=== PATIENT | male | born 1955 | race Caucasian/White ===

== ENCOUNTER 2017-12-14 09:57 | Outpatient (RCR) | payer BC, SELFPAY | END 2018-03-13 10:43 | disposition home or self-care (01) | LOC: PT 09:57 | PROVIDERS: Family Provider Internal Medicine Adolescent Medicine; PCP Internal Medicine Adolescent Medicine | DX: I21.3 ST elevation (STEMI) myocardial infarction of unspecified site (principal) | CPT/HCPCS: 93798 ==

== ENCOUNTER 2018-01-03 17:00 | Emergency (ER) | payer BC, SELFPAY ==
[2018-01-03 17:01] VITALS: PULSE 81; RESP 18; TEMP 36.5; O2SAT 90; BMI 26.9
--- NOTE | 2018-01-03 17:08 | XR_ITS ---
XR chest 2V HISTORY: ITS.REASON: chest pain ORDERING PHYSICIAN: Wenceslao Cisse MD PATIENT AGE: 62 years COMPARISON: 11/01/2017 FINDINGS: Prior median sternotomy with CABG. There is cardiomegaly with pulmonary venous congestion and interstitial edema consistent with CHF. No lobar consolidation or collapse. No acute bony anomalies. IMPRESSION: CHF with interstitial edema.
[2018-01-03 17:25] LABS: Basophils % 0.3 % (0.1-2.0); Eosinophils # 0.3 K/mm3 (0.0-0.4); Eosinophils % 4.2 % (0.1-12.0); Hematocrit 41.2 % (42.0-52.0); Hemoglobin 13.5 g/dL (14.1-18.0); Lymphocytes # 2.5 K/mm3 (0.7-4.5); Lymphocytes % 35.3 K/mm3 (10-50); Mean Corpuscular HGB Conc 32.9 g/dL (31.8-35.4); Mean Corpuscular Hemoglobin 29.5 pg (27.0-31.2); Mean Corpuscular Volume 89.9 fl (80-94); Mean Platelet Volume 7.4 fl (7.4-10.4); Monocytes # 0.5 K/mm3 (0.1-1.0); Monocytes % 7.1 % (1.7-9.3); Neutrophils # 3.8 K/mm3 (1.8-7.8); Neutrophils % 53.2 % (37.0-80.0); Platelet Count 230 K/mm3 (142-424); Red Blood Count 4.58 M/mm3 (4.60-6.20); Red Cell Distribution Width 14.1 % (11.5-17.5); White Blood Count 7.2 K/mm3 (4.8-10.8)
[2018-01-03 17:34] LABS: Alanine Aminotransferase 24 U/L (12-78); Albumin Level 3.8 gm/dL (3.4-5.0); Alkaline Phosphatase 61 U/L (46-116); Anion Gap 11.3 mEq/L (5-15); Aspartate Amino Transferase 24 U/L (15-37); Bilirubin,Total 0.3 mg/dL (0.2-1.0); Blood Urea Nitrogen 19 mg/dL (7-18); Carbon Dioxide 31 mmol/L (21.0-32.0); Chloride 106 mmol/L (98-107); Creatinine Clearance Estimated 74 mL/min (0-300); Creatinine,Serum 1.13 mg/dL (0.70-1.30); Estimated Glomerular Filt Rate 66 ml/min (>60); GFR (African American) 79 ML/MIN (>60); Globulin 3.7 gm/dl (1.3-3.2); Glucose 106 mg/dL (74-106); Potassium 3.3 mmoL/L (3.5-5.1); Sodium 145 mmol/L (136-145); Total Protein,Serum 7.5 gm/dL (6.4-8.2)
--- NOTE | 2018-01-03 17:39 | HMH.EDCP ---
ED Disposition Clinical Impression: Chest pain Qualifiers: Chest pain type: other chest pain Qualified Code(s): R07.89 - Other chest pain Disposition: Xfer Short-Term Hosp Condition on Discharge: Good Referrals: Ten Mendoza MD [Primary Care Provider] - Time of Disposition: 17:40 - Critical Care Critical Care Time: No Attestation: On 01/03/18, the high probability of a clinically significant, sudden or life threatening deterioration of the following system(s) required my full and direct attention, intervention and personal management. The time I documented below is in addition to time spent performing reported procedures but includes the following listed in this critical care notation. Medical Decision Making - Medical Records Medical records reviewed: Yes: I reviewed the patient's medical records. Vital Signs: 01/03/18 17:01 01/03/18 18:30 Temperature 97.7 F Temperature Source Oral Pulse Rate [Left Brachial] 81 67 Respiratory Rate 18 Blood Pressure [Left Arm] 132/85 Blood Pressure Mean [Left Arm] 100 Blood Pressure Source [Left Arm] Automatic Cuff Automatic Cuff Blood Pressure Position [Left Arm] Supine Sitting 02 Sat by Pulse Oximetry 90 L 92 L Oxygen Delivery Method Nasal Cannula - Lab Data Lab results reviewed: Yes: I reviewed the patient's lab results. Lab Results 01/03/18 17:05: WBC 7.2, RBC 4.58 L, Hgb 13.5 L, Hct 41.2 L, MCV 89.9, MCH 29.5, MCHC 32.9, RDW 14.1, Plt Count 230, MPV 7.4, Neut % (Auto) 53.2, Lymph % (Auto) 35.3, Owsley % (Auto) 7.1, Eos % (Auto) 4.2, Baso % (Auto) 0.3, Neut # (Auto) 3.8, Lymph # (Auto) 2.5, Owsley # (Auto) 0.5, Eos # (Auto) 0.3, Baso # (Auto) 0.0 01/03/18 17:05: Sodium 145, Potassium 3.3 L, Chloride 106, Carbon Dioxide 31, Anion Gap 11.3, BUN 19 H, Creatinine 1.13, Estimated Creat Clear 74, Estimated GFR 66, Est GFR ( Amer) 79, Glucose 106, Calcium 9.0, Total Bilirubin 0.3, AST 24, ALT 24, Alkaline Phosphatase 61, Total Protein 7.5, Albumin 3.8, Globulin 3.7 H, Albumin/Globulin Ratio 1.0 L 01/03/18 17:05: Total Creatine Kinase 148, CK-MB (CK-2) 2.2, CK-MB (CK-2) Rel Index 1.5, Troponin I 0.04 Result diagrams: 01/03/18 17:05 01/03/18 17:05 Orders (Tests/Meds): ED MEDICATIONS Discontinued Medications Generic Name Dose Route Start Last Admin Trade Name Jeyq PRN Reason Stop Dose Admin Hydromorphone HCl 1 mg 01/03/18 17:08 01/03/18 17:11 Dilaudid 2mg/Ml Syringe IV 01/03/18 17:09 1 mg ONCE ONE Administration Ondansetron HCl 4 mg 01/03/18 17:08 01/03/18 17:11 Zofran 4mg/2ml Vial IV 01/03/18 17:09 4 mg ONCE ONE Administration ORDERS Category Date Time Status XR chest 2V Stat Exams 01/03/18 17:08 Taken Cardiac Enzymes Stat Lab 01/03/18 17:37 Ordered - Radiology Data #1 Image(s): Chest Image Reviewed: Yes I reviewed the patient's radiology results, Yes I reviewed the patient's radiology image Preliminary Findings: Normal/NAD - ECG Data Tracing #1 I reviewed this ECG and interpreted as documented below: ECG normal with no acute: arrhythmias, ischemia, conduction abnormalities, chamber hypertrophy Normal Sinus Rhythm: Yes Additional Comments: Sinus rhythm with first-degree AV block, right bundle branch block, inferior infarct, age undetermined, nonspecific repolarization defect - Physician Consults Physician Consulted: Dr Rios, covering for Dr Radford, technical photographer at [facility] Time: 18:46 Reason -: Pt condition, Transfer to another facilty, Cardiology Eval/Care Comment/Response: requested the patient to transfer to the hospitalist service, Dr. Christian Anderson Inquiry Pt receiving controlled substance: No - Reevaluation(s) Time: 18:38 Reevaluation #1: Upon reevaluation appears medically stable, chest pain-free, in no acute distress. Will contact Dr. Radford at [facility] in [place] to discuss transfer. Chest Pain HPI - General Chief Complaint: Chest Mary
[2018-01-03 18:18] LABS: CKMB Relative Index 1.5 U/L (0-4.0); Creatine Kinase 148 U/L (39-308); Creatine Kinase MB 2.2 mg/ml (0.0-3.6); Troponin I 0.04 ng/ml (0.00-0.06)
[2018-01-03 18:30] VITALS: BP 132/85; PULSE 67; O2SAT 92
[2018-01-03 19:18] VITALS: BP 139/94; PULSE 65; RESP 16; TEMP 36.6; O2SAT 91
== END 2018-01-03 19:45 | disposition short-term general hospital (02) ==
PROVIDERS: Emergency Provider Emergency Medicine; Family Provider Internal Medicine Adolescent Medicine; PCP Internal Medicine Adolescent Medicine
DX: R07.89 Other chest pain (principal); Z79.82 Long term (current) use of aspirin; I25.10 Atherosclerotic heart disease of native coronary artery without angina pectoris; E78.5 Hyperlipidemia, unspecified; I10 Essential (primary) hypertension; Z95.9 Presence of cardiac and vascular implant and graft, unspecified; Z95.5 Presence of coronary angioplasty implant and graft
CPT/HCPCS: 71046; 80053; 82550; 82553; 84484; 85025; 93005; 93041; 96374; 96375; 99283; J2405

== ENCOUNTER → 2018-11-15 12:34 | Outpatient (CLI) | payer BC, SELFPAY ==
--- NOTE | 2018-11-15 12:38 | US_ITS ---
US Arterial Ankle Brachial Ind History: Claudication, leg pain, hypertension, hyperlipidemia ORDERING PHYSICIAN: Ten Mendoza MD PATIENT AGE: 63 years TECHNIQUE: Segmental pressures obtained of both right and left leg. These are compared to brachial blood pressure to yield index at each level sampled including summary ESTHER. Exercise stress ABIs not performed as the baselines are normal per vascular lab protocol. The data sheets from the procedure are available in PACS FINDINGS Rest study only performed today No prior studies available for comparison. Blood pressures reported are in millimeters mercury. RIGHT LEG ESTHER = 1.1. RIGHT LEG TBI=.87 Brachial BP: 155 Thigh BP: 158 Calf BP: 169 Ankle PT: 168 Ankle DP : 168 Digit =138 LEFT LEG ESTHER = 1.1 LEFT LEG TBI= 0.86 Brachial BPD: 159 Thigh BP: 152 Calf BP: 167 Ankle PT:173 Ankle DP: 165 Digit = 137 Pulses and waveforms: Normal IMPRESSION: The ABIs as reported above are within normal limits. Waveforms and pulses are also unremarkable.
== END ==
PROVIDERS: PCP Internal Medicine Adolescent Medicine; Visit Provider Internal Medicine Adolescent Medicine
DX: I73.9 Peripheral vascular disease, unspecified (principal)
CPT/HCPCS: 93922

== ENCOUNTER → 2020-05-07 14:49 | Outpatient (CLI) | payer BC, SELFPAY ==
[2020-05-07 15:25] LABS: Basophils % 0.5 % (0.1-2.0); Eosinophils # 0.2 K/mm3 (0.0-0.4); Hematocrit 43.7 % (42.0-52.0); Hemoglobin 14.4 g/dL (14.1-18.0); Lymphocytes # 1.4 K/mm3 (0.7-4.5); Lymphocytes % 23.8 % (10-50); Mean Corpuscular HGB Conc 33.1 g/dL (31.8-35.4); Mean Corpuscular Hemoglobin 31.4 pg (27.0-31.2); Mean Corpuscular Volume 94.9 fl (80-94); Mean Platelet Volume 7.5 fl (7.4-10.4); Monocytes # 0.4 K/mm3 (0.1-1.0); Monocytes % 6.6 % (1.7-9.3); Neutrophils # 3.8 K/mm3 (1.8-7.8); Neutrophils % 66.2 % (37.0-80.0); Platelet Count 179 K/mm3 (142-424); Red Cell Distribution Width 13.3 % (11.5-17.5); White Blood Count 5.7 K/mm3 (4.8-10.8)
[2020-05-07 18:23] LABS: Chloride 103 mmol/L (98-107); Potassium 3.9 mmoL/L (3.5-5.1); Sodium 139 mmol/L (136-145)
[2020-05-07 18:25] LABS: Blood Urea Nitrogen 25 mg/dl (9-20); Estimated Glomerular Filt Rate 75 ml/min (>60); GFR (African American) 90 ML/MIN (>60)
[2020-05-07 18:26] LABS: Alanine Aminotransferase 24 U/L (12-78); Albumin Level 3.9 g/dl (3.5-5.0); Albumin/Globulin Ratio 1.3 (1.1-1.8); Alkaline Phosphatase 57 U/L (38-126); Anion Gap 9.9 mEq/L (5-15); Aspartate Amino Transferase 30 U/L (17-59); Bilirubin,Total 0.7 mg/dl (0.2-1.3); Calcium 9.3 mg/dl (8.4-10.2); Carbon Dioxide 30 mmol/L (22.0-30.0); Chol/HDL Ratio 3.5 (1-3.5); Cholesterol 167 mg/dl (140-200); Creatine Kinase 79 U/L (55-170); Glucose 95 mg/dl (74-100); HDL Cholesterol 48 mg/dl (40-60); Total Protein,Serum 6.9 g/dl (6.3-8.2); Triglycerides 100 mg/dl (30-150); VLDL Cholesterol 20 mg/dL (0-40)
[2020-05-07 18:35] LABS: CKMB Relative Index 2.3 U/L (0-4.0); Creatine Kinase MB 1.8 ng/ml (0.0-2.03)
[2020-05-07 18:38] LABS: Troponin I 0.03 ng/ml (0.00-0.034)
== END ==
PROVIDERS: Visit Provider Nurse Practitioner Family
DX: I20.9 Angina pectoris, unspecified (principal); E78.2 Mixed hyperlipidemia; I10 Essential (primary) hypertension
CPT/HCPCS: 36415; 80053; 80061; 82550; 82553; 84484; 85025

== ENCOUNTER 2020-05-12 19:36 | Emergency (ER) | payer BC, SELFPAY ==
[2020-05-12 19:36] VITALS: PULSE 74
[2020-05-12 19:42] VITALS: BP 158/96; PULSE 74; RESP 16; TEMP 37; O2SAT 98; BMI 27.1
--- NOTE | 2020-05-12 19:50 | XR_ITS ---
PROCEDURE: XR CHEST 2V CLINICAL HISTORY: chest pain Left-sided chest pain, heart disease COMPARISON: CXR1 CHEST-PORTABLE from 11/01/2017 CXR2V XR chest 2V from 01/03/2018 CXR1VP XR chest portable from 07/24/2018 FINDINGS: Prior CABG with borderline cardiomegaly without failure. The lungs are clear without infiltrates, suspicious nodules, or pleural effusions. Degenerative changes thoracic spine IMPRESSION: No change with no acute finding Dictated by: Arturo Fuller MD 05/13/2020 09:09 Electronically signed by Arturo Fuller MD in [place] 05/13/2020 09:09
--- NOTE | 2020-05-12 19:50 | ECG_ITS ---
APPROVED REPORT Exam: Resting ECG HR:74 bpm ECG Measurements Heart Rate 74 AXES ME 270 P 44 QRSd 142 QRS 46 QT 476 T 67 QTc 528 <Conclusion> Sinus rhythm with 1st degree AV block with occasional premature ventricular complexes Right bundle branch block Inferior infarct, age undetermined Abnormal ECG Electronically signed by : Ten Mendoza, 05/13/2020 17:08:51
--- NOTE | 2020-05-12 20:04 | HMH.EDCP ---
ED Disposition Clinical Impression: Stable angina, RBBB Disposition: Home, Self-Care Condition on Discharge: Good Instructions: DI for Angina Additional Instructions: call card in am Referrals: Jessica Valentine APRN [Primary Care Provider] - - Critical Care Critical Care Time: No Attestation: On 05/12/20, the high probability of a clinically significant, sudden or life threatening deterioration of the following system(s) required my full and direct attention, intervention and personal management. The time I documented below is in addition to time spent performing reported procedures but includes the following listed in this critical care notation. Medical Decision Making - Medical Records Medical records reviewed: Yes: I reviewed the patient's medical records. - Justin Inquiry Pt receiving controlled substance: No Vital Signs: 05/12/20 19:36 05/12/20 19:42 05/12/20 20:08 Temperature 98.6 F Temperature Source Oral Pulse Rate 74 Pulse Rate [Right] 74 54 L Respiratory Rate 16 18 Blood Pressure [Right Arm] 158/96 H 148/84 H Blood Pressure Mean [Right Arm] 116 105 Blood Pressure Source [Right Arm] Automatic Cuff Blood Pressure Position [Right Arm] Supine 02 Sat by Pulse Oximetry 98 97 Oxygen Delivery Method Room Air Room Air 05/12/20 20:37 Temperature Temperature Source Pulse Rate Pulse Rate [Right] 53 L Respiratory Rate 16 Blood Pressure [Right Arm] 135/79 Blood Pressure Mean [Right Arm] 97 Blood Pressure Source [Right Arm] Blood Pressure Position [Right Arm] 02 Sat by Pulse Oximetry 97 Oxygen Delivery Method Room Air - Lab Data Lab results reviewed: Yes: I reviewed the patient's lab results. Lab Results 05/12/20 19:54: WBC 5.5, RBC 4.16 L, Hgb 13.4 L, Hct 38.8 L, MCV 93.2, MCH 32.1 H, MCHC 34.4, RDW 13.7, Plt Count 186, MPV 8.1, Neut % (Auto) 58.0, Lymph % (Auto) 31.1, Edmunds % (Auto) 6.2, Eos % (Auto) 4.4, Baso % (Auto) 0.3, Neut # (Auto) 3.2, Lymph # (Auto) 1.7, Edmunds # (Auto) 0.3, Eos # (Auto) 0.2, Baso # (Auto) 0.0 05/12/20 19:54: Sodium 140, Potassium 3.8, Chloride 107, Carbon Dioxide 27, Anion Gap 9.8, BUN 22 H, Creatinine 1.10, Estimated Creat Clear 73, Estimated GFR 67, Est GFR ( Amer) 81, Glucose 114 H, Calcium 9.1, Troponin I < 0.01 Result diagrams: 05/12/20 19:54 05/12/20 19:54 Orders (Tests/Meds): ED MEDICATIONS Generic Name Dose Route Start Last Admin Trade Name Freq PRN Reason Stop Dose Admin Sodium Chloride 1,000 mls @ 999 mls/hr 05/12/20 20:00 05/12/20 20:10 Sod Chlor 0.9% 1000ml Bag IV 05/12/20 21:00 999 mls/hr .Q1H1M JENELLE Administration Discontinued Medications Generic Name Dose Route Start Last Admin Trade Name Freq PRN Reason Stop Dose Admin Aspirin 243 mg 05/12/20 19:49 05/12/20 19:57 Aspirin 81mg Chewable Tablet PO 05/12/20 19:50 243 mg ONCE ONE Administration Nitroglycerin 1 gm 05/12/20 19:49 05/12/20 19:57 Nitroglycerin 1 Inch Oint Udp TD 05/12/20 19:50 1 gm ONCE ONE Administration ORDERS Category Date Time Status XR chest 2V Stat Exams 05/12/20 19:50 Taken Troponin I Q3H Lab 05/12/20 23:00 Ordered Troponin I Q3H Lab 05/13/20 02:00 Ordered - Radiology Data #1 Image(s): Chest Image Reviewed: Yes I reviewed the patient's radiology image Preliminary Findings: Normal/NAD - ECG Data Tracing #1 Normal Sinus Rhythm: Yes Ischemic changes: non-specific ST-T wave changes Conduction abnormalities present: RBBB, 1st degree AV block - Physician Consults Physician Consulted: raz Reason -: Pt condition Chest Pain HPI - General Chief Complaint: Chest Pain Stated Complaint: CHEST PAIN Time Seen by Provider: 05/12/20 20:00 Mode of Arrival: Ambulatory Source of Information: Patient, Medical Record Limitations: No Limitations Description of Symptoms (Recalled from ER Triage Doc. by RN): left chest pain resolved after 3 home Nitro's - History of Present Illness
[2020-05-12 20:06] LABS: Basophils % 0.3 % (0.1-2.0); Eosinophils # 0.2 K/mm3 (0.0-0.4); Eosinophils % 4.4 % (0.1-12.0); Hematocrit 38.8 % (42.0-52.0); Hemoglobin 13.4 g/dL (14.1-18.0); Lymphocytes # 1.7 K/mm3 (0.7-4.5); Lymphocytes % 31.1 % (10-50); Mean Corpuscular HGB Conc 34.4 g/dL (31.8-35.4); Mean Corpuscular Hemoglobin 32.1 pg (27.0-31.2); Mean Corpuscular Volume 93.2 fl (80-94); Mean Platelet Volume 8.1 fl (7.4-10.4); Monocytes # 0.3 K/mm3 (0.1-1.0); Monocytes % 6.2 % (1.7-9.3); Neutrophils # 3.2 K/mm3 (1.8-7.8); Platelet Count 186 K/mm3 (142-424); Red Blood Count 4.16 M/mm3 (4.60-6.20); Red Cell Distribution Width 13.7 % (11.5-17.5); White Blood Count 5.5 K/mm3 (4.8-10.8)
[2020-05-12 20:08] VITALS: BP 148/84; PULSE 54; RESP 18; O2SAT 97
[2020-05-12 20:28] LABS: Chloride 107 mmol/L (98-107)
[2020-05-12 20:29] LABS: Potassium 3.8 mmoL/L (3.5-5.1); Sodium 140 mmol/L (136-145)
[2020-05-12 20:32] LABS: Anion Gap 9.8 mEq/L (5-15); Blood Urea Nitrogen 22 mg/dl (9-20); Calcium 9.1 mg/dl (8.4-10.2); Carbon Dioxide 27 mmol/L (22.0-30.0); Creatinine Clearance Estimated 73 mL/min (50-200); Estimated Glomerular Filt Rate 67 ml/min (>60); GFR (African American) 81 ML/MIN (>60); Glucose 114 mg/dl (74-100)
[2020-05-12 20:37] VITALS: BP 135/79; PULSE 53; RESP 16; O2SAT 97
[2020-05-12 20:56] LABS: Troponin I < 0.01 ng/ml (0.00-0.034)
--- NOTE | 2020-05-12 21:10 | PC.NURSE ---
Dr Ta consulted with Dr Mancia
[2020-05-12 21:24] VITALS: BP 142/92; PULSE 69; RESP 16; TEMP 37; O2SAT 96
== END 2020-05-12 21:26 | disposition home or self-care (01) ==
PROVIDERS: Emergency Medicine; Emergency Provider Emergency Medicine; PCP Nurse Practitioner Family
DX: I20.8 Other forms of angina pectoris (principal); I45.10 Unspecified right bundle-branch block; I25.10 Atherosclerotic heart disease of native coronary artery without angina pectoris; I10 Essential (primary) hypertension; E78.5 Hyperlipidemia, unspecified; Z95.1 Presence of aortocoronary bypass graft; Z79.899 Other long term (current) drug therapy
CPT/HCPCS: 71046; 80048; 84484; 85025; 93005; 96365; 99284

== ENCOUNTER 2020-10-11 06:23 | Emergency (ER) | payer BC, SELFPAY ==
[2020-10-11 06:24] VITALS: BP 142/91; PULSE 67; RESP 16; TEMP 36.6; O2SAT 98; BMI 25.8
--- NOTE | 2020-10-11 06:51 | HMH.EDURI ---
ED Disposition Clinical Impression: Pharyngitis Disposition: Home, Self-Care Condition on Discharge: Good Instructions: DI for Acute Bronchitis Prescriptions: Azithromycin 250 mg PO DAILY 5 Days #6 tab Transmission Status: Pending to [id number] methylPREDNISolone [Medrol 4mg tab] 4 mg PO DIRECTED #21 tab Transmission Status: Pending to [id number] Referrals: Ten Mendoza MD [Primary Care Provider] - - Critical Care Critical Care Time: No Attestation: On 10/11/20, the high probability of a clinically significant, sudden or life threatening deterioration of the following system(s) required my full and direct attention, intervention and personal management. The time I documented below is in addition to time spent performing reported procedures but includes the following listed in this critical care notation. Medical Decision Making - Medical Records Medical records reviewed: Yes: I reviewed the patient's medical records. - Justin Inquiry Pt receiving controlled substance: No Vital Signs: 10/11/20 06:24 Temperature 97.9 F Temperature Source Oral Pulse Rate [Right Radial] 67 Respiratory Rate 16 Blood Pressure [Left Arm] 142/91 H Blood Pressure Mean [Left Arm] 108 Blood Pressure Source [Left Arm] Automatic Cuff Blood Pressure Position [Left Arm] Sitting 02 Sat by Pulse Oximetry 98 Oxygen Delivery Method Room Air - Lab Data Lab results reviewed: Yes: I reviewed the patient's lab results. URI/Sore Throat HPI - General Chief Complaint: Upper Respiratory Infection Stated Complaint: Sore Throat Time Seen by Provider: 10/11/20 06:51 Mode of Arrival: Ambulatory Limitations: No Limitations Description of Symptoms (Recalled from ER Triage Doc. by RN): Pt c/o soar throat starting monday, progressivly getting worse. Pt denies fevers, SOA, cough, N/V/D, nasal drainage. - History of Present Illness HPI Narrative: 65-year-old gentleman, presents to the emergency department with a sore throat and headache. Patient states that the symptoms started about 3 days ago and gradually gotten worse today presented here to the emergency department. Patient states it hurts when he swallows and he states the pain is about 3 out of 10. He also states he feels a knot in his neck. He states alleviating factors include drinking cold fluids exacerbating factors include swallowing. Patient denies any recent fever shakes or chills. Patient denies any cough or shortness of breath. Patient denies any nausea vomiting diarrhea. Patient denies any body aches. - Related Data Home Medications Medication Instructions Recorded Confirmed aspirin 81 mg tablet,delayed 81 mg PO DAILY 12/28/17 05/12/20 release hydrochlorothiazide 25 mg tablet 25 mg PO DAILY 12/28/17 05/12/20 isosorbide mononitrate 120 mg 120 mg PO DAILY 12/28/17 05/12/20 tablet,extended release 24 hr metoprolol succinate 50 mg 50 mg PO DAILY tab 12/28/17 05/12/20 tablet,extended release 24 hr nitroglycerin 0.4 mg sublingual 0.4 mg SUBLINGUAL Q5M PRN 12/28/17 05/12/20 tablet pravastatin 20 mg tablet 20 mg PO QHS 12/28/17 05/12/20 ranolazine 1,000 mg 1,000 mg PO BID tab 12/28/17 05/12/20 tablet,extended release,12 hr Previous Rx's Medication Instructions Recorded Azithromycin 250 mg PO DAILY 5 Days #6 tab 10/11/20 methylPREDNISolone [Medrol 4mg 4 mg PO DIRECTED #21 tab 10/11/20 tab] Allergies Allergy/AdvReac Type Severity Reaction Status Date / Time morphine Allergy Intermediate HIVES,SWEAT Verified 01/03/18 17:07 [facility] History - Hepatitis A Screen Drug use history?: No High risk sexual behaviors?: No History of sexually transmitted infection?: No Currently employed?: No Childcare worker?: No Do you have indoor plumbing?: Yes Do you have electricity?: Yes Attestation statement:: This patient has been screened for Hepatitis A risk factors. I have reviewed the patient's past m
[2020-10-11 07:02] VITALS: BP 138/62; PULSE 68; RESP 14; TEMP 36.6; O2SAT 97
== END 2020-10-11 07:04 | disposition home or self-care (01) ==
PROVIDERS: Emergency Provider Family Medicine; PCP Internal Medicine Adolescent Medicine
DX: J02.9 Acute pharyngitis, unspecified (principal); I10 Essential (primary) hypertension; I25.10 Atherosclerotic heart disease of native coronary artery without angina pectoris; E78.5 Hyperlipidemia, unspecified; Z95.1 Presence of aortocoronary bypass graft; Z88.5 Allergy status to narcotic agent; Z79.899 Other long term (current) drug therapy
CPT/HCPCS: 99281

== ENCOUNTER → 2021-04-21 09:40 | Outpatient (CLI) | payer BC, SELFPAY ==
[2021-04-21 10:06] LABS: Basophils % 0.5 % (0.1-2.0); Eosinophils # 0.2 K/mm3 (0.0-0.4); Eosinophils % 2.5 % (0.1-12.0); Hematocrit 43.4 % (42.0-52.0); Hemoglobin 14.4 g/dL (14.1-18.0); Lymphocytes # 1.4 K/mm3 (0.7-4.5); Lymphocytes % 22.3 % (10-50); Mean Corpuscular HGB Conc 33.1 g/dL (31.8-35.4); Mean Corpuscular Hemoglobin 30.7 pg (27.0-31.2); Mean Corpuscular Volume 92.7 fl (80-94); Mean Platelet Volume 7.6 fl (7.4-10.4); Monocytes # 0.4 K/mm3 (0.1-1.0); Monocytes % 5.6 % (1.7-9.3); Neutrophils # 4.3 K/mm3 (1.8-7.8); Neutrophils % 69.1 % (37.0-80.0); Platelet Count 195 K/mm3 (142-424); Red Blood Count 4.68 M/mm3 (4.60-6.20); Red Cell Distribution Width 13.8 % (11.5-17.5); White Blood Count 6.3 K/mm3 (4.8-10.8)
[2021-04-21 11:01] LABS: Alanine Aminotransferase 24 U/L (12-78); Albumin Level 4.2 g/dl (3.5-5.0); Albumin/Globulin Ratio 1.5 (1.1-1.8); Alkaline Phosphatase 65 U/L (38-126); Aspartate Amino Transferase 33 U/L (17-59); Bilirubin,Total 0.8 mg/dl (0.2-1.3); Blood Urea Nitrogen 27 mg/dl (9-20); Carbon Dioxide 28 mmol/L (22.0-30.0); Chloride 105 mmol/L (98-107); Chol/HDL Ratio 3.7 (1-3.5); Cholesterol 174 mg/dl (140-200); Estimated Glomerular Filt Rate 75 ml/min (>60); GFR (African American) 90 ML/MIN (>60); Globulin 2.8 g/dL (1.3-3.2); Glucose 113 mg/dl (74-100); HDL Cholesterol 47 mg/dl (40-60); Sodium 141 mmol/L (136-145); Triglycerides 69 mg/dl (30-150); VLDL Cholesterol 14 mg/dL (0-40)
[2021-04-21 11:13] LABS: Direct LDL Cholesterol 108.03 mg/dL (100-129)
[2021-04-21 11:19] LABS: 25-OH Vitamin D, Total 34.8 ng/mL (30-100); Free Thyroxine Index 2.9 ug/dL (5.93-13.13); T4 (Thyroxine) 7.9 ug/dl (5.53-11.0); Triiodothryronine (T3) Uptake 37 % (23.5-40.5)
[2021-04-21 11:33] LABS: Thyroid Stimulating Hormone 2.67 uIU/mL (0.465-4.68)
[2021-04-21 11:35] LABS: Prostate Specific Ag Screen 50.7 ng/ml (0.0-4.0)
[2021-04-21 11:53] LABS: Vitamin B12 171 pg/mL (239-931)
== END ==
PROVIDERS: Visit Provider Internal Medicine Adolescent Medicine
DX: I25.10 Atherosclerotic heart disease of native coronary artery without angina pectoris (principal); E78.2 Mixed hyperlipidemia; R53.81 Other malaise; R53.83 Other fatigue; Z12.5 Encounter for screening for malignant neoplasm of prostate
CPT/HCPCS: 36415; 80053; 80061; 82306; 82607; 84436; 84443; 84479; 85025; G0103

== ENCOUNTER → 2021-04-29 10:18 | Outpatient (CLI) | payer BC, SELFPAY ==
[2021-04-30 08:15] LABS: PSA, Free 4.38 ng/mL; Prostate Specific Ag 50.7 ng/mL (0.0-4.0)
[2021-04-30 17:32] LABS: Antiparietal Cell Antibody 74.8 Units (0.0-20.0)
== END ==
PROVIDERS: Visit Provider Internal Medicine Adolescent Medicine
DX: R97.20 Elevated prostate specific antigen [PSA] (principal); E53.8 Deficiency of other specified B group vitamins
CPT/HCPCS: 36415; 83516; 84153; 84154

== ENCOUNTER → 2021-05-11 15:19 | Outpatient (CLI) | payer BC, SELFPAY ==
--- NOTE | 2021-05-11 | ECG_ITS ---
APPROVED REPORT Exam: Resting ECG HR:61 bpm ECG Measurements Heart Rate 61 AXES AL 208 P 37 QRSd 144 QRS -15 QT 472 T 86 QTc 475 Conclusion Sinus rhythm with premature supraventricular complexes Left ventricular hypertrophy RBBB Abnormal ECG Electronically signed by : Ten Mendoza, 05/12/2021 17:50:18
[2021-05-11 16:06] LABS: Basophils % 0.4 % (0.1-2.0); Eosinophils # 0.2 K/mm3 (0.0-0.4); Eosinophils % 2.8 % (0.1-12.0); Hematocrit 39.4 % (42.0-52.0); Hemoglobin 13.6 g/dL (14.1-18.0); Lymphocytes # 1.9 K/mm3 (0.7-4.5); Mean Corpuscular HGB Conc 34.4 g/dL (31.8-35.4); Mean Corpuscular Hemoglobin 31.2 pg (27.0-31.2); Mean Corpuscular Volume 90.7 fl (80-94); Mean Platelet Volume 7.6 fl (7.4-10.4); Monocytes # 0.4 K/mm3 (0.1-1.0); Monocytes % 6.7 % (1.7-9.3); Neutrophils # 3.9 K/mm3 (1.8-7.8); Neutrophils % 61.2 % (37.0-80.0); Platelet Count 193 K/mm3 (142-424); Red Blood Count 4.34 M/mm3 (4.60-6.20); White Blood Count 6.4 K/mm3 (4.8-10.8)
[2021-05-11 16:28] LABS: Chloride 104 mmol/L (98-107); Potassium 3.8 mmoL/L (3.5-5.1); Sodium 141 mmol/L (136-145)
[2021-05-11 16:31] LABS: Blood Urea Nitrogen 29 mg/dl (9-20); Estimated Glomerular Filt Rate 67 ml/min (>60); GFR (African American) 81 ML/MIN (>60)
[2021-05-11 16:32] LABS: Anion Gap 12.8 mEq/L (5-15); Carbon Dioxide 28 mmol/L (22.0-30.0); Glucose 88 mg/dl (74-100)
== END ==
PROVIDERS: Visit Provider Otolaryngology
DX: Z20.822 Contact with and (suspected) exposure to COVID-19; Z01.818 Encounter for other preprocedural examination; D23.39 Other benign neoplasm of skin of other parts of face
CPT/HCPCS: 36415; 80048; 85025; 93005; U0003

== ENCOUNTER 2021-05-13 07:23 | Day surgery (SDC) | payer BC, SELFPAY ==
[2021-05-07 13:57] VITALS: BMI 26.6
[2021-05-13] VITALS (7 sets, daily range): BP systolic 110–139; BP diastolic 68–95; PULSE 56–59; RESP 16–18; TEMP 36.2–36.4; O2SAT 92–97
--- NOTE | 2021-05-13 08:13 | HMH.ANESCL ---
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 Consent for Planned Operative Procedure(s) Verified: Yes - Additional verifications Anesthesia Reactions: No Hx Blood Transfusions: Yes Blood Transfusion Reaction: No - Airway Assessment C-Spine Mobility Assessed: Yes TMJ Mobility Assessed: Yes Dentition: Dentures-good fit - Neurological Assessment Level of Consciousness: Awake, Alert, Appropriate - Anesthesia Plan Anesthesia Risk discussed: Yes Anesthesia Plan: Verified ASA Class: III Anesthesia Type: MAC [facility] History I have reviewed the patient's past medical history: Yes Medical History: Reports:: Coronary Artery Disease, Hyperlipidemia, Hypertension Denies:: Cancer, Diabetes Mellitus Type 1, Diabetes Mellitus Type 2, Internal Pacemaker, MRSA, Seizures *Have you ever received a pneumonia vaccine?: No *Have you received a flu vaccine this season?: No Other Medical History: Denies: Blood Transfusion Reaction Anesthesia experience/problems:: none Other Surgeries: Yes: Coronary Stent, Other (CABG, LHC-stents). No: Pacemaker Amputation: No Fractures: No - *Social History Last grade of school completed: 5th or 6th Smoking Status: Never smoker Alcohol Intake: never Alcohol Intake Frequency:: other Substance Use Type: denies use *Occupational Status:: employed Housing: house *Travel in the last 8 weeks: None Family Hx:: Coronary Artery Disease
--- NOTE | 2021-05-13 10:23 | P.OP_ITS ---
Date of procedure: 05/13/21 Pre-op Diagnosis:: cyst right taoist 3.8 cm Post-op Diagnosis:: same Procedure performed:: Excision of cyst right taoist 3.8 cm with tissue rearrangement Z-plasty repair Surgeon:: Kalen Barajas MD MAINTENANCE PLANNING CLERK:: Juan Paiz Anesthesia: MAC Estimated blood loss (mL): 5 Operative findings:: same Operative note:: With the patient under local MAC anesthetic the right taoist was prepped and draped. There was a lesion measuring at least 3 cm and an incision was made over the lesion and the lesion was identified as a cystic lesion extending deeply and it was fully mobilized using tenotomy scissors and removed in entirety. Bleeding was less than 5 cc and stopped with suction cautery. Lateral and medial incisions were made and a tissue rearrangement Z-plasty repair was done after Surgicel snow was placed in the defect. The skin was then repaired using 2-0 nylon, and Dermabond was applied. An excellent tissue rearrangement Z-plasty was performed and and dressings were applied. Patient was sent to recovery in good general condition. Condition: stable Disposition: PACU Complications:: none
== END 2021-05-13 10:45 | disposition home or self-care (01) ==
LOC: OR 07:24
PROVIDERS: PCP Internal Medicine Adolescent Medicine; Visit Provider Otolaryngology
PROC: (CPT 14040; principal; 2021-05-13 10:00)
DX: L72.0 Epidermal cyst (principal); I10 Essential (primary) hypertension; I25.10 Atherosclerotic heart disease of native coronary artery without angina pectoris; E78.5 Hyperlipidemia, unspecified; Z95.818 Presence of other cardiac implants and grafts; Z82.49 Family history of ischemic heart disease and other diseases of the circulatory system; Z88.5 Allergy status to narcotic agent; Z79.82 Long term (current) use of aspirin; Z79.899 Other long term (current) drug therapy
CPT/HCPCS: 14040

== ENCOUNTER → 2021-05-14 10:34 | Outpatient (CLI) | payer BC, SELFPAY ==
[2021-05-14 10:57] LABS: Basophils % 0.1 % (0.1-2.0); Eosinophils # 0.1 K/mm3 (0.0-0.4); Eosinophils % 0.4 % (0.1-12.0); Hematocrit 40.3 % (42.0-52.0); Hemoglobin 13.8 g/dL (14.1-18.0); Lymphocytes # 1.4 K/mm3 (0.7-4.5); Lymphocytes % 8.3 % (10-50); Mean Corpuscular HGB Conc 34.2 g/dL (31.8-35.4); Mean Corpuscular Hemoglobin 30.9 pg (27.0-31.2); Mean Corpuscular Volume 90.4 fl (80-94); Mean Platelet Volume 8.1 fl (7.4-10.4); Monocytes # 0.9 K/mm3 (0.1-1.0); Monocytes % 5.3 % (1.7-9.3); Neutrophils % 85.8 % (37.0-80.0); Platelet Count 217 K/mm3 (142-424); Red Blood Count 4.46 M/mm3 (4.60-6.20); Red Cell Distribution Width 14.1 % (11.5-17.5); White Blood Count 16.4 K/mm3 (4.8-10.8)
[2021-05-14 11:01] LABS: MANUAL DIFFERENTIAL MANUAL DIFFERENTIAL (MANUAL DIFF)
[2021-05-14 11:28] LABS: Chloride 106 mmol/L (98-107); Lymphocytes % 16 % (10-50); Monocytes % 5 % (2-9); Neutrophils % 79 % (42-76); Platelet Estimate Normal; RBC Morphology Normal; Sodium 141 mmol/L (136-145); Total Cells Counted 100
[2021-05-14 11:30] LABS: Alanine Aminotransferase 18 U/L (12-78); Alkaline Phosphatase 52 U/L (38-126); Aspartate Amino Transferase 33 U/L (17-59); Bilirubin,Total 0.7 mg/dl (0.2-1.3); Blood Urea Nitrogen 23 mg/dl (9-20); Carbon Dioxide 24 mmol/L (22.0-30.0); Estimated Glomerular Filt Rate 96 ml/min (>60); GFR (African American) 117 ML/MIN (>60)
[2021-05-14 11:31] LABS: Albumin Level 4.2 g/dl (3.5-5.0); Albumin/Globulin Ratio 1.4 (1.1-1.8); Calcium 9.3 mg/dl (8.4-10.2); Glucose 121 mg/dl (74-100); Total Protein,Serum 7.2 g/dl (6.3-8.2)
[2021-05-14 11:43] LABS: Troponin I < 0.01 ng/ml (0.00-0.034)
== END ==
PROVIDERS: Visit Provider Internal Medicine Adolescent Medicine
DX: I20.8 Other forms of angina pectoris (principal)
CPT/HCPCS: 36415; 80053; 84484; 85007; 85025

== ENCOUNTER → 2021-05-24 08:41 | Outpatient (CLI) | payer BC, SELFPAY ==
--- NOTE | 2021-05-24 08:41 | NM_ITS ---
PROCEDURE: NM BONE SCAN WHOLE BODY CLINICAL INDICATION: elevated psa COMPARISON: No exams were available for comparison TECHNIQUE: Dose 25.4 mCi technetium MDP FINDINGS: Anterior and posterior images are obtained of the entire skeleton. There was a mild amount of retained activity within the urinary bladder despite patient urinating and with repeat images. No abnormal activity evident that would indicate metastatic disease. Nonspecific increased activity noted in the right great toe and in the patella and shoulders. There is a small focus of increased activity involving the right superior pubic ramus medially. This is nonspecific and persist on the repeat pelvic images. Radiographs of this region may provide further evaluation. IMPRESSION: Overall, no convincing evidence of metastatic disease. There is a small focus of increased activity involving the right superior pubic ramus medially. Suggest radiograph for further evaluation to assure this does not represent a single blastic focus. Dictated by: Arturo Fuller MD 05/25/2021 15:00 Arturo Fuller MD in [place] 05/25/2021 15:00
--- NOTE | 2021-05-24 09:29 | HMH.ITSHM ---
Current Home Medications as stated by this patient Reynaldo Bo or sales representative education courses. RANOLAZINE PRAVASTATIN NITRO METOPROLOL ISOSORBIDE HCTZ ASA CLOPIDOGREL
[2021-05-24 14:34] LABS: Blood Urea Nitrogen 22 mg/dl (9-20); Estimated Glomerular Filt Rate 84 ml/min (>60); GFR (African American) 102 ML/MIN (>60)
== END ==
PROVIDERS: PCP Internal Medicine Adolescent Medicine; Visit Provider Urology
DX: R97.20 Elevated prostate specific antigen [PSA] (principal)
CPT/HCPCS: 36415; 78306; 82565; 84520; A9503

== ENCOUNTER → 2021-05-24 13:23 | Outpatient (CLI) | payer BC, SELFPAY | PROVIDERS: Visit Provider Urology | DX: Z01.812 Encounter for preprocedural laboratory examination (principal) | CPT/HCPCS: 36415; 82565; 84520 ==

== ENCOUNTER → 2021-05-28 10:09 | Outpatient (CLI) | payer BC, SELFPAY ==
--- NOTE | 2021-05-28 10:10 | CT_ITS ---
PROCEDURE: CT ABDOMEN PELVIS W CON CLINICAL INDICATION: elvated psa COMPARISON: No exams were available for comparison TECHNIQUE: IV Contrast: 75ML Isovue 370 Oral Contrast None Axial images obtained with sagittal and coronal reformats. All CT scans at the facility use one or more dose reduction, viz: automated exposure control, ma/kV adjustment per patient size (including targeted exams where dose is matched to indication, i.e. head), or iterative reconstruction technique. FINDINGS: LOWER THORAX: There are no previous exams available for comparison. There are bilateral noncalcified nodules in the lung bases. This includes a 9 mm nodule along the minor fissure on the right and an 8 mm nodule in the right perihilar region. There is a 6 mm noncalcified nodule in the right lower lobe other smaller nodules are present. Calcification involves the left hemidiaphragm and there is pleural calcification along the left posterior hemithorax. There has been a prior CABG with significant coronary artery calcification. ABDOMEN & PELVIS: The liver, spleen, and pancreas has an unremarkable appearance. Left adrenal gland is slightly enlarged but maintains an adrenal form shape. Gallstones are present. There is an exophytic cyst off the lower pole of the left kidney posteriorly at 3.5 cm. No renal calculi or hydronephrosis. No ureteral calculi. No evidence of appendicitis. No intestinal obstruction or free air. There is a mild amount of retained colonic feces. No evidence of diverticulitis. There is a small umbilical hernia containing fat. The prostate is somewhat prominent at 4 x 4 cm with some lobularity along the upper aspect of the prostate on the right. No pelvic adenopathy. Atheromatous changes involve the aortoiliac vessels with mild ectasia of the lower abdominal aorta at 2.6 cm. There is mild dilatation of the right and left common iliac artery at 1.6 cm on the right and 1.4 cm on the left. There is some mural thrombus within the distal abdominal aorta. Plaque is present at the ostium of the celiac artery. Small sclerotic focus is present in the right femoral neck and may be due to a bone island IMPRESSION: 1. Multiple bilateral lower lung zone pulmonary nodules as described above. These could be post inflammatory or neoplastic such as metastatic disease. Follow-up is suggested. 2. Left hemidiaphragm and posterior pleural calcifications which may be seen with asbestos related exposure. 3. Cholelithiasis. 4. Other nonacute findings as described above. Dictated by: Arturo Fuller MD 05/28/2021 13:38 Arturo Fuller MD in [place] 05/28/2021 13:38
== END ==
PROVIDERS: PCP Internal Medicine Adolescent Medicine; Visit Provider Urology
DX: R97.20 Elevated prostate specific antigen [PSA] (principal)
CPT/HCPCS: 74177; Q9967

== ENCOUNTER → 2021-06-18 08:57 | Outpatient (CLI) | payer BC, SELFPAY | PROVIDERS: Visit Provider Urology | DX: Z01.812 Encounter for preprocedural laboratory examination (principal); Z20.822 Contact with and (suspected) exposure to COVID-19; N40.2 Nodular prostate without lower urinary tract symptoms; R97.20 Elevated prostate specific antigen [PSA] | CPT/HCPCS: U0003 ==

== ENCOUNTER 2021-06-21 06:57 | Day surgery (SDC) | payer BC, SELFPAY ==
[2021-06-15 10:48] VITALS: BMI 26.6
[2021-06-21 08:00] VITALS: BP 131/82; PULSE 62; RESP 20; TEMP 36.6; O2SAT 97
--- NOTE | 2021-06-21 10:30 | HMH.ANESCL ---
[facility] Anesthesia Checklist - Patient Identification Patient Identification: Arm Band - Structural Data Admitted From: Home Planned Operative Procedure/s: Prostate biopsy Consent for Planned Operative Procedure(s) Verified: Yes - NPO Status Verified Time NPO: 00:00 - Additional verifications Anesthesia Reactions: No Hx Blood Transfusions: Yes Blood Transfusion Reaction: No - Airway Assessment C-Spine Mobility Assessed: Yes TMJ Mobility Assessed: Yes Dentition: Poor Dentition - Neurological Assessment Level of Consciousness: Awake Hx Seizures: No Numbness or tingling in extremities: No - Anesthesia Plan Anesthesia Risk discussed: Yes Anesthesia Plan: Verified ASA Class: III Anesthesia Type: Local & MAC [facility] History Medical History: Reports:: Cancer (lip), Coronary Artery Disease, Hyperlipidemia, Hypertension Denies:: Diabetes Mellitus Type 1, Diabetes Mellitus Type 2, Internal Pacemaker, MRSA, Seizures *Have you ever received a pneumonia vaccine?: No *Have you received a flu vaccine this season?: No Other Medical History: Denies: Blood Transfusion Reaction Anesthesia experience/problems:: None Other Surgeries: Yes: No Previous Surgery, Colonoscopy, Coronary Stent, Other (CABG, LHC-stents). No: Pacemaker Amputation: No Fractures: No - *Social History Last grade of school completed: 5th or 6th Smoking Status: Never smoker Alcohol Intake: never Alcohol Intake Frequency:: other Substance Use Type: denies use *Occupational Status:: employed Housing: house Household Members: family *Travel in the last 8 weeks: None Family Hx:: No significant family history
[2021-06-21 10:56] VITALS: BP 106/51; PULSE 60; RESP 18; TEMP 36.4; O2SAT 94
[2021-06-21 11:11] VITALS: BP 105/51; PULSE 57; RESP 18; TEMP 36.4; O2SAT 96
[2021-06-21 11:26] VITALS: BP 108/52; PULSE 55; RESP 18; TEMP 36.4; O2SAT 95
[2021-06-21 11:41] VITALS: BP 117/61; PULSE 55; RESP 18; TEMP 36.4; O2SAT 96
[2021-06-21 12:00] VITALS: BP 148/80; PULSE 61; RESP 18; TEMP 36.4; O2SAT 97
--- NOTE | 2021-06-21 16:29 | HMH.OPNOTE ---
Date of procedure: 06/21/21 Pre-op Diagnosis:: PSA elevation and prostate nodule Post-op Diagnosis:: Same Procedure performed:: Transrectal ultrasound prostate biopsy Surgeon:: Tima Morgan MD BUHR MILL OPERATOR:: Christopher Alejo Anesthesia: MAC Estimated blood loss (mL): 0 Clinical Note:: 66-year-old white male with recent PSA of 50 and a hard nodular prostate presents for prostate biopsy. Operative findings:: Prostate was measured at 26.6 cm?. There were significant calcifications in the central zone and the hypoechoic areas bilaterally Operative note:: Patient taken to the operating suite after informed consent was obtained. On the stretcher and monitored anesthesia care was administered and patient placed into the left lateral decubitus position. He had performed preoperative antibiotics and enema. The transrectal ultrasound probe was placed into the rectum and the prostate was easily visualized. It was measured at 26.6 cm?. There were prostatic calcifications noted in the central zone as well as hypoechoic areas at the base of the prostate bilaterally. Prostate block was performed with 5 cc of lidocaine bilaterally into the neurovascular bundle. 4 biopsies were then obtained of the left side of the prostate and 4 biopsies performed on the right side. The probe removed and the patient tolerated the procedure well. Was discharged to the recovery room in stable condition. Condition: stable Disposition: same day Specimens:: Prostate biopsies x8 Complications:: None
== END 2021-06-21 12:00 | disposition home or self-care (01) ==
LOC: OR 06:58
PROVIDERS: PCP Internal Medicine Adolescent Medicine; Visit Provider Urology
PROC: (CPT 55700; principal; 2021-06-21 09:30)
DX: R97.20 Elevated prostate specific antigen [PSA] (principal); N40.2 Nodular prostate without lower urinary tract symptoms; Z85.828 Personal history of other malignant neoplasm of skin; I25.10 Atherosclerotic heart disease of native coronary artery without angina pectoris; E78.5 Hyperlipidemia, unspecified; I10 Essential (primary) hypertension; Z88.5 Allergy status to narcotic agent; Z79.82 Long term (current) use of aspirin; Z79.899 Other long term (current) drug therapy
CPT/HCPCS: 55700; 76942

== ENCOUNTER → 2021-06-24 08:24 | Outpatient (CLI) | payer BC, SELFPAY | PROVIDERS: Visit Provider Internal Medicine Gastroenterology | DX: Z20.822 Contact with and (suspected) exposure to COVID-19 (principal) | CPT/HCPCS: U0003 ==

== ENCOUNTER 2021-06-25 06:42 | Day surgery (SDC) | payer BC, SELFPAY ==
[2021-06-23 08:33] VITALS: BMI 26.6
[2021-06-25 07:00] VITALS: BP 130/85; PULSE 66; RESP 18; TEMP 36.2; O2SAT 95
--- NOTE | 2021-06-25 08:32 | HMH.PROC ---
[facility] Procedure Note Procedure Note:: Colonoscopy Procedure Report: Colonoscopy with cold snare polypectomy Endoscopist: Parish Mackenzie II, MD Referring physician: Ten Mendoza M.D. Date of Procedure: June 25, 2021 Equipment: Olympus 190 variable stiffness pediatric colonoscope Sedation: MAC sedation Indication: Mr. Bo is a 66-year-old gentleman who is here for screening colonoscopy. His last colonoscopy 10 years ago was normal. He does have prostate cancer and is seeing Dr. Tima Morgan. The patient reports no abdominal pain, weight loss, change in his bowel habits or rectal bleeding. He reports no family history of colon cancer. 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 His PSA level was 50.7. His hemoglobin 14.4 and hematocrit 43.4 was normal. Procedure: Prior to the procedure, a history and physical exam was performed, and patient's medications and allergies were reviewed. The risks, benefits and alternatives of the sedation and procedure were discussed with the patient. All questions were answered and informed consent was obtained. The patient was brought to the procedure room. Patient identification and proposed procedure were verified by the physician and the nurse. The patient was placed in a left lateral decubitus position and the scope was passed under direct vision. Throughout the procedure, the patient's blood pressure, pulse, and oxygen saturations were monitored continuously. The colonoscopy was accomplished without difficulty. The patient tolerated the procedure well. Findings: On digital rectal examination there was normal rectal tone. There were no external hemorrhoids. The prostate digitally was very firm and asymmetric. The colonoscope was introduced through the anal canal to the rectum and advanced to the cecum. The ileocecal valve and appendiceal orifice were identified. The scope was advanced a short distance into the ileum which appeared grossly normal. The scope was then withdrawn into the colon. There were 3 colon polyps (cecum x2 (4 and 5 mm) and descending x1 (4 mm)) were removed via cold snare polypectomy. The remainder of the cecum, ascending and transverse colon and mucosa were grossly normal. There were scattered diverticuli throughout the descending and sigmoid colon (LEFT colon). The rectum itself was normal. Upon retroflexion within the rectum there were grade 1-2 internal hemorrhoids. The preparation was excellent throughout with [place] Preparation Score of 9. The cecal time was 12 minutes. Impression: 1. Colonic polyps x3 2. Left-sided diverticulosis 3. Grade 1-2 internal hemorrhoids Plan: I will follow up the polyp pathology and recommend repeat colonoscopy again in 5 years based upon the polyp histology. I would encourage bulking fiber supplementation on a long-term daily maintenance basis.
[2021-06-25 08:33] VITALS: BP 116/72; PULSE 58; RESP 18; TEMP 36.1; O2SAT 96
[2021-06-25 08:43] VITALS: BP 119/72; PULSE 57; RESP 18; O2SAT 98
[2021-06-25 08:53] VITALS: BP 138/75; PULSE 54; RESP 18; O2SAT 94
[2021-06-25 09:22] VITALS: BP 141/80; PULSE 56; RESP 18; O2SAT 96
[2021-06-25 13:19] VITALS: O2SAT 97
== END 2021-06-25 09:26 | disposition home or self-care (01) ==
LOC: OUTP 06:44
PROVIDERS: PCP Internal Medicine Adolescent Medicine; Visit Provider Internal Medicine Gastroenterology
PROC: 0DJD8ZZ Inspection of Lower Intestinal Tract, Via Natural or Artificial Opening Endoscopic (ICD-10-PCS; CPT 45378; principal; 2021-06-25 08:00)
DX: Z12.11 Encounter for screening for malignant neoplasm of colon (principal); K63.5 Polyp of colon; K57.30 Diverticulosis of large intestine without perforation or abscess without bleeding; K64.0 First degree hemorrhoids; C61 Malignant neoplasm of prostate; I25.10 Atherosclerotic heart disease of native coronary artery without angina pectoris; I10 Essential (primary) hypertension; E78.5 Hyperlipidemia, unspecified; Z95.1 Presence of aortocoronary bypass graft; Z83.3 Family history of diabetes mellitus; Z80.9 Family history of malignant neoplasm, unspecified; Z88.5 Allergy status to narcotic agent
CPT/HCPCS: 45385

== ENCOUNTER → 2021-07-02 09:53 | Outpatient (CLI) | payer BC, SELFPAY | PROVIDERS: Visit Provider Internal Medicine Gastroenterology | DX: Z01.812 Encounter for preprocedural laboratory examination (principal); Z20.822 Contact with and (suspected) exposure to COVID-19; Z13.810 Encounter for screening for upper gastrointestinal disorder | CPT/HCPCS: U0003 ==

== ENCOUNTER 2021-07-05 07:31 | Day surgery (SDC) | payer BC, SELFPAY ==
[2021-06-30 10:09] VITALS: BMI 26.6
[2021-07-05 07:49] VITALS: BP 124/68; PULSE 62; RESP 16; TEMP 36.4; O2SAT 96
--- NOTE | 2021-07-05 08:08 | HMH.ANESCL ---
[facility] Anesthesia Checklist - Patient Identification Patient Identification: Arm Band - Structural Data Admitted From: Home Planned Operative Procedure/s: EGD Consent for Planned Operative Procedure(s) Verified: Yes - NPO Status Verified Time NPO: 00:00 - Additional verifications Anesthesia Reactions: No Hx Blood Transfusions: Yes Blood Transfusion Reaction: No - Airway Assessment C-Spine Mobility Assessed: Yes TMJ Mobility Assessed: Yes Dentition: Edentulous - Neurological Assessment Level of Consciousness: Awake Hx Seizures: No Numbness or tingling in extremities: No - Anesthesia Plan Anesthesia Risk discussed: Yes Anesthesia Plan: Verified ASA Class: III Anesthesia Type: MAC [facility] History I have reviewed the patient's past medical history: Yes Medical History: Reports:: Coronary Artery Disease, Hyperlipidemia, Hypertension Denies:: Cancer, Diabetes Mellitus Type 1, Diabetes Mellitus Type 2, Internal Pacemaker, MRSA, Seizures *Have you ever received a pneumonia vaccine?: No *Have you received a flu vaccine this season?: No Other Medical History: Denies: Blood Transfusion Reaction Anesthesia experience/problems:: None Other Surgeries: Yes: No Previous Surgery, Cardiac Catheterization, Colonoscopy, Coronary Stent, Other (CABG, LHC-stents). No: Pacemaker Amputation: No Fractures: No - *Social History Last grade of school completed: 5th or 6th Smoking Status: Never smoker Alcohol Intake: never Alcohol Intake Frequency:: other Substance Use Type: denies use *Occupational Status:: employed Housing: house Household Members: family *Travel in the last 8 weeks: None Family Hx:: Coronary Artery Disease
--- NOTE | 2021-07-05 08:36 | HMH.PROC ---
[facility] Procedure Note Procedure Note:: Upper Endoscopy Procedure Report: Esophagogastroduodenoscopy with cold biopsies Endoscopost: Parish Mackenzie II, MD Referring Physician: Ten Mendoza M.D. Date of Procedure: July 05, 2021 Equipment: Olympus GIF 190 standard upper endoscope Sedation: MAC sedation Indications: Mr. Bo is a 66-year-old gentleman with low B12 levels and a positive antiparietal cell antibody. The patient does have some loose bowel movements occasionally. He did recently have a colonoscopy on June 25, 2021 that showed 3 polyps (tubular adenomas x2 and small serrated adenoma x1). The patient reports no heartburn, reflux or dysphagia. He reports no abdominal pain, melena, hematochezia or weight loss. EGD is performed to rule out atrophic gastritis. Procedure: Prior to the procedure, a history and physical exam was performed, and patient's medications and allergies were reviewed. The risks, benefits and alternatives of the sedation and procedure were discussed with the patient. All questions were answered and informed consent was obtained. The patient was brought to the procedure room. Patient identification and proposed procedure were verified by the physician and the nurse. The patient was placed in a left lateral decubitus position and the scope was passed under direct vision. Throughout the procedure, the patient's blood pressure, pulse, and oxygen saturations were monitored continuously. The upper GI endoscopy was accomplished without difficulty. The patient tolerated the procedure well. Findings: The scope was passed directly into the upper esophagus and advanced to the third portion of the duodenum. The post bulbar duodenum and duodenal bulb were normal with normal mucosa and conniventes. The scope was withdrawn through a normal duodenal bulb and pylorus into the stomach. There was minimal reactive gastropathy of the antrum. There was moderate chronic atrophic gastritis of the body and fundus of the stomach. There was loss of rugal folds and increased submucosal vascular pattern consistent with chronic atrophic gastritis. Biopsies were taken from the gastric fundus and separately from the gastric antrum. Upon retroflexion, there was no hiatal hernia. The scope was then withdrawn into the esophagus. In the distal esophagus, there was a single island of salmon-colored mucosa that was biopsied. There was no evidence of reflux esophagitis or varices or Schatzki's ring. The remainder of the esophageal mucosa was normal. Impression: 1. Chronic atrophic gastritis Plan: The patient's B12 deficiency is secondary to chronic atrophic gastritis. The patient's chronic atrophic gastritis is autoimmune (not likely H. pylori) because of the positive antiparietal cell antibody. The patient will likely require long-term B12 administration either intranasal (nascobal) or intramuscular.
[2021-07-05 08:47] VITALS: BP 106/69; PULSE 60; RESP 18; TEMP 36.1; O2SAT 94
[2021-07-05 08:57] VITALS: BP 117/77; PULSE 54; RESP 18; O2SAT 94
[2021-07-05 09:07] VITALS: BP 135/85; PULSE 56; RESP 18; O2SAT 94
[2021-07-05 09:23] VITALS: BP 120/86; PULSE 56; RESP 18; O2SAT 94
[2021-07-05 15:10] VITALS: O2SAT 97
== END 2021-07-05 09:32 | disposition home or self-care (01) ==
LOC: OUTP 07:33
PROVIDERS: PCP Internal Medicine Adolescent Medicine; Visit Provider Internal Medicine Gastroenterology
PROC: 0DJ08ZZ Inspection of Upper Intestinal Tract, Via Natural or Artificial Opening Endoscopic (ICD-10-PCS; CPT 43235; principal; 2021-07-05 08:30)
DX: K29.40 Chronic atrophic gastritis without bleeding (principal); E53.8 Deficiency of other specified B group vitamins; R76.8 Other specified abnormal immunological findings in serum; Z86.010 Personal history of colon polyps; I25.10 Atherosclerotic heart disease of native coronary artery without angina pectoris; E78.5 Hyperlipidemia, unspecified; I10 Essential (primary) hypertension; Z88.5 Allergy status to narcotic agent; Z79.82 Long term (current) use of aspirin; Z79.899 Other long term (current) drug therapy
CPT/HCPCS: 43239

== ENCOUNTER → 2021-07-05 14:37 | Outpatient (CLI) | payer BC, SELFPAY ==
--- NOTE | 2021-07-05 14:40 | XR_ITS ---
PROCEDURE: XR KUB CLINICAL INDICATION: prostate cancer COMPARISON: NM NM BONE SCAN WHOLE BODY from 05/24/[address] ABDOMEN PELVIS W CON from 05/28/2021 FINDINGS: There is a mild amount of retained colonic feces. There are 2 small calcific densities in the right pelvic region which may be due to phleboliths. There is recent abnormal bone scan showing increased activity in the right superior pubic ramus region. No blastic lesion is evident at this area. Review CT scan 05/28/2021 showed a small lucent area at that region with a sclerotic margin possibly and may be due to fibrous cortical defect. Follow-up suggested to confirm stability. IMPRESSION: No blastic lesions apparent. CT scan demonstrates a small lucency at the region of the superior pubic ramus on the right with a sclerotic margin possibly due to a cortical defect. Not typical appearance for prostate metastatic focus. However, would recommend CT follow-up in 3 months to confirm short term stability due to the increased activity noted on bone scan. Dictated by: Arturo Fuller MD 07/05/2021 15:19 Arturo Fuller MD in OV 07/05/2021 15:19
== END ==
PROVIDERS: PCP Internal Medicine Adolescent Medicine; Visit Provider Urology
DX: C61 Malignant neoplasm of prostate (principal)
CPT/HCPCS: 74018

== ENCOUNTER → 2021-08-12 08:55 | Outpatient (CLI) | payer BC, SELFPAY | PROVIDERS: Visit Provider Urology | DX: Z01.812 Encounter for preprocedural laboratory examination (principal); Z11.52 Encounter for screening for COVID-19; C61 Malignant neoplasm of prostate | CPT/HCPCS: C9803; U0003; U0005 ==

== ENCOUNTER 2021-08-13 07:22 | Day surgery (SDC) | payer BC, SELFPAY ==
[2021-08-10 15:16] VITALS: BMI 26.6
[2021-08-13 07:37] VITALS: BP 156/89; PULSE 60; RESP 18; TEMP 36.4; O2SAT 100
[2021-08-13 09:42] VITALS: BP 131/76; PULSE 65; RESP 18; TEMP 36.3; O2SAT 94
[2021-08-13 09:52] VITALS: BP 126/86; PULSE 54; RESP 18; O2SAT 94
--- NOTE | 2021-08-13 09:59 | HMH.ANESCL ---
[facility] Anesthesia Checklist - Patient Identification Patient Identification: Arm Band - Structural Data Admitted From: Home Planned Operative Procedure/s: Transrectal U/S with Gold Seed Placment Consent for Planned Operative Procedure(s) Verified: Yes Verified Documents: Surgical Consent, History and Physical - NPO Status Verified Time NPO: 00:00 - Additional verifications Anesthesia Reactions: No Hx Blood Transfusions: Yes Blood Transfusion Reaction: No - Airway Assessment C-Spine Mobility Assessed: Yes (mp2) TMJ Mobility Assessed: Yes Dentition: Poor Dentition - Neurological Assessment Level of Consciousness: Awake, Alert - Anesthesia Plan Anesthesia Risk discussed: Yes Anesthesia Plan: Verified ASA Class: III Anesthesia Type: MAC [facility] History I have reviewed the patient's past medical history: Yes Medical History: Reports:: Cancer (prostate), Coronary Artery Disease, Hyperlipidemia, Hypertension Denies:: Diabetes Mellitus Type 1, Diabetes Mellitus Type 2, Internal Pacemaker, MRSA, Seizures *Have you ever received a pneumonia vaccine?: No *Have you received a flu vaccine this season?: Yes Other Medical History: Reports: Arthritis. Denies: Blood Transfusion Reaction Anesthesia experience/problems:: nac Other Surgeries: Yes: CABG, Cancer Surgery, Cardiac Catheterization, Colonoscopy, Coronary Stent, Other (CABG, LHC-stents). No: Pacemaker Amputation: No Fractures: No - *Social History Last grade of school completed: High school graduate Smoking Status: Never smoker Alcohol Intake: never Alcohol Intake Frequency:: other Substance Use Type: denies use *Occupational Status:: employed Housing: house Household Members: family *Travel in the last 8 weeks: None Family Hx:: Cancer
[2021-08-13 10:02] VITALS: BP 130/76; PULSE 55; RESP 18; O2SAT 96
[2021-08-13 10:12] VITALS: BP 128/84; PULSE 52; RESP 18; O2SAT 96
[2021-08-13 10:30] VITALS: BP 135/81; PULSE 56; RESP 18; O2SAT 93
--- NOTE | 2021-08-13 16:26 | P.OP_ITS ---
Date of procedure: 08/13/21 Pre-op Diagnosis:: Prostate cancer Post-op Diagnosis:: Prostate cancer Procedure performed:: Placement of gold fiducials into the prostate utilizing transrectal ultrasound guidance Surgeon:: Tima Morgan MD SPA CONSULTANT:: Juan Paiz Anesthesia: MAC Estimated blood loss (mL): 0 Clinical Note:: 66-year-old white male with recently diagnosed prostate cancer is opted for CyberKnife therapy. He has seen Dr. Mireles at [facility] and presents for placement of gold fiducials in preparation for CyberKnife therapy. Operative findings:: Refills were placed without complication. Operative note:: Patient taken to the operating suite after informed consent was obtained. He was placed on the operating table in the left lateral decubitus position and monitored anesthesia care administered. His legs were brought up into the position with a pillow between now. After adequate analgesia a transrectal ultrasound probe was placed into the rectum and the prostate was easily visualized. Local anesthetic placed into each neurovascular bundle and four gold seeds were then placed. One at the right base within 2 mm of the capsule and one at the right apex one at the left apex and one at the left base. All fiducials were within 2 to 3 mm of the prostate capsule. There was good placement of the four seeds. There is no bleeding noted and probe was removed without complication. Patient tolerated well. Condition: stable Disposition: same day Specimens:: None Complications:: None
== END 2021-08-13 10:35 | disposition home or self-care (01) ==
LOC: OR 07:23
PROVIDERS: PCP Internal Medicine Adolescent Medicine; Visit Provider Urology
PROC: (CPT 55876; principal; 2021-08-13 09:00)
DX: C61 Malignant neoplasm of prostate (principal); I25.10 Atherosclerotic heart disease of native coronary artery without angina pectoris; E78.5 Hyperlipidemia, unspecified; I10 Essential (primary) hypertension; M19.90 Unspecified osteoarthritis, unspecified site; Z95.1 Presence of aortocoronary bypass graft; Z80.9 Family history of malignant neoplasm, unspecified; Z88.5 Allergy status to narcotic agent; Z79.82 Long term (current) use of aspirin; Z79.899 Other long term (current) drug therapy
CPT/HCPCS: 55876; 76942; 96374

== ENCOUNTER → 2021-12-09 10:52 | Outpatient (CLI) | payer BC, SELFPAY ==
[2021-12-09 11:16] LABS: Basophils % 0.5 % (0.1-2.0); Eosinophils # 0.2 K/mm3 (0.0-0.4); Eosinophils % 3.9 % (0.1-12.0); Hematocrit 36.9 % (42.0-52.0); Hemoglobin 12.1 g/dL (14.1-18.0); Lymphocytes # 0.8 K/mm3 (0.7-4.5); Lymphocytes % 14.8 % (10-50); Mean Corpuscular HGB Conc 32.7 g/dL (31.8-35.4); Mean Corpuscular Hemoglobin 31.2 pg (27.0-31.2); Mean Corpuscular Volume 95.2 fl (80-94); Mean Platelet Volume 7.5 fl (7.4-10.4); Monocytes # 0.3 K/mm3 (0.1-1.0); Monocytes % 5.3 % (1.7-9.3); Neutrophils # 4.3 K/mm3 (1.8-7.8); Neutrophils % 75.5 % (37.0-80.0); Platelet Count 206 K/mm3 (142-424); Red Blood Count 3.88 M/mm3 (4.60-6.20); Red Cell Distribution Width 14.1 % (11.5-17.5); White Blood Count 5.7 K/mm3 (4.8-10.8)
[2021-12-09 12:42] LABS: Alanine Aminotransferase 21 U/L (12-78); Albumin Level 3.9 g/dl (3.5-5.0); Albumin/Globulin Ratio 1.5 (1.1-1.8); Alkaline Phosphatase 61 U/L (38-126); Anion Gap 8.9 mEq/L (5-15); Aspartate Amino Transferase 32 U/L (17-59); Bilirubin,Total 0.6 mg/dl (0.2-1.3); Blood Urea Nitrogen 25 mg/dl (9-20); Calcium 9.3 mg/dl (8.4-10.2); Carbon Dioxide 32 mmol/L (22.0-30.0); Chloride 101 mmol/L (98-107); Chol/HDL Ratio 4.2 (1-3.5); Cholesterol 183 mg/dl (140-200); Estimated Glomerular Filt Rate 84 ml/min (>60); GFR (African American) 102 ML/MIN (>60); Globulin 2.6 g/dL (1.3-3.2); Glucose 126 mg/dl (74-100); HDL Cholesterol 44 mg/dl (40-60); Potassium 3.9 mmoL/L (3.5-5.1); Sodium 138 mmol/L (136-145); Total Protein,Serum 6.5 g/dl (6.3-8.2); Triglycerides 65 mg/dl (30-150); VLDL Cholesterol 13 mg/dL (0-40)
== END ==
PROVIDERS: Visit Provider Internal Medicine Adolescent Medicine
DX: I25.10 Atherosclerotic heart disease of native coronary artery without angina pectoris (principal); E78.2 Mixed hyperlipidemia
CPT/HCPCS: 36415; 80053; 80061; 85025

== ENCOUNTER → 2022-01-20 10:24 | Outpatient (CLI) | payer BC, SELFPAY ==
[2022-01-20 11:41] LABS: Prostate Specific Ag, Diagnost 0.077 ng/ml (0.0-4.0)
[2022-01-25 18:09] LABS: Testosterone, Total, LC/MS 12.7 ng/dL (264.0-916.0)
== END ==
PROVIDERS: Visit Provider Urology
DX: C61 Malignant neoplasm of prostate (principal)
CPT/HCPCS: 36415; 84153; 84403

== ENCOUNTER → 2022-03-25 10:16 | Outpatient (CLI) | payer BC, SELFPAY ==
--- NOTE | 2022-03-25 10:21 | XR_ITS ---
FINAL REPORT CLINICAL HISTORY: RIGHT ANTERIOR SHOULDER PAIN FINDINGS: RIGHT SHOULDER Three views demonstrate no acute fracture or dislocation. There is mild anterior osteophyte formation at the acromioclavicular joint. The soft tissues are unremarkable. IMPRESSION: Mild anterior osteophyte formation at the acromioclavicular joint. No acute process. Reviewed, Interpreted and Dictated by Walter Ayala MD Transcribed by Elana Grey Authenticated by Walter Ayala MD on 03/25/2022 11:16:[address] [facility]
--- NOTE | 2022-03-25 10:21 | XR_ITS ---
FINAL REPORT CLINICAL HISTORY: NECK PAIN FINDINGS: CERVICAL SPINE Five views were obtained. There is no acute fracture. There is no malalignment. There is mild anterior osteophyte formation at C4-C5. There is no soft tissue abnormality. IMPRESSION: Mild anterior osteophyte formation at C4-C5. No acute process. Reviewed, Interpreted and Dictated by Walter Ayala MD Transcribed by Elana Grey Authenticated by Walter Ayala MD on 03/25/2022 11:33:04 AM [facility]
== END ==
PROVIDERS: PCP Internal Medicine Adolescent Medicine; Visit Provider Internal Medicine Adolescent Medicine
DX: M54.2 Cervicalgia (principal); M25.511 Pain in right shoulder
CPT/HCPCS: 72050; 73030

== ENCOUNTER → 2022-07-21 10:58 | Outpatient (CLI) | payer BC, SELFPAY ==
[2022-07-22 11:16] LABS: PSA, Free <0.01 ng/mL; Prostate Specific Ag <0.1 ng/mL (0.0-4.0)
== END ==
PROVIDERS: PCP Internal Medicine Adolescent Medicine; Visit Provider Urology
DX: R97.20 Elevated prostate specific antigen [PSA] (principal)
CPT/HCPCS: 36415; 84153; 84154

== ENCOUNTER 2022-08-04 08:47 | Emergency (ER) | payer BC, SELFPAY ==
[2022-08-04] VITALS (13 sets, daily range): BP systolic 136–182; BP diastolic 77–106; PULSE 53–79; RESP 8–16; TEMP 36.5–36.6; O2SAT 92–98; BMI 28.1
--- NOTE | 2022-08-04 08:50 | XR_ITS ---
FINAL REPORT CLINICAL HISTORY: chest pain COMPARISON: May 12, 2020 FINDINGS: Cardiomegaly is noted. There has been prior median sternotomy. There is mild bibasilar atelectasis or scarring. There is no pleural effusion. There is no pneumothorax. The bony thorax is intact. IMPRESSION: Mild bibasilar atelectasis or scarring. Reviewed, Interpreted and Dictated by Gurvinder Buckley III, MD Transcribed by Sixto Conte Authenticated and [facility]
--- NOTE | 2022-08-04 08:53 | HMH.EDGENADL ---
Discharge Plan Disposition Patient Disposition: Xfer Short-Term Hosp Condition: Good Chief Complaint: Chest Pain Prescriptions Prescriptions: No Action pravastatin 20 mg tablet 20 mg PO QHS aspirin [Adult Low Dose Aspirin] 81 mg tablet,delayed release (DR/EC) 81 mg PO DAILY hydrochlorothiazide 25 mg tablet 25 mg PO DAILY isosorbide mononitrate 120 mg tablet extended release 24 hr 120 mg PO DAILY metoprolol succinate 50 mg tablet extended release 24 hr 50 mg PO DAILY nitroglycerin [Nitrostat] 0.4 mg tablet, sublingual 0.4 mg SUBLINGUAL Q5M PRN (Reason: cp) ranolazine [Ranexa] 1,000 mg tablet extended release 12 hr 1,000 mg PO BID clopidogrel 75 MG tablet 75 mg PO DAILY Referrals Follow up/Referrals: Ten Mendoza MD [Primary Care Provider] - See instructions Clinical Impressions Clinical Impression: Chest pain, Accelerated hypertension Discharge ED Provider: Delgado Bernard General Adult HPI General Chief complaint: Chest Pain Stated complaint: CHEST PAIN Time Seen by Provider: 08/04/22 08:54 History of Present Illness HPI narrative: 45 minutes ago while taking a shower the patient developed pain in his left anterior chest. Denies shortness of breath, nausea, diaphoresis, or radiation. The pain feels similar to his previous heart pain. States that he took 2 nitroglycerin with some relief, but pain is still -04/2010. States that he has an extensive cardiac history, coronary artery bypass surgery 1996 and states he has had 12 or 13 stents. States that his last stent was about 3 years ago. No heart cath since then. He says his cash room clerk was Dr. Radford, who has since retired, but he says he still sees the same group at [facility], and prefers to be transferred to that facility. He tested + for Covid 3 wks ago. Related Data Home Medications Medication Instructions Recorded Confirmed aspirin 81 mg tablet,delayed 81 mg PO DAILY heart health 12/28/17 07/21/22 release (Adult Low Dose Aspirin) hydrochlorothiazide 25 mg tablet 25 mg PO DAILY htn 12/28/17 07/21/22 isosorbide mononitrate 120 mg 120 mg PO DAILY bp 12/28/17 07/21/22 tablet,extended release 24 hr metoprolol succinate 50 mg 50 mg PO DAILY bp 12/28/17 07/21/22 tablet,extended release 24 hr nitroglycerin 0.4 mg sublingual 0.4 mg sublingual Q5M PRN cp 12/28/17 07/21/22 tablet (Nitrostat) pravastatin 20 mg tablet 20 mg PO QHS lipids 12/28/17 07/21/22 ranolazine 1,000 mg 1,000 mg PO BID Heart failure 12/28/17 07/21/22 tablet,extended release,12 hr (Ranexa) clopidogrel 75 mg tablet 75 mg PO DAILY heart healthy 05/13/21 07/21/22 Allergies Allergy/AdvReac Type Severity Reaction Status Date / Time morphine Allergy Intermediate HIVES,SWEAT Verified 07/21/22 10:29 [facility] Social History (Updated 07/21/22 @ 13:13 by Tima Morgan MD) Smoking Status: Never smoker second hand exposure: No alcohol intake: never substance use type: denies use current occupational status: employed Travel in the last 8 weeks: None household members: family housing: house 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 current occupational exposures/hazards: No caffeine: Yes ROS Obtained: Yes Systems reviewed as appropriate & no additional complaints except as documented Constitutional Constitutional: Denies fever(s) Cardiovascular Cardiovascular: Reports chest pain, Denies diaphoresis and Denies radiating jaw, neck or arm pain Respiratory Respiratory: Denies shortness of breath Gastrointestinal Gastrointestingal: Denies abdominal pain, nausea or vomiting Physical Exam General General appearance: alert and in no apparent distress Head Head exam: atraumatic and normocephalic Eye Eye exam: Present normal appearance and EOMI ENT ENT exam: Present mucous membranes moist Neck Neck exam: Present normal inspection and trachea midline Chest Chest inspection: Pres
--- NOTE | 2022-08-04 09:02 | PC.NURSE ---
RADIOLOGY AT BEDSIDE
[2022-08-04 09:12] LABS: Basophils % 0.4 % (0.1-2.0); Chloride 105 mmol/L (98-107); Eosinophils # 0.2 K/mm3 (0.0-0.4); Eosinophils % 5.1 % (0.1-12.0); Hematocrit 37.2 % (42.0-52.0); Hemoglobin 11.4 g/dL (14.1-18.0); Lymphocytes # 1.1 K/mm3 (0.7-4.5); Lymphocytes % 23.5 % (10-50); Mean Corpuscular HGB Conc 30.7 g/dL (31.8-35.4); Mean Corpuscular Hemoglobin 30.1 pg (27.0-31.2); Monocytes # 0.3 K/mm3 (0.1-1.0); Monocytes % 6.8 % (1.7-9.3); Neutrophils % 64.2 % (37.0-80.0); Platelet Count 217 K/mm3 (142-424); Red Blood Count 3.79 M/mm3 (4.60-6.20); Red Cell Distribution Width 13.8 % (11.5-17.5); Sodium 141 mmol/L (136-145); White Blood Count 4.6 K/mm3 (4.8-10.8)
[2022-08-04 09:13] LABS: Potassium 4.2 mmoL/L (3.5-5.1)
[2022-08-04 09:16] LABS: Anion Gap 10.2 mEq/L (5-15); Blood Urea Nitrogen 23 mg/dl (9-20); Calcium 8.7 mg/dl (8.4-10.2); Carbon Dioxide 30 mmol/L (22.0-30.0); Creatinine Clearance Estimated 82 mL/min (50-200); Estimated Glomerular Filt Rate 84 ml/min (>60); GFR (African American) 102 ML/MIN (>60); Glucose 106 mg/dl (74-100)
[2022-08-04 09:29] LABS: Troponin I 0.01 ng/ml (0.00-0.034)
[2022-08-04 09:37] LABS: Influenza A, PCR Not Detected (NotDetected); Influenza B, PCR Not Detected (NotDetected)
--- NOTE | 2022-08-04 09:47 | PC.NURSE ---
[facility] for internal combustion engine inspector physician
[2022-08-04 09:59] LABS: Coronavirus 19, PCR Detected (NotDetected)
--- NOTE | 2022-08-04 10:03 | PC.NURSE ---
ROUNDED ON PT AND ASKED IF THEY NEEDED ANYTHING. PT STATED THAT THEY HAD NE NEEDS AT THIS TIME.
--- NOTE | 2022-08-04 10:05 | PC.NURSE ---
[facility] CALLED TO SPEAK WITH ER DOCTOR JUSTINE FONTANEZ
--- NOTE | 2022-08-04 10:18 | PC.NURSE ---
ARIAS BALDWIN reports he spoke JAMES Smith with [facility] cardiology, reports they will have transfer center call us back to speak with the hospitalist about admission
--- NOTE | 2022-08-04 10:34 | PC.NURSE ---
[facility] hospitalist spoke with ER MD on admitting pt, admitting MD BOLAND
--- NOTE | 2022-08-04 11:09 | PC.NURSE ---
[facility] CALLED BACK AND HAS A ROOM READY FOR THE PT, FACE SHEET WAS FAXED AND NUMBER WAS TAKEN FOR NURSE TO CALL REPORT
--- NOTE | 2022-08-04 11:09 | PC.NURSE ---
contacted rad to request disc for images
--- NOTE | 2022-08-04 11:22 | PC.NURSE ---
notified [facility] of transport to [facility]
--- NOTE | 2022-08-04 11:24 | PC.NURSE ---
attempted to call report nurse is busy will have to call back
--- NOTE | 2022-08-04 11:47 | PC.NURSE ---
[facility] here to transfer pt
--- NOTE | 2022-08-04 11:48 | PC.NURSE ---
2nd trop drawn and sent to lab
--- NOTE | 2022-08-04 11:48 | PC.NURSE ---
Staci SWEENEY sent 2nd TROP before pt departure
--- NOTE | 2022-08-04 11:52 | PC.NURSE ---
report called to [facility].
--- NOTE | 2022-08-04 11:52 | PC.NURSE ---
report called to floor
--- NOTE | 2022-08-04 12:05 | PC.NURSE ---
report given to mathieu. pt transferred to [facility]
[2022-08-04 12:28] LABS: Troponin I < 0.01 ng/ml (0.00-0.034)
== END 2022-08-04 12:17 | disposition short-term general hospital (02) ==
PROVIDERS: Emergency Provider Emergency Medicine; PCP Internal Medicine Adolescent Medicine
DX: R07.9 Chest pain, unspecified (principal); I10 Essential (primary) hypertension; Z79.82 Long term (current) use of aspirin; Z79.899 Other long term (current) drug therapy; Z88.5 Allergy status to narcotic agent; I45.10 Unspecified right bundle-branch block; C61 Malignant neoplasm of prostate
CPT/HCPCS: 71045; 80048; 84484; 85025; 96365; 96366; 96375; 96376; 99284; C9803; J2405; U0003; U0005

== ENCOUNTER → 2023-02-23 15:46 | Outpatient (CLI) | payer BC, SELFPAY ==
--- NOTE | 2023-02-23 15:51 | XR_ITS ---
FINAL REPORT CLINICAL HISTORY: Cough w congestion x 1 wk. Nonsmoker. COMPARISON: 08/04/2022 FINDINGS: PA and lateral views of the chest were obtained. The heart is enlarged. The patient is status post median sternotomy. The lungs are clear. There is no pleural effusion or pneumothorax. No acute osseous abnormality is identified. IMPRESSION: No radiographic evidence of acute cardiac or pulmonary disease. Reviewed, Interpreted and Dictated by Eleanor Heard MD Transcribed by Staci Rios Authenticated and [facility]
== END ==
PROVIDERS: PCP Internal Medicine Adolescent Medicine; Visit Provider Physician Assistant
DX: J06.9 Acute upper respiratory infection, unspecified (principal); R05.9 Cough, unspecified
CPT/HCPCS: 71046

== ENCOUNTER 2023-03-26 20:14 | Emergency (ER) | payer BC, SELFPAY ==
[2023-03-26] VITALS (9 sets, daily range): BP systolic 141–208; BP diastolic 85–120; PULSE 58–92; RESP 11–16; TEMP 37.1; O2SAT 92–98; BMI 28.1
--- NOTE | 2023-03-26 20:25 | XR_ITS ---
PROCEDURE INFORMATION: Exam: XR Chest Exam date and time: 03/26/2023 8:23 PM Age: 68 years old Clinical indication: Pain; Chest pressure; Additional info: Cp TECHNIQUE: Imaging protocol: Radiologic exam of the chest. Views: 2 views. COMPARISON: CR XR CHEST 2V 02/23/2023 3:53 PM FINDINGS: Lungs: Hazy opacity at the left lung base. Pleural spaces: No pneumothorax. Heart/Mediastinum: Stable cardiac contour. Bones/joints: Median sternotomy wires. IMPRESSION: Hazy opacity at the left lung base which may be on the basis of atelectasis or pneumonia. Follow-up to radiographic clearance is recommended.
--- NOTE | 2023-03-26 20:25 | ECG_ITS ---
APPROVED REPORT Exam: Resting ECG HR:92 bpm ECG Measurements Heart Rate 92 AXES ID 196 P -44 QRSd 154 QRS 53 QT 407 T 60 QTc 456 Conclusion SINUS RHYTHM INTRAVENTRICULAR CONDUCTION DELAY [130+ ms QRS DURATION] ABNORMAL ECG UNCONFIRMED REPORT Electronically signed by : Ten Mendoza MD 03/27/2023 20:15:05
[2023-03-26 20:38] LABS: Chloride 102 mmol/L (98-107); Sodium 140 mmol/L (136-145)
[2023-03-26 20:41] LABS: Alanine Aminotransferase 33 U/L (12-78); Alkaline Phosphatase 65 U/L (38-126); Anion Gap 10.9 mEq/L (5-15); Aspartate Amino Transferase 39 U/L (17-59); Bilirubin,Indirect 0.5 mg/dL (0.0-0.9); Bilirubin,Total 0.5 mg/dl (0.2-1.3); Bilirubin,Unconjugated 0.5 mg/dL (0.0-1.1); Blood Urea Nitrogen 27 mg/dl (9-20); Calcium 9.1 mg/dl (8.4-10.2); Carbon Dioxide 30 mmol/L (22.0-30.0); Creatinine Clearance Estimated 73 mL/min (50-200); Estimated Glomerular Filt Rate 66 ml/min (>60); GFR (African American) 80 ML/MIN (>60); Glucose 129 mg/dl (74-100)
[2023-03-26 20:42] LABS: Albumin Level 4.1 g/dl (3.5-5.0); Basophils % 0.2 % (0.1-2.0); Eosinophils # 0.2 K/mm3 (0.0-0.4); Eosinophils % 3.7 % (0.1-12.0); Hematocrit 39.1 % (42.0-52.0); Hemoglobin 12.6 g/dL (14.1-18.0); Lymphocytes # 1.5 K/mm3 (0.7-4.5); Lymphocytes % 25.7 % (10-50); Mean Corpuscular HGB Conc 32.3 g/dL (31.8-35.4); Mean Corpuscular Hemoglobin 30.2 pg (27.0-31.2); Mean Corpuscular Volume 93.6 fl (80-94); Mean Platelet Volume 7.4 fl (7.4-10.4); Monocytes # 0.4 K/mm3 (0.1-1.0); Monocytes % 7.3 % (1.7-9.3); Neutrophils # 3.6 K/mm3 (1.8-7.8); Neutrophils % 63.1 % (37.0-80.0); Platelet Count 220 K/mm3 (142-424); Red Blood Count 4.18 M/mm3 (4.60-6.20); Red Cell Distribution Width 14.4 % (11.5-17.5); Total Protein,Serum 7.3 g/dl (6.3-8.2); White Blood Count 5.7 K/mm3 (4.8-10.8)
--- NOTE | 2023-03-26 20:45 | PC.NURSE ---
[place] on phone with configuration specialist cardiology
[2023-03-26 20:47] LABS: INR 0.98 (0.9-1.1); Prothrombin Time 10.6 seconds (10.1-12.5)
[2023-03-26 20:59] LABS: Potassium 2.9 mmoL/L (3.5-5.1); Troponin I < 0.01 ng/ml (0.00-0.034)
--- NOTE | 2023-03-26 21:00 | PC.NURSE ---
Dr. Davis notified of critical potassium
[2023-03-26 21:01] LABS: Coronavirus 19, PCR Not Detected (NotDetected); Influenza A, PCR Not Detected (NotDetected); Influenza B, PCR Not Detected (NotDetected)
--- NOTE | 2023-03-26 21:21 | PC.NURSE ---
Dr. Davis notified that pt requesting to go to [facility], where his estimator lumber Dr. Gonzales is location.
[2023-03-26 22:12] LABS: Microscopic, Urine URINE MICROSCOPIC (MICROSCOPIC)
[2023-03-26 22:16] LABS: Appearance,Urine CLEAR (Clear); Bilirubin,Urine Negative (Negative); Blood, Urine Negative (Negative); Color,Urine YELLOW (Yellow); Glucose,Urine (UA) 3+ (Negative); Ketones,Urine Negative (Negative); Leukocyte Esterase,Urine Negative (Negative); Nitrate,Urine Negative (Negative); Protein,Urine Negative (Negative); Urobilinogen,Urine 0.2 EU/dl (0.2)
--- NOTE | 2023-03-26 22:20 | PC.NURSE ---
security tech notified to make a disc of radiology images d/t possible transfer
[2023-03-26 22:25] LABS: C-Reactive Protein 2.6 mg/L (0-4)
[2023-03-26 22:31] LABS: Bacteria,Urine Trace /lpf; RBC,Urine Occasional #/hpf (0-3); Squamous Epithelial Cell,Urine Occasional #/hpf (0-5)
[2023-03-26 22:39] LABS: Procalcitonin 0.049 ng/mL (0.0-2.0)
--- NOTE | 2023-03-26 22:55 | PC.NURSE ---
SPOKE WITH CAYETANO AT [facility]. POTASSIUM IS COMPATIBLE WITH NITRO DRIP.
[2023-03-26 23:20] LABS: Troponin I 0.01 ng/ml (0.00-0.034)
--- NOTE | 2023-03-26 23:28 | PC.NURSE ---
Spoke with Modesta at [facility] about pt going to [place]. Advised they had no immediate beds available at [facility] but she would check at [facility], and call us back
[2023-03-27] VITALS (13 sets, daily range): BP systolic 147–196; BP diastolic 89–132; PULSE 56–95; RESP 12–27; TEMP 36.7; O2SAT 92–99
--- NOTE | 2023-03-27 00:09 | PC.NURSE ---
Dr. Davis s/w Dr. Carlton [facility] for possible transfer.
--- NOTE | 2023-03-27 00:50 | PC.NURSE ---
[facility] called to request patient face sheet. Modesta also advised that they had no immediate beds available and the pt would most likely not be able to be transferred until morning and the patient would have to go to the ER.
--- NOTE | 2023-03-27 00:52 | PC.NURSE ---
Faxed face sheet to transfer center [phone] and received confirmation
--- NOTE | 2023-03-27 02:39 | [facility].EDCP ---
Discharge Plan Disposition Patient Disposition: Xfer Short-Term Hosp Condition: Fair Prescriptions Prescriptions: No Action pravastatin 20 mg tablet 20 mg PO QHS aspirin [Adult Low Dose Aspirin] 81 mg tablet,delayed release (DR/EC) 81 mg PO DAILY hydrochlorothiazide 25 mg tablet 25 mg PO DAILY isosorbide mononitrate 120 mg tablet extended release 24 hr 120 mg PO DAILY metoprolol succinate 50 mg tablet extended release 24 hr 50 mg PO DAILY nitroglycerin [Nitrostat] 0.4 mg tablet, sublingual 0.4 mg SUBLINGUAL Q5M PRN (Reason: cp) ranolazine [Ranexa] 1,000 mg tablet extended release 12 hr 1,000 mg PO BID clopidogrel 75 MG tablet 75 mg PO DAILY Referrals Follow up/Referrals: Ten Mendoza MD [Primary Care Provider] - See instructions Clinical Impressions Clinical Impression: Acute non-ST elevation myocardial infarction (NSTEMI), Acute hypokalemia Discharge ED Provider: Marcellus Davis Chest Pain HPI General Chief Complaint: Chest Pain Stated Complaint: Chest Pain Time Seen by Provider: 03/26/23 20:20 Mode of Arrival: Ambulatory Source of Information: Patient Limitations: No Limitations Description of Symptoms (Recalled from ER Triage Doc. by RN): pt c/o lt side chest that started 30 mins prior to arrival and taken 2 nitro sl prior to arrival History of Present Illness HPI narrative: 68 yo M who presents with acute onset of chest pain 30 minutes prior to arrival and taken 2 SL nitro prior to arrival. He has a hx of 5 NE with multiple stents and CABG. He sees [facility] cardiology. He states that it is left sided chest pain that is heavy and intermittently sharp and feels similar to his previous cardiac events. Denies diaphoresis and nausea. He states that he has otherwise been well and denies fever chills and body aches. MITALI Score for Non-Stemi Age of Patient: 60-69 years old Heart Rate: 90-109 bpm Systolic Blood Pressure: 200 mmhg or higher Serum Creatinine: 0.80-1.19 mg/dl CHF Kill[place] Class: I-No CHF Other Risk Factors: ST Segment Deviation Non-Stemi Risk Score: 108 Related Data Home Medications Medication Instructions Recorded Confirmed aspirin 81 mg tablet,delayed 81 mg PO DAILY [facility] 12/28/17 07/21/22 release (Adult Low Dose Aspirin) hydrochlorothiazide 25 mg tablet 25 mg PO DAILY htn 12/28/17 07/21/22 isosorbide mononitrate 120 mg 120 mg PO DAILY bp 12/28/17 07/21/22 tablet,extended release 24 hr metoprolol succinate 50 mg 50 mg PO DAILY bp 12/28/17 07/21/22 tablet,extended release 24 hr nitroglycerin 0.4 mg sublingual 0.4 mg sublingual Q5M PRN cp 12/28/17 07/21/22 tablet (Nitrostat) pravastatin 20 mg tablet 20 mg PO QHS lipids 12/28/17 07/21/22 ranolazine 1,000 mg 1,000 mg PO BID Heart failure 12/28/17 07/21/22 tablet,extended release,12 hr (Ranexa) clopidogrel 75 mg tablet 75 mg PO DAILY heart healthy 05/13/21 07/21/22 Allergies Allergy/AdvReac Type Severity Reaction Status Date / Time morphine Allergy Intermediate HIVES,SWEAT Verified 07/21/22 10:29 [facility] Disclaimer: The information contained in this section may have been updated after the patient was seen, as this information can be updated by other users. 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
--- NOTE | 2023-03-27 02:51 | PC.NURSE ---
rounded on pt & emptied urinal (350ml). Potassium infusion is complete. Also obtained 3rd troponin at this time.
[2023-03-27 03:11] LABS: Troponin I 0.11 ng/ml (0.00-0.034)
--- NOTE | 2023-03-27 03:44 | PC.NURSE ---
collecting pt's 6hr PTT to dose heparin infusion
--- NOTE | 2023-03-27 04:24 | PC.NURSE ---
Called [facility] for a bed update and spoke with Fanny, she advised they still did not have any beds available and after speaking with the retail warehouse supervisor they could try to get the pt into the [facility], but that would not be until [phone]
[2023-03-27 04:28] LABS: PTT Heparin (inpatient only) 48.1 Seconds (23.6-34.0)
--- NOTE | 2023-03-27 04:53 | PC.NURSE ---
spoke with [facility], heparin drip increased to 1150 units/hr and a 3000 units bolus per infusion protocol
--- NOTE | 2023-03-27 04:57 | PC.NURSE ---
Pt is accepted to main ER. Called to give report, s/w Maris SWEENEY
== END 2023-03-27 05:22 | disposition short-term general hospital (02) ==
PROVIDERS: Emergency Provider Student in an Organized Health Care Education/Training Program; PCP Internal Medicine Adolescent Medicine
DX: I21.4 Non-ST elevation (NSTEMI) myocardial infarction (principal); E87.6 Hypokalemia
CPT/HCPCS: 71046; 80048; 80076; 81001; 84145; 84484; 85025; 85610; 85730; 86140; 93005; 96361; 96374; 96375; 96376; 99285; 99291; C9803; U0003; U0005

== ENCOUNTER 2023-12-01 01:20 | Inpatient (IN) | payer BC, MEDICARE, SELFPAY ==
[2023-12-01] VITALS (21 sets, daily range): BP systolic 102–166; BP diastolic 58–104; PULSE 63–800; RESP 10–20; TEMP 36.4–36.6; O2SAT 90–97; BMI 28.1; BMI 27.7; BMI 27.6
--- NOTE | 2023-12-01 01:18 | ECG_ITS ---
APPROVED REPORT Exam: Resting ECG HR:87 bpm ECG Measurements Heart Rate 87 AXES ME 232 P 71 QRSd 153 QRS 43 QT 425 T 53 QTc 469 Conclusion SINUS RHYTHM WITH FIRST DEGREE AV BLOCK INDETERMINATE AXIS RIGHT BUNDLE BRANCH BLOCK [120+ ms QRS DURATION, UPRIGHT V1, 40+ ms S IN I/aVL/V4/V5/V6] INFERIOR MYOCARDIAL INFARCTION , PROBABLY OLD [40+ ms Q WAVE AND/OR ST/T ABNORMALITY IN II/aVF] ST DEPRESSION, CONSIDER SUBENDOCARDIAL INJURY [0.1+ mV ST DEPRESSION] ABNORMAL ECG UNCONFIRMED REPORT Electronically signed by : Ten Mendoza MD 12/02/2023 10:09:22
--- NOTE | 2023-12-01 01:22 | XR_ITS ---
PROCEDURE INFORMATION: Exam: XR Chest Exam date and time: 12/01/2023 1:31 AM Age: 68 years old Clinical indication: Pain; Chest pressure; Additional info: Chest pain TECHNIQUE: Imaging protocol: Radiologic exam of the chest. Views: 1 view. COMPARISON: CR XR CHEST 2V 03/26/2023 8:23 PM FINDINGS: Lungs: Mild bibasilar atelectasis. No acute appearing consolidation. Pleural spaces: No pleural effusion. No pneumothorax. Heart/Mediastinum: No acute findings or cardiomegaly. Vasculature: Tortuous aorta. Bones/joints: Status post sternotomy. IMPRESSION: No acute cardiopulmonary findings.
[2023-12-01] MEDS: ASPIRIN 81MG CHEWABLE TABLET 324 MG PO (01:28)
--- NOTE | 2023-12-01 01:32 | ED_ITS ---
Discharge Plan Disposition Patient Disposition: Admitted Condition: Good Clinical Impressions Clinical Impression: Acute non-ST elevation myocardial infarction (NSTEMI) Discharge ED Provider: Fanny Gibson HPI General Chief Complaint: Chest Pain Stated Complaint: chest pain x2 days Time Seen by Provider: 12/01/23 01:22 Mode of Arrival: Ambulatory Source of Information: Patient Limitations: No Limitations Description of Symptoms (Recalled from ER Triage Doc. by RN): Patient states that he has been having chest pain since early this week and went to Dr Mcgoawn[facility] of[facility] on Monday and they were making an appointment for a cath. History of Present Illness HPI narrative: This patient is a 68-year-old male presenting to the emergency department for evaluation with concern for chest pain. Patient has extensive history of CAD status post CABG, hypertension, hyperlipidemia, right bundle branch block, and CHF. He states that the pain has been occurring daily for quite some time, but has been getting worse over the past week. He is taking nitroglycerin daily with no relief. He had approximately 4 sublingual nitroglycerin prior to arrival here tonight. He continues to have 7 out of 10 substernal aching pain that is nonradiating. Nothing seems make it better or worse. He was seen in cardiology clinic on 11/29/2023 for the pain. They plan to do a left heart cath and echocardiogram given the patient is already maxed on antianginals according to medical record review. Patient's pain became much worse tonight, prompting her to present to the ED as opposed to waiting for outpatient scheduled testing. Related Data Home Medications Medication Instructions Recorded Confirmed aspirin 81 mg tablet,delayed 81 mg PO DAILY heart health 12/28/17 12/01/23 release (Adult Low Dose Aspirin) hydrochlorothiazide 25 mg tablet 25 mg PO DAILY htn 12/28/17 12/01/23 isosorbide mononitrate 120 mg 120 mg PO DAILY bp 12/28/17 12/01/23 tablet,extended release 24 hr nitroglycerin 0.4 mg sublingual 0.4 mg sublingual Q5M PRN cp 12/28/17 12/01/23 tablet (Nitrostat) pravastatin 20 mg tablet 20 mg PO QHS lipids 12/28/17 12/01/23 ranolazine 1,000 mg 1,000 mg PO BID Heart failure 12/28/17 12/01/23 tablet,extended release,12 hr (Ranexa) clopidogrel 75 mg tablet 75 mg PO DAILY heart healthy 05/13/21 12/01/23 dapagliflozin propanediol 10 mg 10 mg PO DAILY 11/29/23 12/01/23 tablet (Farxiga) sacubitril 24 mg-valsartan 26 mg 1 tab PO BID 11/29/23 12/01/23 tablet (Entresto) albuterol 90 mcg/actuation aerosol 90 mcg inhalation Q6H PRN Wheezing 12/01/23 12/01/23 inhaler carvedilol 12.5 mg tablet 12.5 mg PO BID 12/01/23 12/01/23 clonidine HCl 0.1 mg tablet 1 mg PO DAILY PRN Blood Pressure 12/01/23 12/01/23 potassium chloride 10 mEq 10 meq PO DAILY 12/01/23 12/01/23 capsule,extended release Allergies Allergy/AdvReac Type Severity Reaction Status Date / Time morphine Allergy Intermediate HIVES,SWEAT Verified 11/29/23 13:32 [facility] Disclaimer: The information contained in this section may have been updated after the patient was seen, as this information can be updated by other users. 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 current occupational exposures/hazards: No caffeine: Yes ROS Obtained: Yes All systems reviewed & no additional complaints except as documented Physical Exam General General appearance: alert and in no apparent distress Head Head exam: atraumatic and normocephalic Eye Eye exam: Present normal appearance, PERRL and EOMI ENT ENT exam: Present normal exam, normal oropharynx, mucous membranes moist and normal external ear exam Neck Neck exam: Present normal inspection, full ROM and trachea midline; Absent tenderness Chest Chest inspection: Present normal inspection and symmetric chest wall rise; Absent tenderness Respiratory Respiratory exam: Present normal lung sounds bilaterally; Absent respiratory distress, wheezes, stridor or accessory muscle use Cardiovascular Cardiovascular exam: Present regular rate and normal rhythm Abdominal Exam Abdominal exam: Present soft; Absent distention, tenderness or guarding Extremities Exam Extremities exam: Present normal inspection, full ROM and normal capillary refill; Absent tenderness or edema Back Exam Back exam: Present normal inspection and full ROM; Absent tenderness Neurological Exam Neurological exam: Present alert, oriented X3, CN II-XII intact and normal gait; Absent motor sensory deficit Psychiatric Psychiatric exam: Present normal affect and normal mood Skin Skin exam: Present warm and dry HEART Score HEART Score HEART Score assessment performed?: Yes History (anamnesis): Highly suspicious ECG: Non-specific disturbance Age: >65 years Risk factors: Atherosclerosis history Troponin: > 3x normal limit HEART Score: 9 Critical Care Critical Care Time Critical Care Time: No Medical Decision Making Medical Records Medical records reviewed: Yes I reviewed the patient's medical records. Justin Inquiry Pt receiving controlled substance: No Vital Signs Vital Signs: 12/01/23 01:21 12/01/23 02:29 12/01/23 03:01 Temperature 97.6 F Temperature Source Oral Pulse Rate 68 68 Pulse Rate [Radial] 98 H Respiratory Rate 20 14 14 Blood Pressure 126/74 120/75 Blood Pressure [Right Arm] 166/104 H Blood Pressure Mean [Right Arm] 124 Blood Pressure Source Automatic Cuff Blood Pressure Source [Right Arm] Automatic Cuff Blood Pressure Position Sitting Supine Blood Pressure Position [Right Arm] Supine 02 Sat by Pulse Oximetry 93 L 92 L 90 L Oxygen Delivery Method Room Air Room Air Room Air 12/01/23 03:56 12/01/23 04:47 Temperature 97.5 F L Temperature Source Oral Pulse Rate 67 63 Pulse Rate [Radial] Respiratory Rate 10 L 11 L Blood Pressure 108/69 L 106/67 L Blood Pressure [Right Arm] Blood Pressure Mean [Right Arm] Blood Pressure Source Automatic Cuff Blood Pressure Source [Right Arm] Blood Pressure Position Supine Sitting Blood Pressure Position [Right Arm] 02 Sat by Pulse Oximetry 90 L Oxygen Delivery Method Room Air Room Air Lab Data Labs: Lab Results 12/01/23 01:45: WBC 6.7, RBC 4.36 L, Hgb 13.8 L, Hct 40.8 L, MCV 93.6, MCH 31.7 H, MCHC 33.9, RDW 14.3, Plt Count 215, MPV 8.1, Neut % (Auto) 66.5, Lymph % (Auto) 23.5, Otoe % (Auto) 6.1, Eos % (Auto) 3.5, Baso % (Auto) 0.4, Neut # (Auto) 4.4, Lymph # (Auto) 1.6, Otoe # (Auto) 0.4, Eos # (Auto) 0.2, Baso # (Auto) 0.0 12/01/23 02:01: Sodium 137, Potassium 3.2 L, Chloride 102, Carbon Dioxide 26, Anion Gap 12.2, BUN 25 H, Creatinine 1.10, Estimated Creat Clear 73, Estimated GFR 66, Est GFR ( Amer) 80, Glucose 136 H, Calcium 8.6, Total Bilirubin 0.5, AST 31, ALT 20, Alkaline Phosphatase 79, Troponin I 0.41 H, NT-Pro-B Natriuret Pep 285 H, Total Protein 6.8, Albumin 3.7, Globulin 3.1, Albumin/Globulin Ratio 1.2, TSH 3.69, Thyroxine (T4) 8.3 12/01/23 01:45 12/01/23 02:01 Response Orders (Tests/Meds): ED MEDICATIONS Generic Name Dose Route Start Last Admin Trade Name Freq PRN Reason Stop Dose Admin Acetaminophen 650 mg 12/01/23 04:36 Acetaminophen 325mg Tab PO 12/31/23 04:35 Q4HP PRN Fever or Mild Pain (1-3) Ondansetron HCl 4 mg 12/01/23 04:36 Ondansetron 4mg/2ml Vial IV 12/31/23 04:35 Q8HP PRN Nausea Pantoprazole Sodium 40 mg 12/01/23 09:00 Pantoprazole 40mg Tablet PO 12/31/23 08:59 DAILY JENELLE Sodium Chloride 10 ml 12/01/23 02:38 12/01/23 02:39 Sodium Chloride 0.9% 10ml Syr (Rad Only) IV 12/31/23 02:37 10 ml NEEDED PRN Administration Maintain IV Site Discontinued Medications Generic Name Dose Route Start Last Admin Trade Name Freq PRN Reason Stop Dose Admin Aspirin 324 mg 12/01/23 01:23 12/01/23 01:28 Aspirin 81mg Chewable Tablet PO 12/01/23 01:24 324 mg ONCE ONE Administration Hydromorphone HCl 0.5 mg 12/01/23 01:27 12/01/23 01:51 Hydromorphone 2mg/Ml Syringe IV 12/01/23 01:28 0.5 mg ONCE ONE Administration Iopamidol 75 ml 12/01/23 02:38 12/01/23 02:39 Iopamidol-370 (76%);100ml Bottle IV 12/01/23 02:39 75 ml ONCE ONE Administration Ondansetron HCl 4 mg 12/01/23 01:26 12/01/23 01:52 Ondansetron 4mg/2ml Vial IV 12/01/23 01:27 4 mg ONCE ONE Administration ORDERS Category Date Time Status CT angio chest PE protocol Stat Cat Scan 12/01/23 02:08 Taken Cardiology Consult [Consult to Cardiology] [CONS] Cons 12/01/23 04:36 Active Routine XR chest portable Stat Exams 12/01/23 01:22 Taken Brain Natriuretic Peptide Stat Lab 12/01/23 02:01 Completed Complete Blood Count Auto Diff AMLAB Lab 12/01/23 06:00 Ordered Complete Blood Count Auto Diff Stat Lab 12/01/23 01:45 Completed Comprehensive Metabolic Panel Routine Lab 12/01/23 04:36 Ordered Comprehensive Metabolic Panel Stat Lab 12/01/23 02:01 Completed Magnesium AMLAB Lab 12/01/23 06:00 Ordered T4 (Thyroxine) Stat Lab 12/01/23 02:01 Completed Thyroid Stimulating Hormone Stat Lab 12/01/23 02:01 Completed Troponin I Q3H Lab 12/01/23 04:45 Received Troponin I Q3H Lab 12/01/23 07:30 Ordered Troponin I Stat Lab 12/01/23 02:01 Completed ECG initial Besson Routine Y 12/01/23 01:18 Completed ECG Data Tracing #1: Attestation: I reviewed this ECG and interpreted as documented below: ECG Narrative: Sinus rhythm with a first-degree AV block with a ventricular rate of 87 bpm MN interval 232 ms. Right bundle branch block noted. Q waves as well as mild ST depression noted, which were present on prior EKG on medical record review. No significant changes noted from prior EKG. ECG initial impression date: 12/01/23 ECG initial impression time: 01:23 MDM Narrative Medical Decision Narrative: In summary, this patient is a 68-year-old male presenting to the Emergency Department for evaluation of chest pain. Differential diagnoses considered include but are not limited to ACS, unstable angina, GERD, costochondritis, pleuritis. Ruling out the most morbid conditions drove assessment. It should be noted patient's history includes CAD, hypertension, hyperlipidemia, right bundle branch block which may or may not be at goal therapy. This complicates all aspects of care by increasing patient's risk for morbidity. I reviewed patient's past medical records and noted his recent evaluation 2 days ago by cardiology as per HPI and plan for left heart cath and echocardiogram. On exam, the patient is in no acute distress. He is hypertensive despite taking 4 nitroglycerin prior to arrival. Otherwise, vitals are reassuring. Cardiopulmonary exam is reassuring. Workup included lab evaluation including CBC, CMP, troponin, TSH, T4, and BNP, as well as CT PE, chest x-ray and EKG. EKG does not demonstrate any significant changes from prior EKG. Patient was given IV Dilaudid and Zofran for symptomatic improvement of pain given his morphine allergy. He was given 324 mg of oral aspirin. Cardiac monitoring is ongoing at this time. I independently interpreted x-ray and CT scan prior to the radiologist read and noted no acute focal consolidation, no obvious large PE, and no other acute concerns. Please see their read for final interpretation. Labs were obtained that demonstrated elevated initial troponin with a troponin of 0.41. Workup is otherwise reassuring. On reassessment, patient had good improvement after administration of IV Dilaudid and Zofran. He is resting comfortably. Vitals are reassuring on cardiac telemetry, and his hypertension is improved. Given his elevated troponin and heart score of 9, I feel he benefit from admission for continued monitoring, serial troponins, and cardiology evaluation. I called and had an interactive discussion with the hospitalist who graciously admitted the patient for further evaluation and management..
[2023-12-01] MEDS: HYDROMORPHONE 2MG/ML SYRINGE 0.5 MG IV (01:51)
[2023-12-01] MEDS: ONDANSETRON 4MG/2ML VIAL 4 MG IV (01:52)
[2023-12-01 01:54] LABS: Basophils % 0.4 % (0.1-2.0); Eosinophils # 0.2 K/mm3 (0.0-0.4); Eosinophils % 3.5 % (0.1-12.0); Hematocrit 40.8 % (42.0-52.0); Hemoglobin 13.8 g/dL (14.1-18.0); Lymphocytes # 1.6 K/mm3 (0.7-4.5); Lymphocytes % 23.5 % (10-50); Mean Corpuscular HGB Conc 33.9 g/dL (31.8-35.4); Mean Corpuscular Hemoglobin 31.7 pg (27.0-31.2); Mean Corpuscular Volume 93.6 fl (80-94); Mean Platelet Volume 8.1 fl (7.4-10.4); Monocytes # 0.4 K/mm3 (0.1-1.0); Monocytes % 6.1 % (1.7-9.3); Neutrophils # 4.4 K/mm3 (1.8-7.8); Neutrophils % 66.5 % (37.0-80.0); Platelet Count 215 K/mm3 (142-424); Red Blood Count 4.36 M/mm3 (4.60-6.20); Red Cell Distribution Width 14.3 % (11.5-17.5); White Blood Count 6.7 K/mm3 (4.8-10.8)
--- NOTE | 2023-12-01 02:08 | CT_ITS ---
PROCEDURE INFORMATION: Exam: CTA Chest With Contrast Exam date and time: 12/01/2023 2:29 AM Age: 68 years old Clinical indication: Pain; Chest pressure; Additional info: Chest pain TECHNIQUE: Imaging protocol: Computed tomographic angiography of the chest with contrast. Exam focused on the arteries. 3D rendering (Not supervised by radiologist): MIP and/or 3D reconstructed images were created by the technologist. Radiation optimization: All CT scans at this facility use at least one of these dose optimization techniques: automated exposure control; mA and/or kV adjustment per patient size (includes targeted exams where dose is matched to clinical indication); or iterative reconstruction. Contrast material: ISOVUE; Contrast volume: 75 ml; Contrast route: INTRAVENOUS (IV); COMPARISON: CR XR CHEST PORTABLE 12/01/2023 1:31 AM FINDINGS: Pulmonary arteries: No pulmonary emboli. Aorta: No aortic aneurysm. No aortic dissection. Lungs: Mild dependent atelectasis in the bilateral lower lobes. No acute appearing airspace disease. Pleural spaces: Calcified pleural plaques on the left. Heart: No cardiomegaly. No pericardial effusion. Lymph nodes: No pathologically enlarged lymph nodes. Diaphragm: Small hiatal hernia. Gallbladder and bile ducts: Cholelithiasis. Bones/joints: Status post sternotomy. Soft tissues: No acute findings. IMPRESSION: 1. No pulmonary embolus. 2. No acute appearing airspace disease. 3. Cholelithiasis. 4. Small hiatal hernia. 5. Calcified pleural plaques on the left.
[2023-12-01 02:12] LABS: Chloride 102 mmol/L (98-107); Potassium 3.2 mmoL/L (3.5-5.1); Sodium 137 mmol/L (136-145)
[2023-12-01 02:15] LABS: Alanine Aminotransferase 20 U/L (12-78); Albumin Level 3.7 g/dl (3.5-5.0); Albumin/Globulin Ratio 1.2 (1.1-1.8); Alkaline Phosphatase 79 U/L (38-126); Anion Gap 12.2 mEq/L (5-15); Aspartate Amino Transferase 31 U/L (17-59); Bilirubin,Total 0.5 mg/dl (0.2-1.3); Blood Urea Nitrogen 25 mg/dl (9-20); Carbon Dioxide 26 mmol/L (22.0-30.0); Creatinine Clearance Estimated 73 mL/min (50-200); Estimated Glomerular Filt Rate 66 ml/min (>60); GFR (African American) 80 ML/MIN (>60); Globulin 3.1 g/dL (1.3-3.2); Total Protein,Serum 6.8 g/dl (6.3-8.2)
[2023-12-01 02:16] LABS: Calcium 8.6 mg/dl (8.4-10.2); Glucose 136 mg/dl (74-100)
[2023-12-01 02:25] LABS: NT Pro Brain Natriuretic Pep. 285 pg/mL (0-125)
[2023-12-01 02:30] LABS: Troponin I 0.41 ng/ml (0.00-0.034)
[2023-12-01 02:33] LABS: T4 (Thyroxine) 8.3 ug/dl (5.53-11.0)
[2023-12-01] MEDS: SODIUM CHLORIDE 0.9% 10ML SYR (RAD ONLY) 10 ML IV (02:39)
[2023-12-01] MEDS: IOPAMIDOL-370 (76%);100ML BOTTLE 75 ML IV (02:39)
[2023-12-01 02:46] LABS: Thyroid Stimulating Hormone 3.69 uIU/mL (0.465-4.68)
--- NOTE | 2023-12-01 04:32 | PC.NURSE ---
called house visitor for admission to hospitalist for NSTEMI
--- NOTE | 2023-12-01 04:38 | P.HP_ITS ---
History of Present Illness *Admission Date: 12/01/23 *Reason for visit:: CP *History of present illness: This is a 68-year-old male xtensive history of CAD status post CABGx5, hypertension, hyperlipidemia, right bundle branch block, and CHF presenting to the emergency department for evaluation of chest pain. Patient stated that the pain has been occurring daily for quite some time, but has been getting worse over the past week. He is taking nitroglycerin daily with no relief. He had approximately 4 sublingual nitroglycerin prior to arrival here tonight. He continues to have 7 out of 10 substernal aching pain that is nonradiating. Nothing seems make it better or worse. He was seen in cardiology clinic on 11/29/2023 for the pain. They plan to do a left heart cath and echocardiogram given the patient is already maxed on antianginals according to medical record review. Patient's pain became much worse tonight, prompting her to present to the ED as opposed to waiting for outpatient scheduled testing. Admitted for further work up and treatment. [facility] Disclaimer: The information contained in this section may have been updated after the patient was seen, as this information can be updated by other users. 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 current occupational exposures/hazards: No caffeine: Yes Review of Systems Review of Systems Review of systems:: pertinent systems reviewed and negative unless documented below Meds Home Medications and Allergies Home Medications Medication Instructions Recorded Confirmed Type aspirin 81 mg tablet,delayed 81 mg PO DAILY 12/28/17 12/01/23 History release (Adult Low Dose Aspirin) hydrochlorothiazide 25 mg tablet 25 mg PO DAILY 12/28/17 12/01/23 History nitroglycerin 0.4 mg sublingual 0.4 mg sublingual Q5M PRN Chest 12/28/17 12/01/23 History tablet (Nitrostat) Pain ranolazine 1,000 mg 1,000 mg PO BID 12/28/17 12/01/23 History tablet,extended release,12 hr (Ranexa) clopidogrel 75 mg tablet 75 mg PO DAILY 05/13/21 12/01/23 History dapagliflozin propanediol 10 mg 10 mg PO DAILY 11/29/23 12/01/23 History tablet (Farxiga) sacubitril 24 mg-valsartan 26 mg 1 tab PO BID 11/29/23 12/01/23 History tablet (Entresto) albuterol 90 mcg/actuation aerosol 90 mcg inhalation Q6H PRN Wheezing 12/01/23 12/01/23 History inhaler carvedilol 12.5 mg tablet 12.5 mg PO BID 12/01/23 12/01/23 History clonidine HCl 0.1 mg tablet 1 mg PO DAILY PRN Blood Pressure 12/01/23 12/01/23 History isosorbide mononitrate 60 mg 120 mg PO HS 12/01/23 12/01/23 History tablet,extended release 24 hr potassium chloride 10 mEq 10 meq PO DAILY 12/01/23 12/01/23 History capsule,extended release rosuvastatin 20 mg tablet 20 mg PO DAILY 12/01/23 12/01/23 History New Prescriptions to Start Prescriptions: Allergies Allergy/AdvReac Type Severity Reaction Status Date / Time morphine Allergy Intermediate HIVES,SWEAT Verified 11/29/23 13:32 ING Exam Data for Last 24 hours Vital signs and Labs for Last 24 Hours: Temp Pulse Resp BP Pulse Ox O2 Del Method 97.6 F 67 10 L 108/69 L 90 L Room Air 12/01/23 01:21 12/01/23 03:56 12/01/23 03:56 12/01/23 03:56 12/01/23 03:56 12/01/23 03:56 Laboratory Results - last 24 hr 12/01/23 01:45: WBC 6.7, RBC 4.36 L, Hgb 13.8 L, Hct 40.8 L, MCV 93.6, MCH 31.7 H, MCHC 33.9, RDW 14.3, Plt Count 215, MPV 8.1, Neut % (Auto) 66.5, Lymph % (Auto) 23.5, [place] % (Auto) 6.1, Eos % (Auto) 3.5, Baso % (Auto) 0.4, Neut # (Auto) 4.4, Lymph # (Auto) 1.6, [place] # (Auto) 0.4, Eos # (Auto) 0.2, Baso # (Auto) 0.0 12/01/23 02:01: Sodium 137, Potassium 3.2 L, Chloride 102, Carbon Dioxide 26, Anion Gap 12.2, BUN 25 H, Creatinine 1.10, Estimated Creat Clear 73, Estimated GFR 66, Est GFR ( Amer) 80, Glucose 136 H, Calcium 8.6, Total Bilirubin 0.5, AST 31, ALT 20, Alkaline Phosphatase 79, Troponin I 0.41 H, NT-Pro-B Natriuret Pep 285 H, Total Protein 6.8, Albumin 3.7, Globulin 3.1, Albumin/Globulin Ratio 1.2, TSH 3.69, Thyroxine (T4) 8.3 I & O for Last 24 hours: Intake & Output 11/28/23 11/29/23 11/30/23 12/01/23 23:59 23:59 23:59 23:59 Weight 81.647 kg Constitutional Constitutional: mild distress and cooperative *Routine HEENT Exam Head: Present normocephalic and atraumatic Eye: Present EOMI, PERRL and normal accommodation ENT: Present mucous membranes moist *Routine Neck Exam Neck: Present supple, full ROM and trachea midline *Routine Respiratory Exam Respiratory: Present normal respiratory effort, able to speak in complete sentences and symmetric chest movement; Absent respiratory distress *Routine Cardiovascular Exam Cardiovascular: Present RRR, Normal S1 and Normal S2 *Routine Abdominal Exam Abdominal: Present soft and normoactive bowel sounds; Absent organomegaly *Routine Rectal Exam Rectal:: deferred *Routine Genitalia Exam Genitalia:: deferred *Routine Extremities Exam Extremities: Present full ROM and pulses intact; Absent cyanosis, clubbing or edema *Routine Skin Exam Skin: Present intact, dry and warm *Routine Neurological Exam Neurological: Present alert, oriented X3, normal reflexes, moving all extremities and normal speech Routine Psychiatric Exam Psychiatric: Present normal thought process, cooperative and good judgment H&P: Result Imaging and Cardiology CT scan - chest: Status: image reviewed by me, Preliminary report and final report EKG: Status: image reviewed by me and Preliminary report Chest x-ray: Status: image reviewed by me, Preliminary report and final report Assessment and Plan *Assessment and plan (1) Acute non-ST elevation myocardial infarction (NSTEMI): Status: Acute Category: Medical Code(s): I21.4 - Non-ST elevation (NSTEMI) myocardial infarction (2) Acute hypokalemia: Status: Acute Category: Medical Code(s): E87.6 - Hypokalemia (3) CHF (congestive heart failure): Status: Acute Qualifiers: Heart failure chronicity: unspecified Heart failure type: unspecified Qualified Code(s): I50.9 - Heart failure, unspecified Category: Medical Code(s): I50.9 - Heart failure, unspecified (4) Hyperlipidemia: Status: Acute Qualifiers: Hyperlipidemia type: mixed hyperlipidemia Qualified Code(s): E78.2 - Mixed hyperlipidemia Category: Medical Code(s): E78.5 - Hyperlipidemia, unspecified (5) Hypertension: Status: Acute Qualifiers: Hypertension type: primary hypertension Qualified Code(s): I10 - Essential (primary) hypertension Category: Medical Code(s): I10 - Essential (primary) hypertension (6) Coronary artery disease: Status: Acute Qualifiers: Associated angina: with other forms of angina Coronary Disease- Associated Artery/Lesion type: [place] artery [place] vs. transplanted heart: [place] heart Qualified Code(s): I25.118 - Atherosclerotic heart disease of [place] coronary artery with other forms of angina pectoris Category: Medical Code(s): I25.10 - Atherosclerotic heart disease of [place] coronary artery without angina pectoris (7) Hx of CABG: Status: Acute Category: Surgical Code(s): Z95.1 - Presence of aortocoronary bypass graft Plan 68-year-old male xtensive history of CAD status post CABGx5, hypertension, hyperlipidemia, right bundle branch block, and CHF presenting to the emergency department for evaluation of chest pain. Patient stated that the pain has been occurring daily for quite some time, but has been getting worse over the past week. On arrival patient presented with intermittent chest pain, hemodynamically stable, underwent CTA of the chest to rule out PE. There is low concern for acute processes. Troponin was elevated. Findings discussed with the ER doctor for admission. Plan as follow: -Non-STEMI with elevated troponin: Admit patient for cardiac telemetry. Cardiology consult. Keep n.p.o. for possible cardiac intervention. Monitor for chest. Vital signs per unit Nitroglycerin sublingual as needed for pain Morphine for severe pain Serial troponin EKG reviewed -Hypokalemia: Patient 10 meq twice daily. Increase to 20 to maximize cardiac function Watch and monitor for electrolyte imbalance Repeat CMP in the morning Monitor CBC Hyperlipidemia hypertension Coronary Artery Disease Status Post CABG x 5: Reconciled and reviewed home meds. Patient on Plavix, aspirin and Entresto Protonix for GI prophylaxis Full code Attending attestation Patient was seen and evaluated at the bedside myself, agree with DISTRIBUTION ACCOUNTING CLERK note.
--- NOTE | 2023-12-01 04:38 | PC.NURSE ---
tried to call report
--- NOTE | 2023-12-01 04:44 | PC.NURSE ---
report called to Lizette Ac
--- NOTE | 2023-12-01 04:49 | PC.NURSE ---
0441 received report from Giovanna RN/ED nurse. Patient is a 68 yo male. diagnosis NSTEMI.
[2023-12-01 05:17] LABS: Troponin I 0.75 ng/ml (0.00-0.034)
[2023-12-01 06:54] LABS: Basophils % 0.3 % (0.1-2.0); Eosinophils # 0.1 K/mm3 (0.0-0.4); Eosinophils % 1.8 % (0.1-12.0); Hematocrit 38.8 % (42.0-52.0); Hemoglobin 12.8 g/dL (14.1-18.0); Lymphocytes # 1.1 K/mm3 (0.7-4.5); Lymphocytes % 15.1 % (10-50); Mean Corpuscular HGB Conc 32.9 g/dL (31.8-35.4); Mean Corpuscular Hemoglobin 31.1 pg (27.0-31.2); Mean Corpuscular Volume 94.5 fl (80-94); Mean Platelet Volume 7.9 fl (7.4-10.4); Monocytes # 0.3 K/mm3 (0.1-1.0); Monocytes % 3.6 % (1.7-9.3); Neutrophils # 5.9 K/mm3 (1.8-7.8); Neutrophils % 79.3 % (37.0-80.0); Platelet Count 207 K/mm3 (142-424); Red Blood Count 4.11 M/mm3 (4.60-6.20); Red Cell Distribution Width 14.2 % (11.5-17.5); White Blood Count 7.4 K/mm3 (4.8-10.8)
[2023-12-01 07:16] LABS: Alanine Aminotransferase 20 U/L (12-78); Albumin Level 3.5 g/dl (3.5-5.0); Albumin/Globulin Ratio 1.3 (1.1-1.8); Alkaline Phosphatase 72 U/L (38-126); Anion Gap 10.7 mEq/L (5-15); Aspartate Amino Transferase 45 U/L (17-59); Bilirubin,Total 0.4 mg/dl (0.2-1.3); Blood Urea Nitrogen 23 mg/dl (9-20); Calcium 8.7 mg/dl (8.4-10.2); Carbon Dioxide 25 mmol/L (22.0-30.0); Chloride 103 mmol/L (98-107); Creatinine Clearance Estimated 72 mL/min (50-200); Estimated Glomerular Filt Rate 66 ml/min (>60); GFR (African American) 80 ML/MIN (>60); Globulin 2.8 g/dL (1.3-3.2); Glucose 116 mg/dl (74-100); Potassium 3.7 mmoL/L (3.5-5.1); Sodium 135 mmol/L (136-145); Total Protein,Serum 6.3 g/dl (6.3-8.2)
--- NOTE | 2023-12-01 07:40 | CA_ITS ---
APPROVED REPORT EXAM: Comprehensive 2D, Doppler, and color-flow Echocardiogram Laborer [place]: Danielle Tony, RCS, RVS Ht: 5 ft 6 in Wt: 176lbs BSA: 1.89 BP: 108/69 mmHg Indications: CHF, RBBB, CAD -cabgx5, NSTEMI, HTN, HLD 2D Dimensions Aortic Root 3.94 cm LA Volume 74.60 mL Left Atrium 4.60 cm LA Volume Index 39.225593 mL/m2 (M/F) 16-34 RVID Base (AP4) 3.35 cm (M/F) 2.5-4.1 EF AP4 47.70 % LVOT 2.09 cm (M/F) 1.5-2.5 GL Strain -13.0 % M-Mode Dimensions RVDd 2.63 cm (0.9-2.6) LVDd 6.03 cm (3.5-5.7) Ao Diam 4.33 cm (2.0-3.7) LVDs 4.42 cm (3.5-5.7) IVSd 1.19 cm (0.6-1.1) PWd 1.15 cm (0.6-1.1) EF (Teich) 51.30% EPSs 1.84 cm FS 26.70% EDV (Teich) 182.10 mL TAPSE 2.35 (<1.7) ESV (Teich) 88.60 mL LV Diastology E Decel Time 153 (160-240 msec) E/A Ratio 0.58 MED E' 4.4 (>= 7 cm/sec) MED A' 7.30 cm/s E'/MED E' Ratio 12.36 (<= 14) LAT E' 6.3 (>= 10 cm/sec) LAT A' 12.00 cm/s E/LAT E' Ratio 8.63 (<= 14) Aortic Valve LVOT Max 75.0 (70-110 cm/s) ROXIE Index 1.30 cm2/m2 LVOT VTI 15.71 cm AoV Peak Jona. 113.0 (50-130 cm/s) AO Mean GR. 2.40 (<5 mmHg) AO VTI 22.0 (18-25 cm) ROXIE (VTI) 2.45 (2.5-4.5 cm2) Mitral Valve MV E Max Jona. 54.0 (40-130 cm/s) MV A Velocity 93.0 (40-130 cm/s) E/A Ratio 0.58 MV Decel. Time 153 (160-240 ms) Tricuspid Valve TR P. Velocity 280.00 cm/s RAP Estimate 10.00 mmHg RVSP 41.40 mmHg Left Ventricle The left ventricle is normal size. The left ventricular systolic function is low-normal There is normal left ventricular wall thickness. The septum is asynchronous. The left ventricular diastolic function is normal. LVEF is 50%. Right Ventricle The right ventricle is not well visualized. Atria Left atrium is mildly dilated. The right atrium is not well visualized. The interatrial septum is not well visualized. Aortic Valve The aortic valve leaflets are mildly thickened. There is no aortic valvular stenosis. Mild aortic regurgitation. Mitral Valve The mitral valve leaflets are mildly thickened. No evidence of mitral valve stenosis. Mild mitral regurgitation. Tricuspid Valve The tricuspid valve leaflets are thin and pliable. Mild tricuspid regurgitation. RVSP is 30-35 mmHg. Pulmonic Valve The pulmonary valve is normal in structure. Mild pulmonic regurgitation. Great Vessels The aortic root is mildly dilated, measuring 4.0 cm in diameter. The ascending aorta is not well visualized. The IVC is not well visualized. Pericardium There is no pericardial effusion. Other Information Study Quality: Technically Difficult Conclusion Technically difficult study due to poor accoustic windows. Low-normal LV systolic function (LVEF 50%). Asynchronous septum. RV not well visualized. Mild AI, mild MR, mild TR, mild PI. RVSP 30-35 mmHg. Mildly dilated aortic root (diameter 4.0 cm). Electronically signed by : Lori Meraz MD 12/03/2023 16:06:22
[2023-12-01 07:54] LABS: Troponin I 1.67 ng/ml (0.00-0.034)
[2023-12-01] MEDS: CLOPIDOGREL 75MG TAB 75 MG PO (09:23)
[2023-12-01] MEDS: DAPAGLIFLOZIN PROPANEDIOL 10 MG TABLET PO (09:23)
[2023-12-01] MEDS: hydroCHLOROthiazide 25MG TABLET 25 MG PO (09:23)
[2023-12-01] MEDS: PANTOPRAZOLE 40MG TABLET 40 MG PO (09:23)
[2023-12-01] MEDS: SACUBITRIL/VALSARTAN 24-26MG TABLET 1 EACH PO ×2 (09:23→21:53)
[2023-12-01] MEDS: RANOLAZINE 500MG ER TABLET 1000 MG PO ×2 (09:23→21:54)
[2023-12-01] MEDS: ASPIRIN EC 81MG TABLET 81 MG PO (09:23)
[2023-12-01] MEDS: CARVEDILOL 12.5MG TABLET 12.5 MG PO ×2 (09:23→21:53)
[2023-12-01] MEDS: POTASSIUM CHLORIDE 10MEQ CAPSULE.ER 20 MEQ PO (09:24)
--- NOTE | 2023-12-01 09:30 | P.CONCA_ITS ---
History of Present Illness History of Present Illness Consult date: 12/01/23 Requesting physician: Diana Meza Consult reason: chest pain Chief complaint: chest pain, NSTEMI Additional Medical History:: 1. CAD with history of 5 vessel bypass in 1996 A. Multiple stents since then with the last one approximately 2017 in [place], [place] 2. Hypertension 3. Hyperlipidemia History of present illness: This is a 68-year-old male xtensive history of CAD status post CABGx5, hypertension, hyperlipidemia, right bundle branch block, and CHF presenting to the emergency department for evaluation of chest pain. Patient stated that the pain has been occurring daily for quite some time, but has been getting worse over the past week. He is taking nitroglycerin daily with no relief. He had approximately 4 sublingual nitroglycerin prior to arrival here tonight. He continues to have 7 out of 10 substernal aching pain that is nonradiating. Nothing seems make it better or worse. He was seen in cardiology clinic on 11/29/2023 for the pain. They plan to do a left heart cath and echocardiogram given the patient is already maxed on antianginals according to medical record review. Patient's pain became much worse tonight, prompting her to present to the ED as opposed to waiting for outpatient scheduled testing. Admitted for further work up and treatment. THe above per Efrem Daugherty APRN for the hospitalist service Events above confirmed with patient. Currently asymptomatic. Troponins initially 0.41 then 0.75 now 1.67 EKG is sinus with first-degree AV block. Right bundle branch block with ST-T abnormalities concerning for inferior ME. [facility] Disclaimer: The information contained in this section may have been updated after the patient was seen, as this information can be updated by other users. 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 current occupational exposures/hazards: No caffeine: Yes Review of Systems Review of Systems Review of systems:: pertinent systems reviewed and negative unless documented below *Cardiovascular Cardiovascular: Reports chest pain and Reports dyspnea on exertion *Respiratory Respiratory: Reports dyspnea on exertion Exam Data for Last 24 hours Vital signs and Labs for Last 24 Hours: Temp Pulse Resp BP Pulse Ox O2 Del Method 97.7 F 71 18 114/74 94 L Room Air 12/01/23 08:00 12/01/23 08:00 12/01/23 08:00 12/01/23 08:00 12/01/23 08:00 12/01/23 08:00 Laboratory Results - last 24 hr 12/01/23 01:45: WBC 6.7, RBC 4.36 L, Hgb 13.8 L, Hct 40.8 L, MCV 93.6, MCH 31.7 H, MCHC 33.9, RDW 14.3, Plt Count 215, MPV 8.1, Neut % (Auto) 66.5, Lymph % (Auto) 23.5, [place] % (Auto) 6.1, Eos % (Auto) 3.5, Baso % (Auto) 0.4, Neut # (Auto) 4.4, Lymph # (Auto) 1.6, [place] # (Auto) 0.4, Eos # (Auto) 0.2, Baso # (Auto) 0.0 12/01/23 02:01: Sodium 137, Potassium 3.2 L, Chloride 102, Carbon Dioxide 26, Anion Gap 12.2, BUN 25 H, Creatinine 1.10, Estimated Creat Clear 73, Estimated GFR 66, Est GFR ( Amer) 80, Glucose 136 H, Calcium 8.6, Total Bilirubin 0.5, AST 31, ALT 20, Alkaline Phosphatase 79, Troponin I 0.41 H, NT-Pro-B Natriuret Pep 285 H, Total Protein 6.8, Albumin 3.7, Globulin 3.1, Albumin/Globulin Ratio 1.2, TSH 3.69, Thyroxine (T4) 8.3 12/01/23 04:45: Troponin I 0.75 H 12/01/23 06:13: WBC 7.4, RBC 4.11 L, Hgb 12.8 L, Hct 38.8 L, MCV 94.5 H, MCH 31.1, MCHC 32.9, RDW 14.2, Plt Count 207, MPV 7.9, Neut % (Auto) 79.3, Lymph % (Auto) 15.1, [place] % (Auto) 3.6, Eos % (Auto) 1.8, Baso % (Auto) 0.3, Neut # (Auto) 5.9, Lymph # (Auto) 1.1, [place] # (Auto) 0.3, Eos # (Auto) 0.1, Baso # (Auto) 0.0, Sodium 135 L, Potassium 3.7, Chloride 103, Carbon Dioxide 25, Anion Gap 10.7, BUN 23 H, Creatinine 1.10, Estimated Creat Clear 72, Estimated GFR 66, Est GFR ( Amer) 80, Glucose 116 H, Calcium 8.7, Magnesium 2.0, Total Bilirubin 0.4, AST 45 D, ALT 20, Alkaline Phosphatase 72, Troponin I 1.67 H, Total Protein 6.3, Albumin 3.5, Globulin 2.8, Albumin/Globulin Ratio 1.3 I & O for Last 24 hours: Intake & Output 11/28/23 11/29/23 11/30/23 12/01/23 11:59 11:59 11:59 11:59 Intake Total 360 / 360 Output Total 0 / 0 Balance 360 / 360 Weight 176 lb 8 oz Constitutional Constitutional: no acute distress *Routine Respiratory Exam Respiratory: Present CTA bilaterally *Routine Cardiovascular Exam Cardiovascular: Present RRR; Absent murmur, gallop or rubs *Routine Extremities Exam Extremities: Absent edema Meds Home Medications and Allergies Home Medications Medication Instructions Recorded Confirmed Type aspirin 81 mg tablet,delayed 81 mg PO DAILY 12/28/17 12/01/23 History release (Adult Low Dose Aspirin) hydrochlorothiazide 25 mg tablet 25 mg PO DAILY 12/28/17 12/01/23 History nitroglycerin 0.4 mg sublingual 0.4 mg sublingual Q5M PRN Chest 12/28/17 12/01/23 History tablet (Nitrostat) Pain ranolazine 1,000 mg 1,000 mg PO BID 12/28/17 12/01/23 History tablet,extended release,12 hr (Ranexa) clopidogrel 75 mg tablet 75 mg PO DAILY 05/13/21 12/01/23 History dapagliflozin propanediol 10 mg 10 mg PO DAILY 11/29/23 12/01/23 History tablet (Farxiga) sacubitril 24 mg-valsartan 26 mg 1 tab PO BID 11/29/23 12/01/23 History tablet (Entresto) albuterol 90 mcg/actuation aerosol 90 mcg inhalation Q6H PRN Wheezing 12/01/23 12/01/23 History inhaler carvedilol 12.5 mg tablet 12.5 mg PO BID 12/01/23 12/01/23 History clonidine HCl 0.1 mg tablet 1 mg PO DAILY PRN Blood Pressure 12/01/23 12/01/23 History isosorbide mononitrate 60 mg 120 mg PO HS 12/01/23 12/01/23 History tablet,extended release 24 hr potassium chloride 10 mEq 10 meq PO DAILY 12/01/23 12/01/23 History capsule,extended release rosuvastatin 20 mg tablet 20 mg PO DAILY 12/01/23 12/01/23 History New Prescriptions to Start Prescriptions: Allergies Allergy/AdvReac Type Severity Reaction Status Date / Time morphine Allergy Intermediate HIVES,SWEAT Verified 11/29/23 13:32 ING Assessment and Plan *Assessment and plan (1) Acute non-ST elevation myocardial infarction (NSTEMI): Status: Acute Category: Medical Code(s): I21.4 - Non-ST elevation (NSTEMI) myocardial infarction (2) Hypertension: Status: Acute Qualifiers: Hypertension type: primary hypertension Qualified Code(s): I10 - Essential (primary) hypertension Category: Medical Code(s): I10 - Essential (primary) hypertension (3) Hyperlipidemia: Status: Acute Qualifiers: Hyperlipidemia type: mixed hyperlipidemia Qualified Code(s): E78.2 - Mixed hyperlipidemia Category: Medical Code(s): E78.5 - Hyperlipidemia, unspecified (4) RBBB: Status: Acute Category: Medical Code(s): I45.10 - Unspecified right bundle-branch block (5) Hx of CABG: Status: Acute Category: Surgical Code(s): Z95.1 - Presence of aortocoronary bypass graft Plan 1. Non-STEMI in patient with known CABG and multivessel stenting in the past -Left heart catheterization today -Continue aspirin and Plavix 2. Hypertension -Continue carvedilol, HCTZ, isosorbide, Entresto and ranolazine 3. Hyperlipidemia -Continue statin 4. Mild anemia with hemoglobin around 12 Check echocardiogram Left heart catheterization today [facility] results: ANGIOGRAPHIC RESULTS The left main artery Ostially occluded The right coronary artery Proximally occluded The MOE ventriculogram reveals Dilated ventricle inferior wall hypokinesis estimate ejection fraction 35 to 40% The left ventricular end-diastolic pressure 15 mmHg ARVIZU is patent to the LAD. Distal to the anastomosis the distal LAD has subtotal occlusion and supplies a small amount of myocardium apically. Saphenous vein graft to the right coronary artery has a proximal 70% stenosis and a mid vessel 70% stenosis. The right coronary is dominant Saphenous vein graft to the circumflex artery has a proximal concentric 90% stenosis followed by additional 60 and 70% stenosis followed by an eccentric 60 to 70% stenosis in the midportion of the graft. The lumen of the graft is equal in size to the combined caliber of the first and second obtuse marginal artery. The graft skips from the first obtuse marginal artery to the second obtuse marginal artery IMPRESSION Coronary disease as described above Successful stenting of the saphenous vein graft to the right coronary severe disease reduced to 0% with 2 noncontiguous drug-eluting stents Successful stenting of the ostial proximal saphenous vein graft supplying the first and second obtuse marginal artery. Critical disease reduced to 0% with 1 contiguous drug-eluting stent. Persistent 70% stenosis in the mid body of the large saphenous vein graft which supplies the first and second obtuse marginal artery Reduced ejection fraction Normal left ventricular end-diastolic pressure PLAN 1. Dual antiplatelet therapy 2. Cardiac rehabilitation 3. Avoidance of tobacco products 4. Risk factor modification 5. Standard therapy for ischemic heart disease 6. Standard therapy for systolic heart failure 7. LDL less than 55 to be achieved with high intensity statin Electronically signed by : Pancho Mcgowan MD 12/01/2023 14:17:09 Monitor overnight. If renal function stable then patient can be discharged home for early follow-up next week. Home medication recommendations: Aspirin 81 mg daily Clopidogrel 75 mg daily Carvedilol 12.5 mg twice daily Farxiga 10 mg daily HCTZ 25 mg daily Isosorbide mononitrate 120 mg daily Ranexa 1000 mg twice daily Entresto 24/ twice daily Potassium 20 mill equivalents daily Resume rosuvastatin 20 mg daily
--- NOTE | 2023-12-01 10:51 | IR_ITS ---
APPROVED REPORT Patient Location: Inpatient Surgical Lead: MARTY Dudley RT (R) PROCEDURES Left heart catheterization Left ventriculogram Selective coronary angiogram Left internal mammary angiography Selective engagement of saphenous vein graft circumflex artery Selective engagement of saphenous vein graft to the right coronary Drug-eluting stent deployment to the saphenous vein graft supplying the right coronary Drug-eluting stent deployment to the saphenous vein graft supplying the circumflex artery INDICATION Acute non-ST elevation myocardial infarction, Coronary artery disease, History of coronary bypass surgery Informed consent was obtained prior to the procedure. COMPLICATIONS None Estimated Blood Loss: Less than 10 mls TECHNIQUE One percent lidocaine used to anesthetize the right groin. The right femoral artery was accessed via the Seldinger technique and a 5 Latvian sheath was placed in the right femoral artery. A JL 4, JR4 catheter were used to perform left heart catheterization, left ventriculogram selective coronary angiography as well as selective engagement of the 2 vein grafts and the left internal mammary artery. A 5 Latvian sheath was exchanged for a 6 Latvian sheath and therapeutic heparin was administered given therapeutic ACT. A multipurpose guide catheter was placed in the saphenous vein graft supplying the right coronary artery followed by Choice PT extra-support wire. A 3.5 x 15 mm Adrian frontier stent was deployed in the mid saphenous vein graft and deployed at 24 kiley reducing the stenosis. An additional 3.5 x 22 mm Edgar frontier stent was placed in the ostial proximal segment of the saphenous vein graft and deployed at 24 kiley to reduce the ostial proximal stenosis. Following this an LCB guide catheter was placed in the saphenous vein graft to the first and second obtuse marginal artery. A Choice PT extra-support wire was placed distally and a 3 mm x 38 mm Adrian frontier stent was deployed at 24 kiley in the ostial proximal segment reducing the critical disease to 0%. Excellent angiographic results were obtained down both saphenous vein graft. At the end the procedure the apparatus was removed the groin is reprepped closure change sheath was removed and hemostasis was achieved using Perclose device patient was transferred to the postop holding in stable condition ANGIOGRAPHIC RESULTS The left main artery Ostially occluded The right coronary artery Proximally occluded The MOE ventriculogram reveals Dilated ventricle inferior wall hypokinesis estimate ejection fraction 35 to 40% The left ventricular end-diastolic pressure 15 mmHg ARVIZU is patent to the LAD. Distal to the anastomosis the distal LAD has subtotal occlusion and supplies a small amount of myocardium apically. Saphenous vein graft to the right coronary artery has a proximal 70% stenosis and a mid vessel 70% stenosis. The right coronary is dominant Saphenous vein graft to the circumflex artery has a proximal concentric 90% stenosis followed by additional 60 and 70% stenosis followed by an eccentric 60 to 70% stenosis in the midportion of the graft. The lumen of the graft is equal in size to the combined caliber of the first and second obtuse marginal artery. The graft skips from the first obtuse marginal artery to the second obtuse marginal artery IMPRESSION Coronary disease as described above Successful stenting of the saphenous vein graft to the right coronary severe disease reduced to 0% with 2 noncontiguous drug-eluting stents Successful stenting of the ostial proximal saphenous vein graft supplying the first and second obtuse marginal artery. Critical disease reduced to 0% with 1 contiguous drug-eluting stent. Persistent 70% stenosis in the mid body of the large saphenous vein graft which supplies the first and second obtuse marginal artery Reduced ejection fraction Normal left ventricular end-diastolic pressure PLAN 1. Dual antiplatelet therapy 2. Cardiac rehabilitation 3. Avoidance of tobacco products 4. Risk factor modification 5. Standard therapy for ischemic heart disease 6. Standard therapy for systolic heart failure 7. LDL less than 55 to be achieved with high intensity statin Electronically signed by : Pancho Mcgowan MD 12/01/2023 14:17:09
[2023-12-01] MEDS: LIDOCAINE 1% 10ML MDV 20 ML IJ (13:44)
[2023-12-01] MEDS: diphenhydrAMINE 50MG/ML VIAL 50 MG IV (13:44)
[2023-12-01] MEDS: HEPARIN 1,000 UNITS/500ML NS (CATH LAB) 3000 UNIT IV (13:44)
[2023-12-01] MEDS: HEPARIN 1,000 UNITS/ML 10ML VIAL (CATH LAB) 10000 UNIT IV (13:44)
[2023-12-01] MEDS: 0.9 % SODIUM CHLORIDE 500 ML 25 ML IV (13:45)
[2023-12-01] MEDS: MIDAZOLAM HCL 1MG/1ML 5ML VIAL 1 MG IV (13:45)
[2023-12-01] MEDS: FENTANYL 100MCG/2ML VIAL 25 MCG IV (13:45)
[2023-12-01] MEDS: IOPAMIDOL-370 (76%);100ML BOTTLE 110 ML IV (14:22)
[2023-12-01 14:25] LABS: CATHL Activated Clotting Time 283 SEC (74-125)
[2023-12-01] MEDS: PRAVASTATIN 20MG TAB 20 MG PO (21:53)
[2023-12-01] MEDS: ISOSORBIDE MONO 60MG TAB.ER.24H 120 MG PO (21:54)
[2023-12-02] VITALS (7 sets, daily range): BP systolic 95–123; BP diastolic 55–87; PULSE 72–84; RESP 15–19; TEMP 36.6–36.8; O2SAT 94–97; BMI 27.8
--- NOTE | 2023-12-02 05:42 | PC.NURSE ---
Patient has had a wonderful night. Patient has slept through most of it. Did get up to the bathroom this shift with no difficulties. Cath site in the groin remains clean dry and intact with no bruising
[2023-12-02] MEDS: CLOPIDOGREL 75MG TAB 75 MG PO (08:20)
[2023-12-02] MEDS: DAPAGLIFLOZIN PROPANEDIOL 10 MG TABLET PO (08:20)
[2023-12-02] MEDS: PANTOPRAZOLE 40MG TABLET 40 MG PO (08:20)
[2023-12-02] MEDS: ASPIRIN EC 81MG TABLET 81 MG PO (08:20)
[2023-12-02] MEDS: POTASSIUM CHLORIDE 10MEQ CAPSULE.ER 20 MEQ PO (08:20)
--- NOTE | 2023-12-02 08:29 | PC.NURSE ---
pt is hypotensive. spoke with pharmacy regarding medications. WIll talk with
[2023-12-02 10:21] LABS: Basophils % 0.1 % (0.1-2.0); Eosinophils # 0.1 K/mm3 (0.0-0.4); Eosinophils % 2.1 % (0.1-12.0); Lymphocytes # 1.2 K/mm3 (0.7-4.5); Lymphocytes % 17.6 % (10-50); Mean Corpuscular HGB Conc 33.3 g/dL (31.8-35.4); Mean Corpuscular Hemoglobin 30.7 pg (27.0-31.2); Mean Corpuscular Volume 92.2 fl (80-94); Mean Platelet Volume 7.1 fl (7.4-10.4); Monocytes # 0.3 K/mm3 (0.1-1.0); Monocytes % 3.8 % (1.7-9.3); Neutrophils # 4.9 K/mm3 (1.8-7.8); Neutrophils % 76.3 % (37.0-80.0); Platelet Count 207 K/mm3 (142-424); Red Blood Count 4.23 M/mm3 (4.60-6.20); Red Cell Distribution Width 13.9 % (11.5-17.5); White Blood Count 6.5 K/mm3 (4.8-10.8)
--- NOTE | 2023-12-02 10:28 | PC.NURSE ---
spoke with MD regarding bp medications. held due to hypotension
[2023-12-02 10:29] LABS: Chloride 101 mmol/L (98-107); Potassium 4.1 mmoL/L (3.5-5.1); Sodium 137 mmol/L (136-145)
[2023-12-02 10:32] LABS: Anion Gap 12.1 mEq/L (5-15); Blood Urea Nitrogen 28 mg/dl (9-20); Calcium 8.7 mg/dl (8.4-10.2); Carbon Dioxide 28 mmol/L (22.0-30.0); Creatinine Clearance Estimated 66 mL/min (50-200); Estimated Glomerular Filt Rate 60 ml/min (>60); GFR (African American) 73 ML/MIN (>60); Glucose 117 mg/dl (74-100)
--- NOTE | 2023-12-02 16:29 | P.DS_ITS ---
General Admission date:: 12/01/23 Discharge date: 12/02/23 HPI HPI HPI: This is a 68-year-old male xtensive history of CAD status post CABGx5, hypertension, hyperlipidemia, right bundle branch block, and CHF presenting to the emergency department for evaluation of chest pain. Patient stated that the pain has been occurring daily for quite some time, but has been getting worse over the past week. He is taking nitroglycerin daily with no relief. He had approximately 4 sublingual nitroglycerin prior to arrival here tonight. He continues to have 7 out of 10 substernal aching pain that is nonradiating. Not andriy seems make it better or worse. He was seen in cardiology clinic on 11/29/2023 for the pain. They plan to do a left heart cath and echocardiogram given the patient is already maxed on antianginals according to medical record review. Patient's pain became much worse tonight, prompting her to present to the ED as opposed to waiting for outpatient scheduled testing. Admitted for further work up and treatment. Hospital Course Hospital Course Hospital Course: 68-year-old male xtensive history of CAD status post CABGx5, hypertension, hyperlipidemia, right bundle branch block, and CHF presenting to the emergency department for evaluation of chest pain. Patient stated that the pain has been occurring daily for quite some time, but has been getting worse over the past week. On arrival patient presented with intermittent chest pain, hemodynamically stable, underwent CTA of the chest to rule out PE. There is low concern for acute processes. Troponin was elevated. Findings discussed with the ER doctor for admission. Plan as follow: Non-STEMI with elevated troponin: - resolved, s/p cardiac cath prescriptions sent per cards recs Admit patient for cardiac telemetry. Cardiology consult - continue Patient was seen and evaluated at the bedside on the day of discharge. Patient is stable for discharge. Patient wishes to be discharged. All patient questions were answered and patient was given time to ask questions. Patient was discharged in stable condition. Patient understands that she can return to ER in case of any sudden changes in health. Total time spent on DC - 38 mins Exam Data for Last 24 hours Vital signs and Labs for Last 24 Hours: Temp Pulse Resp BP Pulse Ox O2 Del Method 98.3 F 77 18 123/87 96 Room Air 12/02/23 15:32 12/02/23 15:32 12/02/23 15:32 12/02/23 15:32 12/02/23 15:32 12/02/23 15:32 Laboratory Results - last 24 hr 12/02/23 10:02: WBC 6.5, RBC 4.23 L, Hgb 13.0 L, Hct 39.0 L, MCV 92.2, MCH 30.7, MCHC 33.3, RDW 13.9, Plt Count 207, MPV 7.1 L, Neut % (Auto) 76.3, Lymph % (Auto) 17.6, [place] % (Auto) 3.8, Eos % (Auto) 2.1, Baso % (Auto) 0.1, Neut # (Auto) 4.9, Lymph # (Auto) 1.2, [place] # (Auto) 0.3, Eos # (Auto) 0.1, Baso # (Auto) 0.0, Sodium 137, Potassium 4.1, Chloride 101, Carbon Dioxide 28, Anion Gap 12.1, BUN 28 H, Creatinine 1.20, Estimated Creat Clear 66, Estimated GFR 60, Est GFR ( Amer) 73, Glucose 117 H, Calcium 8.7 I & O for Last 24 hours: Intake & Output 11/29/23 11/30/23 12/01/23 12/02/23 23:59 23:59 23:59 23:59 Intake Total 720 / 870 860 / 860 Output Total 800 / 800 250 / 250 Balance -80 / 70 610 / 610 Weight 80.05 kg 80.603 kg Constitutional Constitutional: no acute distress *Routine HEENT Exam Head: Present normocephalic Eye: Present EOMI and PERRL ENT: Present mucous membranes moist *Routine Neck Exam Neck: Present supple; Absent lymphadenopathy *Routine Respiratory Exam Respiratory: Present CTA bilaterally *Routine Cardiovascular Exam Cardiovascular: Present RRR *Routine Abdominal Exam Abdominal: Present soft and normoactive bowel sounds; Absent tenderness *Routine Extremities Exam Extremities: Absent cyanosis, clubbing or edema *Routine Skin Exam Skin: Present warm; Absent rash *Routine Neurological Exam Neurological: Present alert and oriented X3 Results Data Completed and Pending Labs on day of discharge: Labs from last 24 hours 12/02/23 10:02 WBC 6.5 RBC 4.23 L Hgb 13.0 L Hct 39.0 L MCV 92.2 MCH 30.7 MCHC 33.3 RDW 13.9 Plt Count 207 MPV 7.1 L Neut % (Auto) 76.3 Lymph % (Auto) 17.6 [place] % (Auto) 3.8 Eos % (Auto) 2.1 Baso % (Auto) 0.1 Neut # (Auto) 4.9 Lymph # (Auto) 1.2 [place] # (Auto) 0.3 Eos # (Auto) 0.1 Baso # (Auto) 0.0 Sodium 137 Potassium 4.1 Chloride 101 Carbon Dioxide 28 Anion Gap 12.1 BUN 28 H Creatinine 1.20 Estimated Creat Clear 66 Estimated GFR 60 Est GFR ( Amer) 73 Glucose 117 H Calcium 8.7 DS: Diagnosis Discharge Diagnosis (1) Acute non-ST elevation myocardial infarction (NSTEMI): Status: Acute Code(s): I21.4 - Non-ST elevation (NSTEMI) myocardial infarction (2) Hypertension: Status: Acute Code(s): I10 - Essential (primary) hypertension Qualifiers: Hypertension type: primary hypertension Qualified Code(s): I10 - Essential (primary) hypertension (3) Hyperlipidemia: Status: Acute Code(s): E78.5 - Hyperlipidemia, unspecified Qualifiers: Hyperlipidemia type: mixed hyperlipidemia Qualified Code(s): E78.2 - Mixed hyperlipidemia (4) RBBB: Status: Acute Code(s): I45.10 - Unspecified right bundle-branch block (5) Hx of CABG: Status: Acute Code(s): Z95.1 - Presence of aortocoronary bypass graft Meds Home Medications and Allergies Home Medications Medication Instructions Recorded Confirmed Type aspirin 81 mg tablet,delayed 81 mg PO DAILY 12/28/17 12/01/23 History release (Adult Low Dose Aspirin) hydrochlorothiazide 25 mg tablet 25 mg PO DAILY 12/28/17 12/01/23 History nitroglycerin 0.4 mg sublingual 0.4 mg sublingual Q5M PRN Chest 12/28/17 12/01/23 History tablet (Nitrostat) Pain ranolazine 1,000 mg 1,000 mg PO BID 12/28/17 12/01/23 History tablet,extended release,12 hr (Ranexa) clopidogrel 75 mg tablet 75 mg PO DAILY 05/13/21 12/01/23 History dapagliflozin propanediol 10 mg 10 mg PO DAILY 11/29/23 12/01/23 History tablet (Farxiga) sacubitril 24 mg-valsartan 26 mg 1 tab PO BID 11/29/23 12/01/23 History tablet (Entresto) albuterol 90 mcg/actuation aerosol 90 mcg inhalation Q6H PRN Wheezing 12/01/23 12/01/23 History inhaler carvedilol 12.5 mg tablet 12.5 mg PO BID 12/01/23 12/01/23 History clonidine HCl 0.1 mg tablet 1 mg PO DAILY PRN Blood Pressure 12/01/23 12/01/23 History isosorbide mononitrate 60 mg 120 mg PO HS 12/01/23 12/01/23 History tablet,extended release 24 hr rosuvastatin 20 mg tablet 20 mg PO DAILY 12/01/23 12/01/23 History potassium chloride 10 mEq 20 meq PO DAILY 30 days #60 caps 12/02/23 Rx capsule,extended release New Prescriptions to Start Prescriptions: potassium chloride Diana Meza Allergies Allergy/AdvReac Type Severity Reaction Status Date / Time morphine Allergy Intermediate HIVES,SWEAT Verified 11/29/23 13:32 ING Discharge Plan Disposition Patient Disposition: Home, Self-Care Condition: Good Discharge Order Discharge Orders: Discharge Order (Routine); Ordered 12/02/23 Ordered By: Diana Meza Follow up Plan Follow up with: Pancho Mcgowan MD [Staff Physician] - 1 week Ten Mendoza MD [Primary Care Provider] - 2 weeks Prescriptions/Medication Reconciliation: New potassium chloride 10 mEq Capsule, Extended Release 20 meq PO DAILY 30 Days Qty: 60 0RF Continued Farxiga 10 mg tablet 10 mg PO DAILY Entresto 24-26 mg tablet 1 tab PO BID Patient Comments: TAKE ONE TABLET BY MOUTH TWICE DAILY aspirin [Adult Low Dose Aspirin] 81 mg tablet,delayed release (DR/EC) 81 mg PO DAILY hydrochlorothiazide 25 mg tablet 25 mg PO DAILY nitroglycerin [Nitrostat] 0.4 mg tablet, sublingual 0.4 mg SUBLINGUAL Q5M PRN (Reason: Chest Pain) ranolazine [Ranexa] 1,000 mg tablet extended release 12 hr 1,000 mg PO BID clopidogrel 75 MG tablet 75 mg PO DAILY clonidine HCl 0.1 mg tablet 1 mg PO DAILY PRN (Reason: Blood Pressure) Patient Comments: For SBP > 180 carvedilol 12.5 mg tablet 12.5 mg PO BID albuterol 90 mcg/actuation Aerosol 90 mcg INHALATION Q6H PRN (Reason: Wheezing) isosorbide mononitrate 60 mg tablet extended release 24 hr 120 mg PO HS rosuvastatin 20 mg tablet 20 mg PO DAILY Discontinued potassium chloride 10 mEq capsule, extended release 10 meq PO DAILY Problem Reconciliation Problems Reviewed?: Yes Patient Discharge Instructions ACTIVITY: Ambulate as tolerated DIET: low fat, low cholesterol Patient Instructions: DI for Heart Attack, Heart-Healthy Diet, DI for Heart Failure, DI for Cardiac Catheterization, DI for Surgical Site Infection Providers Primary Care Provider: Ten Mendoza Admit Provider: Diana Meza Attending Provider: Diana Meza
--- NOTE | 2023-12-02 16:50 | PC.NURSE ---
genny chan site is c/d/i
--- NOTE | 2023-12-02 17:16 | PC.NURSE ---
discharge and follow up education has been given to patient. IV removed. Groin site is c/d/i.
--- NOTE | 2023-12-04 14:53 | CARE MANAGER ---
Contacted patient related to hospital discharge. He has not picked up his K+ yet, but he will. He has contacted cardiology and Dr. Mendoza for an appointment. He denies any questions or concerns. PATEL Mantilla
== END 2023-12-02 17:21 | disposition home or self-care (01) | DRG 322 ==
LOC: ER 04:30 → 2ND 09:31
PROVIDERS: Internal Medicine; Nurse Practitioner Family; Admitting Provider Internal Medicine; Emergency Provider Emergency Medicine; PCP Internal Medicine Adolescent Medicine; Visit Provider Internal Medicine
PROC: 027135Z Dilation of Coronary Artery, Two Arteries with Two Drug-eluting Intraluminal Devices, Percutaneous Approach (ICD-10-PCS; principal; 2023-12-01 13:45)
DX: I21.4 Non-ST elevation (NSTEMI) myocardial infarction (principal); I25.810 Atherosclerosis of coronary artery bypass graft(s) without angina pectoris; I25.10 Atherosclerotic heart disease of native coronary artery without angina pectoris; I11.0 Hypertensive heart disease with heart failure; I50.9 Heart failure, unspecified; E78.5 Hyperlipidemia, unspecified
CPT/HCPCS: 36415; 71045; 71275; 80048; 80053; 83735; 83880; 84436; 84443; 84484; 85025; 85347; 92937; 92938; 93005; 93306; 93459; 99152; 99153; 99285; C1725; C1760; C1769; C1874; C1876; C1894; C9604; C9605; J1644; J2405; Q9967

== ENCOUNTER 2023-12-07 11:15 | Outpatient (CLI) | payer BC, MEDICARE, SELFPAY ==
[2023-12-07 11:55] LABS: Hematocrit 41.6 % (42.0-52.0); Hemoglobin 13.7 g/dL (14.1-18.0)
[2023-12-07 11:59] LABS: Blood Urea Nitrogen 28 mg/dl (9-20); Estimated Glomerular Filt Rate 55 ml/min (>60); GFR (African American) 66 ML/MIN (>60)
== END 2023-12-07 23:59 ==
PROVIDERS: PCP Internal Medicine Adolescent Medicine; Visit Provider Internal Medicine
DX: I21.4 Non-ST elevation (NSTEMI) myocardial infarction (principal); I10 Essential (primary) hypertension
CPT/HCPCS: 36415; 82565; 84520; 85014; 85018

== ENCOUNTER 2024-10-29 14:35 | Outpatient (POV) | payer BC, MEDICARE, SELFPAY | END 2024-10-29 23:59 | disposition home or self-care (01) | LOC: SC 10-30 07:11 | PROVIDERS: Visit Provider Dermatology | DX: Z00.00 Encounter for general adult medical examination without abnormal findings (principal) ==

== ENCOUNTER 2024-12-15 18:05 | Observation (INO) | payer BC, SELFPAY ==
[2024-12-15] VITALS (9 sets, daily range): BP systolic 160–184; BP diastolic 87–110; PULSE 67–86; RESP 12–20; TEMP 36.6–36.7; O2SAT 96–100; BMI 26.6; BMI 28.2
--- NOTE | 2024-12-15 18:15 | XR_ITS ---
PROCEDURE INFORMATION: Exam: XR Chest Exam date and time: 12/15/2024 6:43 PM Age: 69 years old Clinical indication: Pain; Chest pressure; Additional info: Chest pain TECHNIQUE: Imaging protocol: Radiologic exam of the chest. Views: 1 view. COMPARISON: CT ANGIO CHEST PE PROTOCOL 12/01/2023 2:29 AM FINDINGS: Tubes, catheters and devices: Multiple sternal cerclage wires overlie the sternum. Lungs: Unremarkable. No consolidation. Pleural spaces: Unremarkable. No pleural effusion. No pneumothorax. Heart/Mediastinum: Postsurgical changes compatible with CABG procedure. Bones/joints: Unremarkable. IMPRESSION: No acute findings.
--- NOTE | 2024-12-15 18:22 | ED_ITS ---
<Statement entered by Florecita Helm MD - 12/15/24 22:56> I was consulted by the RICHARD, and we discussed the complexity of the problems being addressed. I approved the treatment and management plan for this patient's care in the emergency department, thus performing a substantive portion of the medical decision making. Florecita Helm MD, ROGER, FACEP Discharge Plan Disposition Patient Disposition: Admitted Condition: Good Clinical Impressions Clinical Impression: NSTEMI (non-ST elevated myocardial infarction), Acute non-ST elevation myocardial infarction (NSTEMI) Discharge ED Provider: Florecita Helm HPI <JAMES Reza - Last Filed: 12/15/24 20:10> General Chief Complaint: Chest Pain Stated Complaint: chest pain Time Seen by Provider: 12/15/24 18:10 Mode of Arrival: Ambulatory Source of Information: Patient Limitations: No Limitations Description of Symptoms (Recalled from ER Triage Doc. by RN): chest pain that started @ 1700. extensive cardiac history History of Present Illness HPI narrative: Patient presents complaining of left-sided chest tightness. He reports that he feels a sensation of something being stuck. He does have a history of CAD with CABG and over 10 stents. He denies any shortness of breath or cough. He reports that the pain onset was at 1700 while walking to his break room afterward. He did take 2 nitroglycerin which improved the pain somewhat. complaint: chest pain Onset (ago): hour(s) Time: 17:00 Duration: constant Activity at onset: light activity Pain location: left chest Severity: moderate Severity scale (1-10): 5 Quality: tightness Pain radiation: none Relieving factors: nitroglycerin Exacerbating factors: nothing Risk Factors for CAD: Hypertension Treatments prior to or on arrival for Cardiac Chest Pain: nitroglycerin Related Data Home Medications ?Medication ?Instructions ?Recorded ?Confirmed aspirin 81 mg tablet,delayed 81 mg PO DAILY 12/28/17 07/25/24 release (Adult Low Dose Aspirin) hydrochlorothiazide 25 mg tablet 25 mg PO DAILY 12/28/17 07/25/24 nitroglycerin 0.4 mg sublingual 0.4 mg sublingual Q5M PRN Chest 12/28/17 07/25/24 tablet (Nitrostat) Pain ranolazine 1,000 mg 1,000 mg PO BID 12/28/17 07/25/24 tablet,extended release,12 hr (Ranexa) clopidogrel 75 mg tablet 75 mg PO DAILY 05/13/21 07/25/24 dapagliflozin propanediol 10 mg 10 mg PO DAILY 11/29/23 07/25/24 tablet (Farxiga) sacubitril 24 mg-valsartan 26 mg 1 tab PO BID 11/29/23 07/25/24 tablet (Entresto) albuterol 90 mcg/actuation aerosol 90 mcg inhalation Q6H PRN Wheezing 12/01/23 07/25/24 inhaler carvedilol 12.5 mg tablet 12.5 mg PO BID 12/01/23 07/25/24 clonidine HCl 0.1 mg tablet 1 mg PO DAILY PRN Blood Pressure 12/01/23 07/25/24 rosuvastatin 20 mg tablet 20 mg PO DAILY 12/01/23 07/25/24 isosorbide mononitrate 60 mg 60 mg PO HS 03/07/24 07/25/24 tablet,extended release 24 hr Previous Rx's ?Medication ?Instructions ?Recorded potassium chloride 10 mEq 20 meq (2 x 10 mEq) PO DAILY 12/02/23 capsule,extended release days #60 caps Allergies Allergy/AdvReac Type Severity Reaction Status Date / Time morphine Allergy Intermediate HIVES,SWEAT Verified 07/25/24 09:11 ING [facility] <JAMES Reza - Last Filed: 12/15/24 20:10> [facility] Disclaimer: The information contained in this section may have been updated after the patient was seen, as this information can be updated by other users. Medical History Abnormal electrocardiogram [ECG] [EKG] Acute non-ST elevation myocardial infarction (NSTEMI) CHF (congestive heart failure) Hyperlipidemia Hypertension Dizziness Crescendo angina Coronary artery disease Acute hypokalemia Acute non-ST elevation myocardial infarction (NSTEMI) Accelerated hypertension Prostate cancer Pharyngitis Stable angina RBBB Angina at rest Chest pain due to coronary artery disease Chest pain Surgical History Hx of CABG Social History Smoking Status: Never smoker second hand exposure: No alcohol intake: never substance use type: denies use current occupational status: employed Travel in the last 8 weeks: None adopted: No foster care: No household members: family housing: house lives independently: Yes marital status: service: No halfway: No 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 current occupational exposures/hazards: No caffeine: Yes Have you lived/traveled outside [place] in past 30 days?: No Contact w/someone who lives/traveled outside [place] past 30 days?: No Exposure to someone with infectious disease in past 14 days?: No Do you have a fever (greater than 100.4 F or 38 C)?: No Have you tested positive for COVID-19: No Exposed to someone with COVID-19 in past 14 days?: No Do you have a sore throat?: No Do you have a cough?: No Do you have any weakness?: No Do you have any diarrhea?: No Are you experiencing any unusual bleeding?: No Do you have any muscle aches/pain?: No Do you have any abdominal pain?: No Are you experiencing loss of taste or smell?: No Other Medical History Have you received the Flu Vaccine for this season: No Have you received the Pneumonia Vaccine: No <JAMES Reza - Last Filed: 12/15/24 20:10> ROS Obtained: Yes Systems reviewed as appropriate & no additional complaints except as documented Physical Exam <JAMES Reza - Last Filed: 12/15/24 20:10> General General appearance: alert and in no apparent distress Head Head exam: atraumatic and normocephalic Eye Eye exam: Present normal appearance and EOMI Chest Chest inspection: Present symmetric chest wall rise Respiratory Respiratory exam: Present normal lung sounds bilaterally; Absent wheezes or stridor Cardiovascular Cardiovascular exam: Present regular rate and normal rhythm; Absent systolic murmur Extremities Exam Extremities exam: Present full ROM Neurological Exam Neurological exam: Present alert and oriented X3 Psychiatric Psychiatric exam: Present normal affect and normal mood Skin Skin exam: Present warm, dry and intact HEART Score <JAMES Reza - Last Filed: 12/15/24 20:10> HEART Score HEART Score assessment performed?: Yes History (anamnesis): Highly suspicious ECG: Non-specific disturbance Age: >65 years Risk factors: Atherosclerosis history Troponin: 1-3x normal limit HEART Score: 8 Procedures <Florecita Helm MD - Last Filed: 12/15/24 18:40> Miscellaneous Procedure Procedure Performed: Limited cardiac ultrasound Indication: Chest pain Identified structures: The heart was visualized in the parasternal long axis, parastenal short axis, apical four chamber and subxyphiod views. The IVC was visualized in the short axis and long axis at its entry into the right atrium. Findings: Mild to moderately depressed LVEF with elevated E-point separation but no definitive and obvious regional wall motion abnormalities no pericardial effusion or severe right heart strain Impression: Mild to moderately depressed EF with elevated E-point separation suggesting some mild CHF Images were to permanent archive The study was technically adequate CPT: 62289-36 This study was performed by me, and I personally interpreted all images/videos. Based on my clinical judgement, these images were adequate and did not necessitate further imaging. Critical Care <JAMES Reza - Last Filed: 12/15/24 20:10> Critical Care Time Critical Care Time: No Medical Decision Making <JAMES Reza - Last Filed: 12/15/24 20:10> Justin Inquiry Pt receiving controlled substance: No Vital Signs Vital Signs: 12/15/24 18:06 12/15/24 18:25 12/15/24 18:30 Temperature 98.1 F Temperature Source Oral Pulse Rate 84 Pulse Rate [Right] 86 Respiratory Rate 20 16 13 Blood Pressure 182/102 H 174/97 H Blood Pressure [Right Arm] 182/110 H Blood Pressure Mean Blood Pressure Mean [Right Arm] 134 Blood Pressure Source Blood Pressure Position 02 Sat by Pulse Oximetry 97 96 Oxygen Delivery Method Room Air Room Air Room Air 12/15/24 19:00 12/15/24 19:33 12/15/24 20:03 Temperature 97.9 F Temperature Source Oral Pulse Rate 69 70 74 Pulse Rate [Right] Respiratory Rate 12 12 16 Blood Pressure 160/87 H 174/101 H 168/102 H Blood Pressure [Right Arm] Blood Pressure Mean 130 133 Blood Pressure Mean [Right Arm] Blood Pressure Source Automatic Cuff Blood Pressure Position Supine 02 Sat by Pulse Oximetry 100 96 Oxygen Delivery Method Room Air Room Air Room Air 12/15/24 20:04 Temperature Temperature Source Pulse Rate 74 Pulse Rate [Right] Respiratory Rate Blood Pressure Blood Pressure [Right Arm] Blood Pressure Mean Blood Pressure Mean [Right Arm] Blood Pressure Source Blood Pressure Position 02 Sat by Pulse Oximetry Oxygen Delivery Method Lab Data Labs: Lab Results 12/15/24 18:22: WBC 6.3, RBC 4.17 L, Hgb 12.7 L, Hct 37.9 L, MCV 90.9, MCH 30.5, MCHC 33.5, RDW 13.0, Plt Count 213, MPV 10.2, Neut % (Auto) 66.7, Lymph % (Auto) 20.9, [place] % (Auto) 10.0 H, Eos % (Auto) 1.8, Baso % (Auto) 0.3, Neut # (Auto) 4.2, Lymph # (Auto) 1.3, [place] # (Auto) 0.6, Eos # (Auto) 0.1, Baso # (Auto) 0.0, D-Dimer 0.78 H, Sodium 140, Potassium 3.2 L, Chloride 103, Carbon Dioxide 28, Anion Gap 12.2, BUN 33 H, Creatinine 1.40 H, Estimated Creat Clear 54, Estimated GFR 50 L, Est GFR ( Amer) 61, Glucose 101 H, Calcium 9.6, Total Bilirubin 0.4, AST 36, ALT 23, Alkaline Phosphatase 72, Troponin I 0.16 H, Total Protein 7.2, Albumin 4.4, Globulin 2.8, Albumin/Globulin Ratio 1.6 12/15/24 18:22 12/15/24 18:22 Response Orders (Tests/Meds): ED MEDICATIONS Generic Name Dose Route Start Last Admin Trade Name Freq PRN Reason Stop Dose Admin Nitroglycerin/Dextrose 250 mls @ 6 mls/hr 12/15/24 18:30 Nitroglycerin 50mg/250ml D5w IV 01/14/25 18:29 .Q24H JENELLE Protocol 20 MCG/MIN ORDERS Category Date Time Status POCUS Point of Care (ER Only) Stat Exams 12/15/24 18:19 Taken XR chest portable Stat Exams 12/15/24 18:15 Completed Complete Blood Count Auto Diff Stat Lab 12/15/24 18:22 Completed Comprehensive Metabolic Panel Stat Lab 12/15/24 18:22 Completed D-Dimer Stat Lab 12/15/24 18:22 Completed HIV Combo Stat Lab 12/15/24 18:22 Received Hepatitis C Ab Qual. W/ RFX Stat Lab 12/15/24 18:22 Received Troponin I Q3H Lab 12/15/24 21:15 Ordered Troponin I Q3H Lab 12/16/24 00:15 Ordered Troponin I Stat Lab 12/15/24 18:22 Completed MDM Narrative Medical Decision Narrative: In summary patient is a 69-year-old male who presents the emergency department for evaluation of chest pain. Patient is hypertensive upon arrival, afebrile. Unremarkable physical exam. Differential diagnosis includes ACS, pulmonary embolism, pneumonia. Initial workup will be conducted with hematologic labs, EKG, chest, D dimer negative per years. Initial workup reviewed by me elevated troponin, EKG. Upon repeat evaluation patient had resolution of symptoms prior to administration of nitro drip. Given this patient admitted to hospitalist service for NSTEMI. <Florecita Helm MD - Last Filed: 12/15/24 18:40> Vital Signs Vital Signs: 12/15/24 18:06 12/15/24 18:25 12/15/24 18:30 Temperature 98.1 F Temperature Source Oral Pulse Rate 84 Pulse Rate [Right] 86 Respiratory Rate 20 16 13 Blood Pressure 182/102 H 174/97 H Blood Pressure [Right Arm] 182/110 H Blood Pressure Mean Blood Pressure Mean [Right Arm] 134 Blood Pressure Source Blood Pressure Position 02 Sat by Pulse Oximetry 97 96 Oxygen Delivery Method Room Air Room Air Room Air 12/15/24 19:00 12/15/24 19:33 12/15/24 20:03 Temperature 97.9 F Temperature Source Oral Pulse Rate 69 70 74 Pulse Rate [Right] Respiratory Rate 12 12 16 Blood Pressure 160/87 H 174/101 H 168/102 H Blood Pressure [Right Arm] Blood Pressure Mean 130 133 Blood Pressure Mean [Right Arm] Blood Pressure Source Automatic Cuff Blood Pressure Position Supine 02 Sat by Pulse Oximetry 100 96 Oxygen Delivery Method Room Air Room Air Room Air 12/15/24 20:04 Temperature Temperature Source Pulse Rate 74 Pulse Rate [Right] Respiratory Rate Blood Pressure Blood Pressure [Right Arm] Blood Pressure Mean Blood Pressure Mean [Right Arm] Blood Pressure Source Blood Pressure Position 02 Sat by Pulse Oximetry Oxygen Delivery Method Lab Data Labs: Lab Results 12/15/24 18:22: WBC 6.3, RBC 4.17 L, Hgb 12.7 L, Hct 37.9 L, MCV 90.9, MCH 30.5, MCHC 33.5, RDW 13.0, Plt Count 213, MPV 10.2, Neut % (Auto) 66.7, Lymph % (Auto) 20.9, [place] % (Auto) 10.0 H, Eos % (Auto) 1.8, Baso % (Auto) 0.3, Neut # (Auto) 4.2, Lymph # (Auto) 1.3, [place] # (Auto) 0.6, Eos # (Auto) 0.1, Baso # (Auto) 0.0, D-Dimer 0.78 H, Sodium 140, Potassium 3.2 L, Chloride 103, Carbon Dioxide 28, Anion Gap 12.2, BUN 33 H, Creatinine 1.40 H, Estimated Creat Clear 54, Estimated GFR 50 L, Est GFR ( Amer) 61, Glucose 101 H, Calcium 9.6, Total Bilirubin 0.4, AST 36, ALT 23, Alkaline Phosphatase 72, Troponin I 0.16 H, Total Protein 7.2, Albumin 4.4, Globulin 2.8, Albumin/Globulin Ratio 1.6 Response Orders (Tests/Meds): ED MEDICATIONS Generic Name Dose Route Start Last Admin Trade Name Freq PRN Reason Stop Dose Admin Nitroglycerin/Dextrose 250 mls @ 6 mls/hr 12/15/24 18:30 Nitroglycerin 50mg/250ml D5w IV 01/14/25 18:29 .Q24H JENELLE Protocol 20 MCG/MIN ORDERS Category Date Time Status POCUS Point of Care (ER Only) Stat Exams 12/15/24 18:19 Taken XR chest portable Stat Exams 12/15/24 18:15 Completed Complete Blood Count Auto Diff Stat Lab 12/15/24 18:22 Completed Comprehensive Metabolic Panel Stat Lab 12/15/24 18:22 Completed D-Dimer Stat Lab 12/15/24 18:22 Completed HIV Combo Stat Lab 12/15/24 18:22 Received Hepatitis C Ab Qual. W/ RFX Stat Lab 12/15/24 18:22 Received Troponin I Q3H Lab 12/15/24 21:15 Ordered Troponin I Q3H Lab 12/16/24 00:15 Ordered Troponin I Stat Lab 12/15/24 18:22 Completed
[2024-12-15 18:34] LABS: Basophils % 0.3 % (0.1-2.0); Eosinophils # 0.1 K/mm3 (0.0-0.4); Eosinophils % 1.8 % (0.1-12.0); Hematocrit 37.9 % (42.0-52.0); Hemoglobin 12.7 g/dL (14.1-18.0); Lymphocytes # 1.3 K/mm3 (0.7-4.5); Lymphocytes % 20.9 % (10-50); Mean Corpuscular HGB Conc 33.5 g/dL (31.8-35.4); Mean Corpuscular Hemoglobin 30.5 pg (27.0-31.2); Mean Corpuscular Volume 90.9 fl (80-94); Mean Platelet Volume 10.2 fl (7.4-10.4); Monocytes # 0.6 K/mm3 (0.1-1.0); Neutrophils # 4.2 K/mm3 (1.8-7.8); Neutrophils % 66.7 % (37.0-80.0); Platelet Count 213 K/mm3 (142-424); Red Blood Count 4.17 M/mm3 (4.60-6.20); White Blood Count 6.3 K/mm3 (4.8-10.8)
--- NOTE | 2024-12-15 18:35 | PC.NURSE ---
per dr montiel hold on nitro drip, pt denies chest pain at this time
--- NOTE | 2024-12-15 18:42 | PC.NURSE ---
portable chest xray at bedside
[2024-12-15 18:43] LABS: Alanine Aminotransferase 23 U/L (12-78); Albumin Level 4.4 g/dl (3.5-5.0); Albumin/Globulin Ratio 1.6 (1.1-1.8); Alkaline Phosphatase 72 U/L (38-126); Anion Gap 12.2 mEq/L (5-15); Aspartate Amino Transferase 36 U/L (17-59); Bilirubin,Total 0.4 mg/dl (0.2-1.3); Blood Urea Nitrogen 33 mg/dl (9-20); Calcium 9.6 mg/dl (8.4-10.2); Carbon Dioxide 28 mmol/L (22.0-30.0); Chloride 103 mmol/L (98-107); Creatinine Clearance Estimated 54 mL/min (50-200); Estimated Glomerular Filt Rate 50 ml/min (>60); GFR (African American) 61 ML/MIN (>60); Globulin 2.8 g/dL (1.3-3.2); Glucose 101 mg/dl (74-100); Potassium 3.2 mmoL/L (3.5-5.1); Sodium 140 mmol/L (136-145); Total Protein,Serum 7.2 g/dl (6.3-8.2)
[2024-12-15 18:49] LABS: D-Dimer 0.78 ug/mL (0.0-0.5)
[2024-12-15 18:57] LABS: Troponin I 0.16 ng/ml (0.00-0.034)
--- NOTE | 2024-12-15 19:31 | PC.NURSE ---
paged at this time.
--- NOTE | 2024-12-15 19:31 | PC.NURSE ---
pt ambulated to the bathroom at this time.
--- NOTE | 2024-12-15 19:32 | PC.NURSE ---
Dr.lohman johnson for nain and being paged at this time
--- NOTE | 2024-12-15 20:05 | PC.NURSE ---
Report called to Janette; waiting on floor to get patient
--- NOTE | 2024-12-15 20:26 | PC.NURSE ---
Patient arrived to floor via wheelchair from ED at 20:10.
[2024-12-15 22:46] LABS: Troponin I 0.16 ng/ml (0.00-0.034)
[2024-12-16] VITALS (21 sets, daily range): BP systolic 104–173; BP diastolic 62–94; PULSE 60–83; RESP 14–20; TEMP 36.3–36.7; O2SAT 93–100; BMI 28.2
--- NOTE | 2024-12-16 00:14 | P.HP_ITS ---
<Statement entered by Jas Rendon MD - 12/18/24 10:31> Personally examined patient and agree with the plan of care as outlined by the MEDICAL APPLIANCE MAKER. History of Present Illness *Admission Date: 12/15/24 *Reason for visit:: Increasing unstable left-sided chest pain *History of present illness: This patient has had coronary artery bypass Pref grafting and multiple stent. Normally takes about 1 nitroglycerin a week. He continues to work but noticed over the last week or 2 he was taking as many as 5 or 6 a day now. He has come to the emergency room having slightly increased troponin. And was still having chest pain.. Nitroglycerin drip was about ready to be started when the pain disappeared. Evaluation of labs and EKG shows that the patient has had a non-STEMI.. Presently he is having no chest pain on the time of the exam to be admitted upstairs. I have spoken with the ER provider gone over the patient and with a heart score of 8. With the present labs and the patient's history will admit him to be evaluated by Dr. Mcgowan in the morning. The ER provider also did a bedside echo showing some decreased left ventricular ejection fraction. Patient is stable at this time but does need to be admitted and evaluated by cardiovascular. Question whether patient will need recatheterization or adjustment of medications. [facility] Disclaimer: The information contained in this section may have been updated after the patient was seen, as this information can be updated by other users. Medical History Abnormal electrocardiogram [ECG] [EKG] Acute non-ST elevation myocardial infarction (NSTEMI) CHF (congestive heart failure) Hyperlipidemia Hypertension Dizziness Crescendo angina Coronary artery disease Acute hypokalemia Acute non-ST elevation myocardial infarction (NSTEMI) Accelerated hypertension Prostate cancer Pharyngitis Stable angina RBBB Angina at rest Chest pain due to coronary artery disease Chest pain Surgical History Hx of CABG Social History Smoking Status: Never smoker second hand exposure: No alcohol intake: never substance use type: denies use current occupational status: employed Travel in the last 8 weeks: None adopted: No foster care: No household members: family housing: house lives independently: Yes marital status: service: No senior care: No 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 current occupational exposures/hazards: No caffeine: Yes Have you lived/traveled outside US in past 30 days?: No Contact w/someone who lives/traveled outside US past 30 days?: No Exposure to someone with infectious disease in past 14 days?: No Do you have a fever (greater than 100.4 F or 38 C)?: No Have you tested positive for COVID-19: No Exposed to someone with COVID-19 in past 14 days?: No Do you have a sore throat?: No Do you have a cough?: No Do you have any weakness?: No Are you experiencing any nausea/vomitting?: No Do you have any diarrhea?: No Are you experiencing any unusual bleeding?: No Do you have any muscle aches/pain?: No Do you have any abdominal pain?: No Are you experiencing loss of taste or smell?: No Other Medical History Have you received the Flu Vaccine for this season: Yes Have you received the Pneumonia Vaccine: Yes Review of Systems Review of Systems Review of systems:: pertinent systems reviewed and negative unless documented below Constitutional Constitutional: Reports as per HPI and Reports fatigue Eyes Eyes: Reports as per HPI ENT Ears, Nose, Mouth, and Throat: Reports as per HPI *Cardiovascular Cardiovascular: Reports as per HPI, Reports chest pain, Reports chest pain at rest and Reports chest pain with activity *Respiratory Respiratory: Reports as per HPI *Gastrointestinal Gastrointestinal: Reports as per HPI *Genitourinary Genitourinary: Reports as per HPI *Musculoskeletal Musculoskeletal: Reports as per HPI Integumentary/Breasts Skin/Breast: Reports as per HPI *Neurologic Neurologic: Reports as per HPI Psychiatric Psychiatric: Reports as per HPI Endocrine Endocrine: Reports as per HPI and Reports fatigue Hematologic/Lymphatic Hematologic/Lymphatic: Reports as per HPI Allergic/Immunologic Allergic/Immunologic: Reports as per HPI Meds Home Medications and Allergies Home Medications ?Medication ?Instructions ?Recorded ?Confirmed ?Type aspirin 81 mg tablet,delayed 81 mg PO DAILY 12/28/17 07/25/24 History release (Adult Low Dose Aspirin) hydrochlorothiazide 25 mg tablet 25 mg PO DAILY 12/28/17 07/25/24 History nitroglycerin 0.4 mg sublingual 0.4 mg sublingual Q5M PRN Chest 12/28/17 07/25/24 History tablet (Nitrostat) Pain ranolazine 1,000 mg 1,000 mg PO BID 12/28/17 07/25/24 History tablet,extended release,12 hr (Ranexa) clopidogrel 75 mg tablet 75 mg PO DAILY 05/13/21 07/25/24 History dapagliflozin propanediol 10 mg 10 mg PO DAILY 11/29/23 07/25/24 History tablet (Farxiga) sacubitril 24 mg-valsartan 26 mg 1 tab PO BID 11/29/23 07/25/24 History tablet (Entresto) albuterol 90 mcg/actuation aerosol 90 mcg inhalation Q6H PRN Wheezing 12/01/23 07/25/24 History inhaler carvedilol 12.5 mg tablet 12.5 mg PO BID 12/01/23 07/25/24 History clonidine HCl 0.1 mg tablet 1 mg PO DAILY PRN Blood Pressure 12/01/23 07/25/24 History rosuvastatin 20 mg tablet 20 mg PO DAILY 12/01/23 07/25/24 History potassium chloride 10 mEq 20 meq (2 x 10 mEq) PO DAILY 30 12/02/23 07/25/24 Rx capsule,extended release days #60 caps isosorbide mononitrate 60 mg 60 mg PO HS 03/07/24 07/25/24 History tablet,extended release 24 hr New Prescriptions to Start Prescriptions: Allergies Allergy/AdvReac Type Severity Reaction Status Date / Time morphine Allergy Intermediate HIVES,SWEAT Verified 07/25/24 09:11 ING Exam Data for Last 24 hours Vital signs and Labs for Last 24 Hours: Temp Pulse Resp BP Pulse Ox O2 Del Method 98.0 F 67 17 184/96 H 98 Room Air 12/15/24 20:10 12/15/24 20:10 12/15/24 20:10 12/15/24 20:10 12/15/24 20:10 12/15/24 20:10 Laboratory Results - last 24 hr 12/15/24 18:22: WBC 6.3, RBC 4.17 L, Hgb 12.7 L, Hct 37.9 L, MCV 90.9, MCH 30.5, MCHC 33.5, RDW 13.0, Plt Count 213, MPV 10.2, Neut % (Auto) 66.7, Lymph % (Auto) 20.9, [place] % (Auto) 10.0 H, Eos % (Auto) 1.8, Baso % (Auto) 0.3, Neut # (Auto) 4.2, Lymph # (Auto) 1.3, [place] # (Auto) 0.6, Eos # (Auto) 0.1, Baso # (Auto) 0.0, D-Dimer 0.78 H, Sodium 140, Potassium 3.2 L, Chloride 103, Carbon Dioxide 28, Anion Gap 12.2, BUN 33 H, Creatinine 1.40 H, Estimated Creat Clear 54, Estimated GFR 50 L, Est GFR ( Amer) 61, Glucose 101 H, Calcium 9.6, Total Bilirubin 0.4, AST 36, ALT 23, Alkaline Phosphatase 72, Troponin I 0.16 H, Total Protein 7.2, Albumin 4.4, Globulin 2.8, Albumin/Globulin Ratio 1.6 12/15/24 22:05: Troponin I 0.16 H I & O for Last 24 hours: Intake & Output 12/13/24 12/14/24 12/15/24 12/16/24 05:59 05:59 05:59 05:59 Weight 180 lb Radiology Reports for the Last 24 Hours: No acute findings on chest Constitutional Constitutional: no acute distress and obese Comments: Presently the patient is in no distress resting comfortably upon the stretcher. *Routine HEENT Exam Head: Present normocephalic and atraumatic Eye: Present EOMI, PERRL and normal accommodation ENT: Present mucous membranes moist *Routine Neck Exam Neck: Present supple and full ROM Routine Chest/Breast/Axilla Exam Comments: No chest wall tenderness, no signs of injury *Routine Respiratory Exam Respiratory: Present CTA bilaterally, normal respiratory effort and able to speak in complete sentences *Routine Cardiovascular Exam Cardiovascular: Present RRR, Normal S1, Normal S2, murmur and irregular rhythm Comments: Slightly irregular rhythm about a 2 out of 6 systolic murmur, no peripheral edema brisk capillary refills in hand nailbeds *Routine Abdominal Exam Abdominal: Present soft and normoactive bowel sounds Comments: Abdominal exam was normal *Routine Rectal Exam Rectal:: deferred *Routine Genitalia Exam Genitalia:: deferred *Routine Extremities Exam Comments: All limbs has good range of motion no edema noted strength bilaterally no significant decrease in any joint range of motion Routine Back/Spine/Pelvis Exam Back/Spine: Present full ROM Comments: Patient is able to sit up move and twist without any problem I did not stand him in the emergency room but he states he has no problems walking *Routine Skin Exam Skin: Present intact and warm Comments: Normal color skin no signs of lesions no signs of abnormal bruising , *Routine Neurological Exam Neurological: Present alert, oriented X3, CN II-XII intact, moving all extremities, normal tone, vision grossly intact and hearing grossly intact Comments: No neurological deficits found on exam Routine Psychiatric Exam Psychiatric: Present normal affect, normal thought process, cooperative, good insight and good judgment H&P: Result Impressions 1. Coronary artery disease with chronic angina worsening over the past 2 weeks becoming unstable requiring more nitroglycerin 2. Chest pain patient came to the ER with chest pain now resolved resting comfortably Imaging and Cardiology Chest x-ray: Additional comments: Chest film normal, EKG shows chronic changes but no new acute ST elevations or depressions Assessment and Plan *Assessment and plan (1) Acute non-ST elevation myocardial infarction (NSTEMI): Status: Acute Category: Medical Code(s): I21.4 - Non-ST elevation (NSTEMI) myocardial infarction (2) Abnormal electrocardiogram [ECG] [EKG]: Status: Acute Category: Medical Code(s): R94.31 - Abnormal electrocardiogram [ECG] [EKG] (3) Hx of CABG: Status: Acute Category: Surgical Code(s): Z95.1 - Presence of aortocoronary bypass graft (4) Coronary artery disease: Status: Acute Qualifiers: Coronary Disease-Associated Artery/Lesion type: circle artery [place] vs. transplanted heart: circle heart Associated angina: without angina Qualified Code(s): I25.10 - Atherosclerotic heart disease of [place] coronary artery without angina pectoris Category: Medical Code(s): I25.10 - Atherosclerotic heart disease of circle coronary artery without angina pectoris Plan 1. Plan after examining the patient's lab data showing increased troponin. That correlates with his history of angina becoming unstable requiring more nitroglycerin over the past 2 weeks. Do feel that the patient needs to be admitted and reevaluated by cardiology in the morning.. Will continue to monitor his labs tonight making sure troponin does not increase or there is any significant changes in any chest pain versus any EKG changes. Have applied a nitroglycerin patch to continue nitroglycerin on a steady state of relief. As he noted that taking his nitroglycerin did relieve the pain he was just having to take more and more nitroglycerin Noting his medication he is on 2 for angina. But with his long history of coronary artery bypass grafting and more than 10 stents.. And with this change in symptoms evaluation is needed so hospitalization was required..
[2024-12-16 00:56] LABS: Troponin I 0.16 ng/ml (0.00-0.034)
[2024-12-16] MEDS: NITROGLYCERIN 1 GM OINTMENT TD ×2 (02:05→10:43)
[2024-12-16] MEDS: LACTATED RINGERS 1000ML 1,000 ML 75 ML IV (02:05)
[2024-12-16] MEDS: PANTOPRAZOLE 40MG TABLET 40 MG PO ×2 (02:05→21:27)
[2024-12-16] MEDS: POTASSIUM CHLORIDE 20MEQ TAB 40 MEQ PO ×2 (03:37→06:44)
[2024-12-16 04:21] LABS: HIV Combo NEGATIVE (Negative)
[2024-12-16 04:26] LABS: Hepatitis C Ab Qual. W/ RFX NEGATIVE (Negative)
--- NOTE | 2024-12-16 05:36 | CA_ITS ---
APPROVED REPORT EXAM: Limited 2D Echocardiogram Tapper Hand: Jade Chua CRT Ht: 5 ft 6 in Wt: 180lbs BSA: 1.91 BP: 110/74 mmHg Indications: NSTEMI, CP, CABG, STENTS, ECHO 1--24 EF 50%, HTN, HLD M-Mode Dimensions RVDd 2.74 cm (0.9-2.6) LA Diam 3.86 cm (1.9-4.0) LVDd 5.78 cm (3.5-5.7) LVDs 4.43 cm (3.5-5.7) IVSd 1.46 cm (0.6-1.1) PWd 0.57 cm (0.6-1.1) EF (Teich) 46.10% FS 23.40% EDV (Teich) 165.20 mL ESV (Teich) 89.10 mL Other Information Study Quality: Fair Conclusion This is a limited TTE to evaluate for LV systolic function. Limited windows are obtained. The left ventricle is normal in size. There is increased LV wall thickness. There is mild reduction global LV systolic function. There is moderate hypokinesis of the basal septal and inferior septal LV baptiste. LVEF is 40-45%. Electronically signed by : Lori Meraz MD 12/18/2024 09:50:06
--- NOTE | 2024-12-16 05:41 | CT_ITS ---
FINAL REPORT TECHNIQUE: The patient was injected with IV contrast. Axial images were obtained through the chest in a PE protocol. 3-D reconstruction images were also performed. Individualized dose reduction techniques using automated exposure control or adjustment of the MA and/or KV according to patient's size were employed. CLINICAL HISTORY: r/o PE and AAA/disection COMPARISON: 12/01/2023 FINDINGS: Streak artifact is noted over the anterior portion of the chest secondary to median sternotomy wires. The patient has undergone a prior CABG procedure. Mediastinal vasculature is adequately opacified. No pulmonary artery filling defects are identified to suggest PE. There is no aortic dissection. There is no axillary adenopathy. There is no hilar or mediastinal adenopathy. The heart size is normal. There is no pericardial or pleural effusion. Limited images of the upper abdomen are remarkable for gallstones in the gallbladder. No suspicious infiltrate or nodule is identified. Mild scarring is noted in the lung bases bilaterally. IMPRESSION: No pulmonary embolus or dissection. Gallstones are present in the gallbladder. Reviewed, Interpreted and Dictated by Walter Ayala MD Transcribed by Kacey Connor Authenticated and [facility]
[2024-12-16] MEDS: HEPARIN SODIUM 5,000 UNIT/ML VIAL 5000 UNIT SUBCUT ×2 (06:44→21:28)
[2024-12-16] MEDS: SODIUM CHLORIDE 0.9% 10ML SYR (RAD ONLY) 10 ML IV (07:32)
[2024-12-16] MEDS: IOPAMIDOL-370 (76%);100ML BOTTLE 85 ML IV ×2 (07:32→16:57)
[2024-12-16] MEDS: 0.9 % SODIUM CHLORIDE 50 ML VIAL IV (07:32)
--- NOTE | 2024-12-16 08:25 | HMH.PHAINT1 ---
Pharmacy Intervention Comments: home medication list verified using list from outpatient pharmacy and pt interview
[2024-12-16] MEDS: CLOPIDOGREL 75MG TAB 75 MG PO (08:28)
[2024-12-16] MEDS: SACUBITRIL/VALSARTAN 24-26MG TABLET 1 EACH PO ×2 (08:28→21:27)
[2024-12-16] MEDS: CARVEDILOL 12.5MG TABLET 12.5 MG PO (08:28)
[2024-12-16] MEDS: ASPIRIN EC 81MG TABLET 81 MG PO (08:28)
[2024-12-16 08:38] LABS: Basophils % 0.5 % (0.1-2.0); Eosinophils # 0.1 K/mm3 (0.0-0.4); Eosinophils % 2.4 % (0.1-12.0); Hemoglobin 13.1 g/dL (14.1-18.0); Lymphocytes # 1.1 K/mm3 (0.7-4.5); Mean Corpuscular HGB Conc 33.6 g/dL (31.8-35.4); Mean Corpuscular Hemoglobin 30.8 pg (27.0-31.2); Mean Corpuscular Volume 91.8 fl (80-94); Mean Platelet Volume 10.2 fl (7.4-10.4); Monocytes # 0.6 K/mm3 (0.1-1.0); Neutrophils # 3.7 K/mm3 (1.8-7.8); Neutrophils % 66.9 % (37.0-80.0); Platelet Count 171 K/mm3 (142-424); Red Blood Count 4.25 M/mm3 (4.60-6.20); Red Cell Distribution Width 13.1 % (11.5-17.5); White Blood Count 5.5 K/mm3 (4.8-10.8)
[2024-12-16 09:09] LABS: Albumin Level 3.7 g/dl (3.5-5.0); Chloride 105 mmol/L (98-107); Sodium 139 mmol/L (136-145)
[2024-12-16 09:10] LABS: Potassium 4.1 mmoL/L (3.5-5.1)
[2024-12-16 09:12] LABS: Alanine Aminotransferase 21 U/L (12-78); Alkaline Phosphatase 61 U/L (38-126); Anion Gap 15.1 mEq/L (5-15); Aspartate Amino Transferase 34 U/L (17-59); Bilirubin,Total 0.8 mg/dl (0.2-1.3); Blood Urea Nitrogen 26 mg/dl (9-20); Carbon Dioxide 23 mmol/L (22.0-30.0); Creatinine Clearance Estimated 79 mL/min (50-200); Estimated Glomerular Filt Rate 83 ml/min (>60); GFR (African American) 101 ML/MIN (>60)
[2024-12-16 09:13] LABS: Albumin/Globulin Ratio 1.4 (1.1-1.8); Calcium 9.4 mg/dl (8.4-10.2); Globulin 2.6 g/dL (1.3-3.2); Glucose 97 mg/dl (74-100); Magnesium 1.9 mg/dl (1.6-2.3); Total Protein,Serum 6.3 g/dl (6.3-8.2)
[2024-12-16] MEDS: MAGNESIUM SULFATE IN WATER 2 GM/50 ML PIGGYBACK IV (10:43)
--- NOTE | 2024-12-16 10:43 | EXP.CARD.CON ---
History of Present Illness History of Present Illness Consult date: 12/16/24 Requesting physician: Jas Rendon Consult reason: chest pain Chief complaint: chest pain History of present illness: 69-year-old white male established patient of our office with a history of CAD status post CABG, stenting 2023, EF 50, AAA 4.0. Last seen in the office in June in stable condition. Patient typically works at [employer] without symptoms. We are consulted for NSTEMI. Patient presented to the emergency room last night complaining of 2 weeks of worsening episodic chest discomfort which can occur with rest or activity but seems to be improved with sublingual nitroglycerin which she is taking several times per day. He describes the pain as substernal discomfort with radiation to his left arm not associated with shortness diaphoresis or nausea. In the ER D-dimer was elevated at 0.78 but I do not see a CTA. Creatinine 1.4 which appears to be up slightly from baseline of 1.0, troponins flat at 0.16 x 3, chest x-ray clear, BP was 180s on arrival. Heart rate and oxygen normal. EKG right bundle branch block with inferior Q waves-no change since last year. This morning is stable in NAD and denies CP episodes. No events since admission. [facility] Disclaimer: The information contained in this section may have been updated after the patient was seen, as this information can be updated by other users. Medical History Abnormal electrocardiogram [ECG] [EKG] Acute non-ST elevation myocardial infarction (NSTEMI) CHF (congestive heart failure) Hyperlipidemia Hypertension Dizziness Crescendo angina Coronary artery disease Acute hypokalemia Acute non-ST elevation myocardial infarction (NSTEMI) Accelerated hypertension Prostate cancer Pharyngitis Stable angina RBBB Angina at rest Chest pain due to coronary artery disease Chest pain Surgical History Hx of CABG Social History Smoking Status: Never smoker second hand exposure: No alcohol intake: never substance use type: denies use current occupational status: employed Travel in the last 8 weeks: None adopted: No foster care: No household members: family housing: house lives independently: Yes marital status: service: No mcfp: No 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 current occupational exposures/hazards: No caffeine: Yes Have you lived/traveled outside US in past 30 days?: No Contact w/someone who lives/traveled outside US past 30 days?: No Exposure to someone with infectious disease in past 14 days?: No Do you have a fever (greater than 100.4 F or 38 C)?: No Have you tested positive for COVID-19: No Exposed to someone with COVID-19 in past 14 days?: No Do you have a sore throat?: No Do you have a cough?: No Do you have any weakness?: No Are you experiencing any nausea/vomitting?: No Do you have any diarrhea?: No Are you experiencing any unusual bleeding?: No Do you have any muscle aches/pain?: No Do you have any abdominal pain?: No Are you experiencing loss of taste or smell?: No Review of Systems Constitutional Constitutional: Denies fatigue and Denies weakness Eyes Eyes: Denies loss of vision ENT Ears, Nose, Mouth, and Throat: Denies hearing loss *Cardiovascular Cardiovascular: Reports chest pain and Denies dyspnea *Respiratory Respiratory: Denies cough and Denies dyspnea *Gastrointestinal Gastrointestinal: Denies change in stool character, Denies nausea and Denies vomiting *Genitourinary Genitourinary: Denies difficulty urinating *Musculoskeletal Musculoskeletal: Denies muscle weakness Integumentary/Breasts Skin/Breast: Denies changing lesions *Neurologic Neurologic: Reports as per HPI, Denies loss of vision and Denies weakness Endocrine Endocrine: Denies fatigue Exam Data for Last 24 hours Vital signs and Labs for Last 24 Hours: Temp Pulse Resp BP Pulse Ox O2 Del Method 98 F 70 18 173/87 H 98 Room Air 12/16/24 07:36 12/16/24 08:00 12/16/24 07:36 12/16/24 07:36 12/16/24 07:36 12/16/24 07:36 Laboratory Results - last 24 hr 12/15/24 18:22: WBC 6.3, RBC 4.17 L, Hgb 12.7 L, Hct 37.9 L, MCV 90.9, MCH 30.5, MCHC 33.5, RDW 13.0, Plt Count 213, MPV 10.2, Neut % (Auto) 66.7, Lymph % (Auto) 20.9, [place] % (Auto) 10.0 H, Eos % (Auto) 1.8, Baso % (Auto) 0.3, Neut # (Auto) 4.2, Lymph # (Auto) 1.3, [place] # (Auto) 0.6, Eos # (Auto) 0.1, Baso # (Auto) 0.0, D-Dimer 0.78 H, Sodium 140, Potassium 3.2 L, Chloride 103, Carbon Dioxide 28, Anion Gap 12.2, BUN 33 H, Creatinine 1.40 H, Estimated Creat Clear 54, Estimated GFR 50 L, Est GFR ( Amer) 61, Glucose 101 H, Calcium 9.6, Total Bilirubin 0.4, AST 36, ALT 23, Alkaline Phosphatase 72, Troponin I 0.16 H, Total Protein 7.2, Albumin 4.4, Globulin 2.8, Albumin/Globulin Ratio 1.6, HCV Ab SALINA w/Rflx PCR Qn Negative, HIV Ag/Ab Combo Qual Negative 12/15/24 22:05: Troponin I 0.16 H 12/16/24 00:25: Troponin I 0.16 H 12/16/24 08:30: WBC 5.5, RBC 4.25 L, Hgb 13.1 L, Hct 39.0 L, MCV 91.8, MCH 30.8, MCHC 33.6, RDW 13.1, Plt Count 171, MPV 10.2, Neut % (Auto) 66.9, Lymph % (Auto) 19.0, [place] % (Auto) 11.0 H, Eos % (Auto) 2.4, Baso % (Auto) 0.5, Neut # (Auto) 3.7, Lymph # (Auto) 1.1, [place] # (Auto) 0.6, Eos # (Auto) 0.1, Baso # (Auto) 0.0, Sodium 139, Potassium 4.1 D, Chloride 105, Carbon Dioxide 23, Anion Gap 15.1 H, BUN 26 H, Creatinine 0.90 D, Estimated Creat Clear 79, Estimated GFR 83, Est GFR ( Amer) 101 D, Glucose 97, Calcium 9.4, Magnesium 1.9, Total Bilirubin 0.8, AST 34, ALT 21, Alkaline Phosphatase 61, Total Protein 6.3, Albumin 3.7 D, Globulin 2.6, Albumin/Globulin Ratio 1.4 I & O for Last 24 hours: Intake & Output 12/13/24 12/14/24 12/15/24 12/16/24 23:59 23:59 23:59 23:59 Output Total 450 / 450 Balance -450 / -450 Weight 180 lb 180 lb Constitutional Constitutional: no acute distress and cooperative *Routine HEENT Exam Eye: Present PERRL *Routine Respiratory Exam Respiratory: Present CTA bilaterally; Absent accessory muscle use, wheezes or crackles *Routine Cardiovascular Exam Cardiovascular: Present RRR, Normal S1 and Normal S2; Absent murmur, gallop or rubs *Routine Abdominal Exam Abdominal: Present soft; Absent tenderness *Routine Extremities Exam Extremities: Present pulses intact; Absent cyanosis or edema *Routine Skin Exam Skin: Present intact; Absent erythema or wounds *Routine Neurological Exam Neurological: Present alert and oriented X3 Routine Psychiatric Exam Psychiatric: Present cooperative Meds Home Medications and Allergies Home Medications ?Medication ?Instructions ?Recorded ?Confirmed ?Type aspirin 81 mg tablet,delayed 81 mg PO DAILY 12/28/17 12/16/24 History release (Adult Low Dose Aspirin) hydrochlorothiazide 25 mg tablet 25 mg PO DAILY 12/28/17 12/16/24 History nitroglycerin 0.4 mg sublingual 0.4 mg sublingual Q5M PRN Chest 12/28/17 12/16/24 History tablet (Nitrostat) Pain ranolazine 1,000 mg 1,000 mg PO BID 12/28/17 12/16/24 History tablet,extended release,12 hr (Ranexa) clopidogrel 75 mg tablet 75 mg PO DAILY 05/13/21 12/16/24 History dapagliflozin propanediol 10 mg 10 mg PO DAILY 11/29/23 12/16/24 History tablet (Farxiga) sacubitril 24 mg-valsartan 26 mg 1 tab PO BID 11/29/23 12/16/24 History tablet (Entresto) carvedilol 12.5 mg tablet 6.25 mg PO BID 12/01/23 12/16/24 History clonidine HCl 0.1 mg tablet 1 mg PO DAILYP PRN Blood Pressure 12/01/23 12/16/24 History rosuvastatin 20 mg tablet 20 mg PO DAILY 12/01/23 12/16/24 History isosorbide mononitrate 60 mg 60 mg PO HS 03/07/24 12/16/24 History tablet,extended release 24 hr New Prescriptions to Start Prescriptions: Allergies Allergy/AdvReac Type Severity Reaction Status Date / Time morphine Allergy Intermediate HIVES,SWEAT Verified 07/25/24 09:11 ING Assessment and Plan *Assessment and plan (1) Coronary artery disease: Status: Acute Qualifiers: Associated angina: without angina Coronary Disease-Associated Artery/Lesion type: [place] artery [place] vs. transplanted heart: [place] heart Qualified Code(s): I25.10 - Atherosclerotic heart disease of [place] coronary artery without angina pectoris Category: Medical Code(s): I25.10 - Atherosclerotic heart disease of [place] coronary artery without angina pectoris (2) Hypertension: Status: Acute Qualifiers: Hypertension type: primary hypertension Qualified Code(s): I10 - Essential (primary) hypertension Category: Medical Code(s): I10 - Essential (primary) hypertension (3) Hyperlipidemia: Status: Acute Qualifiers: Hyperlipidemia type: mixed hyperlipidemia Qualified Code(s): E78.2 - Mixed hyperlipidemia Category: Medical Code(s): E78.5 - Hyperlipidemia, unspecified Plan CAD with class 3-4 angina and chronic Trop elevation - known CAD w/hx of CABG and ROBERTO - last 11/2023 - trop are flat and EKG is unchanged, this does not appear to be NSTEMI - resume DAPT - check ECHO and CTA Chest - pt already on Ranexa 1,000 q12 and Imdur 90qday. Will increase Coreg and Imdur - consider repeat LHC this admission MARCELLA - Cr 1.4 on arrival - now 0.9 after fluids AAA - 4.0 on ECHO last year - will check CTA Elevated D-Dimer with CP - check ECHO and CTA *CTA Negative for PE. Pt asymptomatic at rest. We discussed his chronic trop elevation, ongoing symptoms, and med management vs repeat LHC. Pt prefers to repeat LHC which is reasonable given his history. I've discussed with Dr. Person who is covering interventions today and is agreeable.
[2024-12-16] MEDS: ISOSORBIDE MONO 60MG TAB.ER.24H 90 MG PO (11:36)
[2024-12-16] MEDS: RANOLAZINE 500MG ER TABLET 1000 MG PO ×2 (11:36→21:27)
--- NOTE | 2024-12-16 14:22 | IR_ITS ---
APPROVED REPORT Patient Location: Inpatient Exec. Creative Director: MARTY Dimas RT (R) PROCEDURES 1. Left heart catheterization 2. Selective coronary arteriography 3. Left ventriculography 4. Saphenous vein graft arteriography 5. Left internal mammary artery arteriography 6. PTCA/stent of the saphenous vein graft to the right coronary artery INDICATION 1. Unstable angina, 2. Coronary arteries, 3. Coronary artery bypass graft SCAI INDICATION Patient is 69-year-old white male with known severe coronary artery disease who presented with increasing pressure and tightness in the chest and increasing shortness of breath. Increased nitroglycerin use. Known coronary artery disease. Secondary to this referred directly for left heart catheterization Informed consent was obtained prior to the procedure. COMPLICATIONS NONE Estimated Blood Loss: LESS THAN 10 ML TECHNIQUE One percent lidocaine used to anesthetize the right groin. The right femoral artery was accessed via the Seldinger technique and a 5 Chinese sheath was placed in the right femoral artery. A JL 4, JR4 catheter were used to perform left heart catheterization, left ventriculogram selective coronary angiography as well as selective engagement of the 2 vein grafts and the left internal mammary artery. I also used a Naomy right #4 guide catheter. This was after upsized to a 6 Chinese sheath. At the end of the procedure the patient was transferred to the postop holding area in stable condition for sheath removal. ANGIOGRAPHIC RESULTS The left main artery 100% occluded in its midportion The left anterior descending artery 100% occluded The circumflex artery 100% occluded The right coronary artery 100% occluded in its proximal portion The MOE ventriculogram reveals Mild reduction in left ventricular systolic function at 40 to 45% The left ventricular end-diastolic pressure 6 Saphenous vein graft to the first and second obtuse marginal branches was engaged and injected. Saphenous vein graft had a stent in its proximal portion. The stent was free of disease. There was eccentric 60% stenosis in the midportion of the graft. Normal touchdown to the first obtuse marginal branch with normal skip to the second obtuse marginal branch. At the second touchdown site, there was 40% stenosis. There was normal flow into both obtuse marginal branches Saphenous vein graft to the right coronary artery was engaged and injected. Saphenous vein graft had stents in the proximal/midportion. There was an eccentric in-stent 99% stenosis in the proximal portion of the graft. There was normal MAGGIE-3 flow to the distal coronary artery after the touchdown site. Left internal mammary artery was injected. Left internal mammary artery was engaged and patent. Subtotal occlusion after the touchdown site in the distal left anterior descending with MAGGIE-3 flow to a small portion of the left anterior descending at the apex. After diagnostic cardiac catheterization was performed a 5 Chinese she was changed for 6 Chinese sheath. Heparin was given. ACT greater than 400. I went in with a guide catheter the saphenous vein graft to the right coronary artery. I wired this with a Choice PT wire. Primary stenting was done with a 3.5 x 12 mm Edgar frontier drug-eluting stent. This was taken up to 22 kiley for 10 seconds. Resulted in 0% residual stenosis. Right, retrograde femoral arteriogram performed. Sheath placed in the right common femoral artery. Mynx device deployed without difficulty IMPRESSION 1. 100% occlusion of the left main coronary artery 2. 100% occlusion of the proximal large dominant right coronary artery 3. Patent saphenous vein graft to the first obtuse marginal branch with skip to the second obtuse marginal branch. Patent stent in the proximal portion of the saphenous vein graft with moderate diffuse disease throughout the vein graft itself 4. Patent saphenous vein graft to the distal right coronary artery. Critical in-stent stenosis noted in the proximal portion of the vein graft 5. Patent left internal mammary artery to left anterior descending with severe distal disease and subtotal occlusion after the touchdown site in the left anterior descending itself prior to its wraparound the apex 6. Mild reduction in left ventricular systolic function 7. Normal left ventricular end-diastolic pressure 8. Successful angioplasty and stenting of the proximal saphenous vein graft to the right coronary artery with an [place] frontier drug-eluting stent resulting in 0% residual stenosis 9. Successful placement of a Mynx device in the right common femoral artery PLAN 1. Patient will continue with aggressive medical therapy. The disease in the distal left anterior descending with a subtotal occlusion is old. That was seen a year ago. He provides a very minimal flow to myocardium at the apex. There is MAGGIE-3 flow. Saphenous vein graft to the circumflex is open and the stent that was placed a year ago was patent in the proximal portion of the vein graft. The saphenous vein graft to the right coronary artery had stents throughout the proximal/mid vessel with critical in-stent stenosis noted in the proximal portion of the vein graft. That has now been open. He has full revascularization. Left ventricular function is improved from a year ago. It is now 40 to 45%. His end-diastolic pressure is normal. Plavix 600 mg x 1 now then 75 mg daily. Aggressive risk factor modification. May benefit from Xarelto 2.5 mg twice daily in addition to Plavix. Follow-up in cardiology clinic 1 to 2 weeks after discharge Electronically signed by : Armond Person MD 12/16/2024 16:53:41
[2024-12-16 15:17] LABS: Chloride 105 mmol/L (98-107); Potassium 4.2 mmoL/L (3.5-5.1); Sodium 139 mmol/L (136-145)
[2024-12-16 15:20] LABS: Anion Gap 12.2 mEq/L (5-15); Blood Urea Nitrogen 24 mg/dl (9-20); Calcium 9.4 mg/dl (8.4-10.2); Carbon Dioxide 26 mmol/L (22.0-30.0); Creatinine Clearance Estimated 79 mL/min (50-200); Estimated Glomerular Filt Rate 83 ml/min (>60); GFR (African American) 101 ML/MIN (>60); Glucose 90 mg/dl (74-100)
[2024-12-16] MEDS: MIDAZOLAM HCL 1MG/ML 5ML VIAL 1 MG IV (16:12)
[2024-12-16] MEDS: LIDOCAINE 1% 10ML MDV 20 ML IJ (16:12)
[2024-12-16] MEDS: diphenhydrAMINE 50MG/ML VIAL 50 MG IV (16:13)
[2024-12-16] MEDS: FENTANYL 100MCG/2ML VIAL 50 MCG IV (16:13)
[2024-12-16] MEDS: HEPARIN 1,000 UNITS/ML 10ML VIAL (CATH LAB) 10000 UNIT IV (16:38)
[2024-12-16] MEDS: CLOPIDOGREL 300MG TABLET 600 MG PO (16:57)
[2024-12-16 16:59] LABS: CATHL Activated Clotting Time > 400 SEC (74-125)
--- NOTE | 2024-12-16 18:32 | EXP.PN ---
Subjective *Date: 12/16/24 *Time: 23:28 Interval history: Patient in good spirits this morning, no chest pains, shortness of breath. Cardiology will pursue a LHC today. Exam Data for Last 24 hours Vital signs and Labs for Last 24 Hours: Temp Pulse Resp BP Pulse Ox O2 Del Method 98.1 F 63 16 168/91 H 98 Room Air 12/16/24 12:00 12/16/24 17:00 12/16/24 17:00 12/16/24 17:00 12/16/24 17:00 12/16/24 17:00 Laboratory Results - last 24 hr 12/15/24 18:22: WBC 6.3, RBC 4.17 L, Hgb 12.7 L, Hct 37.9 L, MCV 90.9, MCH 30.5, MCHC 33.5, RDW 13.0, Plt Count 213, MPV 10.2, Neut % (Auto) 66.7, Lymph % (Auto) 20.9, [place] % (Auto) 10.0 H, Eos % (Auto) 1.8, Baso % (Auto) 0.3, Neut # (Auto) 4.2, Lymph # (Auto) 1.3, [place] # (Auto) 0.6, Eos # (Auto) 0.1, Baso # (Auto) 0.0, D-Dimer 0.78 H, Sodium 140, Potassium 3.2 L, Chloride 103, Carbon Dioxide 28, Anion Gap 12.2, BUN 33 H, Creatinine 1.40 H, Estimated Creat Clear 54, Estimated GFR 50 L, Est GFR ( Amer) 61, Glucose 101 H, Calcium 9.6, Total Bilirubin 0.4, AST 36, ALT 23, Alkaline Phosphatase 72, Troponin I 0.16 H, Total Protein 7.2, Albumin 4.4, Globulin 2.8, Albumin/Globulin Ratio 1.6, HCV Ab SALINA w/Rflx PCR Qn Negative, HIV Ag/Ab Combo Qual Negative 12/15/24 22:05: Troponin I 0.16 H 12/16/24 00:25: Troponin I 0.16 H 12/16/24 08:30: WBC 5.5, RBC 4.25 L, Hgb 13.1 L, Hct 39.0 L, MCV 91.8, MCH 30.8, MCHC 33.6, RDW 13.1, Plt Count 171, MPV 10.2, Neut % (Auto) 66.9, Lymph % (Auto) 19.0, [place] % (Auto) 11.0 H, Eos % (Auto) 2.4, Baso % (Auto) 0.5, Neut # (Auto) 3.7, Lymph # (Auto) 1.1, [place] # (Auto) 0.6, Eos # (Auto) 0.1, Baso # (Auto) 0.0, Sodium 139, Potassium 4.1 D, Chloride 105, Carbon Dioxide 23, Anion Gap 15.1 H, BUN 26 H, Creatinine 0.90 D, Estimated Creat Clear 79, Estimated GFR 83, Est GFR ( Amer) 101 D, Glucose 97, Calcium 9.4, Magnesium 1.9, Total Bilirubin 0.8, AST 34, ALT 21, Alkaline Phosphatase 61, Total Protein 6.3, Albumin 3.7 D, Globulin 2.6, Albumin/Globulin Ratio 1.4 12/16/24 14:48: Sodium 139, Potassium 4.2, Chloride 105, Carbon Dioxide 26, Anion Gap 12.2, BUN 24 H, Creatinine 0.90, Estimated Creat Clear 79, Estimated GFR 83, Est GFR ( Amer) 101, Glucose 90, Calcium 9.4 12/16/24 17:27: Activated Clotting Time > 400 H* Temp Pulse Resp BP Pulse Ox O2 Del Method 98 F 70 18 173/87 H 98 Room Air 12/16/24 07:36 12/16/24 08:00 12/16/24 07:36 12/16/24 07:36 12/16/24 07:36 12/16/24 07:36 Laboratory Results - last 24 hr 12/15/24 18:22: WBC 6.3, RBC 4.17 L, Hgb 12.7 L, Hct 37.9 L, MCV 90.9, MCH 30.5, MCHC 33.5, RDW 13.0, Plt Count 213, MPV 10.2, Neut % (Auto) 66.7, Lymph % (Auto) 20.9, [place] % (Auto) 10.0 H, Eos % (Auto) 1.8, Baso % (Auto) 0.3, Neut # (Auto) 4.2, Lymph # (Auto) 1.3, [place] # (Auto) 0.6, Eos # (Auto) 0.1, Baso # (Auto) 0.0, D-Dimer 0.78 H, Sodium 140, Potassium 3.2 L, Chloride 103, Carbon Dioxide 28, Anion Gap 12.2, BUN 33 H, Creatinine 1.40 H, Estimated Creat Clear 54, Estimated GFR 50 L, Est GFR ( Amer) 61, Glucose 101 H, Calcium 9.6, Total Bilirubin 0.4, AST 36, ALT 23, Alkaline Phosphatase 72, Troponin I 0.16 H, Total Protein 7.2, Albumin 4.4, Globulin 2.8, Albumin/Globulin Ratio 1.6, HCV Ab SALINA w/Rflx PCR Qn Negative, HIV Ag/Ab Combo Qual Negative 12/15/24 22:05: Troponin I 0.16 H 12/16/24 00:25: Troponin I 0.16 H 12/16/24 08:30: WBC 5.5, RBC 4.25 L, Hgb 13.1 L, Hct 39.0 L, MCV 91.8, MCH 30.8, MCHC 33.6, RDW 13.1, Plt Count 171, MPV 10.2, Neut % (Auto) 66.9, Lymph % (Auto) 19.0, [place] % (Auto) 11.0 H, Eos % (Auto) 2.4, Baso % (Auto) 0.5, Neut # (Auto) 3.7, Lymph # (Auto) 1.1, [place] # (Auto) 0.6, Eos # (Auto) 0.1, Baso # (Auto) 0.0, Sodium 139, Potassium 4.1 D, Chloride 105, Carbon Dioxide 23, Anion Gap 15.1 H, BUN 26 H, Creatinine 0.90 D, Estimated Creat Clear 79, Estimated GFR 83, Est GFR ( Amer) 101 D, Glucose 97, Calcium 9.4, Magnesium 1.9, Total Bilirubin 0.8, AST 34, ALT 21, Alkaline Phosphatase 61, Total Protein 6.3, Albumin 3.7 D, Globulin 2.6, Albumin/Globulin Ratio 1.4 I & O for Last 24 hours: Intake & Output 12/13/24 12/14/24 12/15/24 12/16/24 23:59 23:59 23:59 23:59 Output Total 750 / 750 Balance -750 / -750 Weight 81.647 kg 81.647 kg Intake & Output 12/13/24 12/14/24 12/15/24 12/16/24 23:59 23:59 23:59 23:59 Output Total 450 / 450 Balance -450 / -450 Weight 180 lb 180 lb Constitutional Constitutional: no acute distress and cooperative *Routine HEENT Exam Eye: Present PERRL *Routine Respiratory Exam Respiratory: Present CTA bilaterally; Absent accessory muscle use, wheezes or crackles *Routine Cardiovascular Exam Cardiovascular: Present RRR, Normal S1 and Normal S2; Absent murmur, gallop or rubs *Routine Abdominal Exam Abdominal: Present soft; Absent tenderness *Routine Extremities Exam Extremities: Present pulses intact; Absent cyanosis or edema *Routine Skin Exam Skin: Present intact; Absent erythema or wounds *Routine Neurological Exam Neurological: Present alert and oriented X3 Routine Psychiatric Exam Psychiatric: Present cooperative Assessment and Plan *Assessment and plan (1) Coronary artery disease: Status: Acute Qualifiers: Associated angina: without angina Coronary Disease-Associated Artery/Lesion type: [place] artery [place] vs. transplanted heart: [place] heart Qualified Code(s): I25.10 - Atherosclerotic heart disease of [place] coronary artery without angina pectoris Category: Medical Code(s): I25.10 - Atherosclerotic heart disease of [place] coronary artery without angina pectoris (2) Hypertension: Status: Acute Qualifiers: Hypertension type: primary hypertension Qualified Code(s): I10 - Essential (primary) hypertension Category: Medical Code(s): I10 - Essential (primary) hypertension (3) Hyperlipidemia: Status: Acute Qualifiers: Hyperlipidemia type: mixed hyperlipidemia Qualified Code(s): E78.2 - Mixed hyperlipidemia Category: Medical Code(s): E78.5 - Hyperlipidemia, unspecified Plan John Bo is a 69-year-old male with a history of CAD, CABG he was admitted for chest pain and NSTEMI. #NSTEMI #History of CABG, CAD s/p stents #History of HFrEF #Hypertension ? S/p PCI on 12/16/2024 with angioplasty and ROBERTO x 1 of saphenous vein graft. ? Aspirin 81 mg, Plavix 75 mg, atorvastatin 80 mg, Coreg 25 mg twice daily. Plavix load given. ? Continue ranolazine, Imdur, Entresto. Hold hydrochlorothiazide as BP stable. ? Cardiology following, assisting with care. ? Follow-up repeat A1c, lipid panel, TSH. ? Follow-up ECHO. ? Given complex cardiac history, patient will be monitored overnight on cardiac telemetry. Anticipate discharge in the morning. #MARCELLA ? Initial creatinine 1.4, improved to 0.90 after fluid resuscitation. Full code DVT prophylaxis: Lovenox 40 mg
[2024-12-16] MEDS: CARVEDILOL 25MG TABLET 25 MG PO (21:27)
[2024-12-16] MEDS: ATORVASTATIN 40MG TABLET 80 MG PO (21:27)
--- NOTE | 2024-12-16 22:25 | EXP.PN ---
Subjective *Date: 12/16/24 *Time: 22:25 Exam Data for Last 24 hours Vital signs and Labs for Last 24 Hours: Temp Pulse Resp BP Pulse Ox O2 Del Method 97.4 F L 61 16 140/80 98 Room Air 12/16/24 17:45 12/16/24 19:00 12/16/24 19:00 12/16/24 19:00 12/16/24 19:00 12/16/24 19:00 Laboratory Results - last 24 hr 12/15/24 18:22: HCV Ab SALINA w/Rflx PCR Qn Negative, HIV Ag/Ab Combo Qual Negative 12/15/24 22:05: Troponin I 0.16 H 12/16/24 00:25: Troponin I 0.16 H 12/16/24 08:30: WBC 5.5, RBC 4.25 L, Hgb 13.1 L, Hct 39.0 L, MCV 91.8, MCH 30.8, MCHC 33.6, RDW 13.1, Plt Count 171, MPV 10.2, Neut % (Auto) 66.9, Lymph % (Auto) 19.0, [place] % (Auto) 11.0 H, Eos % (Auto) 2.4, Baso % (Auto) 0.5, Neut # (Auto) 3.7, Lymph # (Auto) 1.1, [place] # (Auto) 0.6, Eos # (Auto) 0.1, Baso # (Auto) 0.0, Sodium 139, Potassium 4.1 D, Chloride 105, Carbon Dioxide 23, Anion Gap 15.1 H, BUN 26 H, Creatinine 0.90 D, Estimated Creat Clear 79, Estimated GFR 83, Est GFR ( Amer) 101 D, Glucose 97, Calcium 9.4, Magnesium 1.9, Total Bilirubin 0.8, AST 34, ALT 21, Alkaline Phosphatase 61, Total Protein 6.3, Albumin 3.7 D, Globulin 2.6, Albumin/Globulin Ratio 1.4 12/16/24 14:48: Sodium 139, Potassium 4.2, Chloride 105, Carbon Dioxide 26, Anion Gap 12.2, BUN 24 H, Creatinine 0.90, Estimated Creat Clear 79, Estimated GFR 83, Est GFR ( Amer) 101, Glucose 90, Calcium 9.4 12/16/24 17:27: Activated Clotting Time > 400 H* I & O for Last 24 hours: Intake & Output 12/13/24 12/14/24 12/15/24 12/16/24 23:59 23:59 23:59 23:59 Output Total 1350 / 1350 Balance -1350 / -1350 Weight 81.647 kg 81.647 kg
[2024-12-17] VITALS: PULSE 75
[2024-12-17 04:00] VITALS: BP 120/71; PULSE 60; PULSE 71; RESP 14; TEMP 36.8; O2SAT 96; BMI 28.2
[2024-12-17 06:43] LABS: Chol/HDL Ratio 4.2 (1-3.5); Cholesterol 139 mg/dl (140-200); HDL Cholesterol 33 mg/dl (40-60); Triglycerides 118 mg/dl (30-150); VLDL Cholesterol 24 mg/dL (0-40)
[2024-12-17 06:54] LABS: Direct LDL Cholesterol 75.64 mg/dL (100-129)
[2024-12-17 07:13] LABS: Hemoglobin A1C 5.9 % (4.0-6.0)
[2024-12-17 07:16] LABS: Thyroid Stimulating Hormone 1.73 uIU/mL (0.465-4.68)
--- NOTE | 2024-12-17 07:41 | P.DS_ITS ---
General Admission date:: 12/15/24 HPI HPI HPI: This patient has had coronary artery bypass Pref grafting and multiple stent. Normally takes about 1 nitroglycerin a week. He continues to work but noticed over the last week or 2 he was taking as many as 5 or 6 a day now. He has come to the emergency room having slightly increased troponin. And was still having chest pain.. Nitroglycerin drip was about ready to be started when the pain disappeared. Evaluation of labs and EKG shows that the patient has had a non-STEMI.. Presently he is having no chest pain on the time of the exam to be admitted upstairs. I have spoken with the ER provider gone over the patient and with a heart score of 8. With the present labs and the patient's history will admit him to be evaluated by Dr. Mcgowan in the morning. The ER provider also did a bedside echo showing some decreased left ventricular ejection fraction. Patient is stable at this time but does need to be admitted and evaluated by cardiovascular. Question whether patient will need recatheterization or adjustment of medications. Hospital Course Hospital Course Hospital Course: John Bo is a 69-year-old male with a history of CAD, CABG he was admitted for chest pain and NSTEMI. #NSTEMI #History of CABG, CAD s/p stents #History of HFrEF #Hypertension ? S/p PCI on 12/16/2024 with angioplasty and ROBERTO x 1 of saphenous vein graft. - Cardiology consulted, assisted with care. Increased Coreg and Imdur dosing. ? Discharged with Aspirin 81 mg, Plavix 75 mg, atorvastatin 80 mg, Coreg 25 mg twice daily, Imdur 90mg. Plavix load given. ? Continue ranolazine, Entresto. Hold hydrochlorothiazide as BP stable. ? A1c, lipid panel, TSH normal. ? ECHO ordered, pending read at this time. - Will follow-up with cardiology within 1 week. #MARCELLA ? Initial creatinine 1.4, improved to 0.90 after fluid resuscitation. Exam Data for Last 24 hours Vital signs and Labs for Last 24 Hours: Temp Pulse Resp BP Pulse Ox O2 Del Method 98.2 F 71 14 120/71 96 Room Air 12/17/24 04:00 12/17/24 04:00 12/17/24 04:00 12/17/24 04:00 12/17/24 04:00 12/17/24 06:38 Laboratory Results - last 24 hr 12/16/24 08:30: WBC 5.5, RBC 4.25 L, Hgb 13.1 L, Hct 39.0 L, MCV 91.8, MCH 30.8, MCHC 33.6, RDW 13.1, Plt Count 171, MPV 10.2, Neut % (Auto) 66.9, Lymph % (Auto) 19.0, [place] % (Auto) 11.0 H, Eos % (Auto) 2.4, Baso % (Auto) 0.5, Neut # (Auto) 3.7, Lymph # (Auto) 1.1, [place] # (Auto) 0.6, Eos # (Auto) 0.1, Baso # (Auto) 0.0, Sodium 139, Potassium 4.1 D, Chloride 105, Carbon Dioxide 23, Anion Gap 15.1 H, BUN 26 H, Creatinine 0.90 D, Estimated Creat Clear 79, Estimated GFR 83, Est GFR ( Amer) 101 D, Glucose 97, Calcium 9.4, Magnesium 1.9, Total B ilirubin 0.8, AST 34, ALT 21, Alkaline Phosphatase 61, Total Protein 6.3, Albumin 3.7 D, Globulin 2.6, Albumin/Globulin Ratio 1.4 12/16/24 14:48: Sodium 139, Potassium 4.2, Chloride 105, Carbon Dioxide 26, Anion Gap 12.2, BUN 24 H, Creatinine 0.90, Estimated Creat Clear 79, Estimated GFR 83, Est GFR ( Amer) 101, Glucose 90, Calcium 9.4 12/16/24 17:27: Activated Clotting Time > 400 H* 12/17/24 06:12: Hemoglobin A1c 5.9, Triglycerides 118, Cholesterol 139 L, VLDL Cholesterol 24, HDL Cholesterol 33 L, Cholesterol/HDL Ratio 4.2 H Temp Pulse Resp BP Pulse Ox O2 Del Method 98 F 70 18 173/87 H 98 Room Air 12/16/24 07:36 12/16/24 08:00 12/16/24 07:36 12/16/24 07:36 12/16/24 07:36 12/16/24 07:36 Laboratory Results - last 24 hr 12/15/24 18:22: WBC 6.3, RBC 4.17 L, Hgb 12.7 L, Hct 37.9 L, MCV 90.9, MCH 30.5, MCHC 33.5, RDW 13.0, Plt Count 213, MPV 10.2, Neut % (Auto) 66.7, Lymph % (Auto) 20.9, [place] % (Auto) 10.0 H, Eos % (Auto) 1.8, Baso % (Auto) 0.3, Neut # (Auto) 4.2, Lymph # (Auto) 1.3, [place] # (Auto) 0.6, Eos # (Auto) 0.1, Baso # (Auto) 0.0, D-Dimer 0.78 H, Sodium 140, Potassium 3.2 L, Chloride 103, Carbon Dioxide 28, Anion Gap 12.2, BUN 33 H, Creatinine 1.40 H, Estimated Creat Clear 54, Estimated GFR 50 L, Est GFR ( Amer) 61, Glucose 101 H, Calcium 9.6, Total Bilirubin 0.4, AST 36, ALT 23, Alkaline Phosphatase 72, Troponin I 0.16 H, Total Protein 7.2, Albumin 4.4, Globulin 2.8, Albumin/Globulin Ratio 1.6, HCV Ab SALINA w/Rflx PCR Qn Negative, HIV Ag/Ab Combo Qual Negative 12/15/24 22:05: Troponin I 0.16 H 12/16/24 00:25: Troponin I 0.16 H 12/16/24 08:30: WBC 5.5, RBC 4.25 L, Hgb 13.1 L, Hct 39.0 L, MCV 91.8, MCH 30.8, MCHC 33.6, RDW 13.1, Plt Count 171, MPV 10.2, Neut % (Auto) 66.9, Lymph % (Auto) 19.0, [place] % (Auto) 11.0 H, Eos % (Auto) 2.4, Baso % (Auto) 0.5, Neut # (Auto) 3.7, Lymph # (Auto) 1.1, [place] # (Auto) 0.6, Eos # (Auto) 0.1, Baso # (Auto) 0.0, Sodium 139, Potassium 4.1 D, Chloride 105, Carbon Dioxide 23, Anion Gap 15.1 H, BUN 26 H, Creatinine 0.90 D, Estimated Creat Clear 79, Estimated GFR 83, Est GFR ( Amer) 101 D, Glucose 97, Calcium 9.4, Magnesium 1.9, Total Gene irubin 0.8, AST 34, ALT 21, Alkaline Phosphatase 61, Total Protein 6.3, Albumin 3.7 D, Globulin 2.6, Albumin/Globulin Ratio 1.4 I & O for Last 24 hours: Intake & Output 12/14/24 12/15/24 12/16/24 12/17/24 23:59 23:59 23:59 23:59 Intake Total 735 / 735 Output Total 1350 / 1350 200 / 200 Balance -1350 / -615 535 / 535 Weight 81.647 kg 81.647 kg 81.647 kg Intake & Output 12/13/24 12/14/24 12/15/24 12/16/24 23:59 23:59 23:59 23:59 Output Total 450 / 450 Balance -450 / -450 Weight 180 lb 180 lb Constitutional Constitutional: no acute distress and cooperative *Routine HEENT Exam Eye: Present PERRL *Routine Respiratory Exam Respiratory: Present CTA bilaterally; Absent accessory muscle use, wheezes or crackles *Routine Cardiovascular Exam Cardiovascular: Present RRR, Normal S1 and Normal S2; Absent murmur, gallop or rubs *Routine Abdominal Exam Abdominal: Present soft; Absent tenderness *Routine Extremities Exam Extremities: Present pulses intact; Absent cyanosis or edema *Routine Skin Exam Skin: Present intact; Absent erythema or wounds *Routine Neurological Exam Neurological: Present alert and oriented X3 Routine Psychiatric Exam Psychiatric: Present cooperative Results Data Completed and Pending Labs on day of discharge: Labs from last 24 hours 12/17/24 12/16/24 12/16/24 06:12 17:27 14:48 WBC RBC Hgb Hct MCV MCH MCHC RDW Plt Count MPV Neut % (Auto) Lymph % (Auto) [place] % (Auto) Eos % (Auto) Baso % (Auto) Neut # (Auto) Lymph # (Auto) [place] # (Auto) Eos # (Auto) Baso # (Auto) Activated Clotting Time > 400 H* Sodium 139 Potassium 4.2 Chloride 105 Carbon Dioxide 26 Anion Gap 12.2 BUN 24 H Creatinine 0.90 Estimated Creat Clear 79 Estimated GFR 83 Est GFR ( Amer) 101 Glucose 90 Hemoglobin A1c 5.9 Calcium 9.4 Magnesium Total Bilirubin AST ALT Alkaline Phosphatase Total Protein Albumin Globulin Albumin/Globulin Ratio Triglycerides 118 Cholesterol 139 L VLDL Cholesterol 24 HDL Cholesterol 33 L Cholesterol/HDL Ratio 4.2 H 12/16/24 08:30 WBC 5.5 RBC 4.25 L Hgb 13.1 L Hct 39.0 L MCV 91.8 MCH 30.8 MCHC 33.6 RDW 13.1 Plt Count 171 MPV 10.2 Neut % (Auto) 66.9 Lymph % (Auto) 19.0 [place] % (Auto) 11.0 H Eos % (Auto) 2.4 Baso % (Auto) 0.5 Neut # (Auto) 3.7 Lymph # (Auto) 1.1 [place] # (Auto) 0.6 Eos # (Auto) 0.1 Baso # (Auto) 0.0 Activated Clotting Time Sodium 139 Potassium 4.1 D Chloride 105 Carbon Dioxide 23 Anion Gap 15.1 H BUN 26 H Creatinine 0.90 D Estimated Creat Clear 79 Estimated GFR 83 Est GFR ( Amer) 101 D Glucose 97 Hemoglobin A1c Calcium 9.4 Magnesium 1.9 Total Bilirubin 0.8 AST 34 ALT 21 Alkaline Phosphatase 61 Total Protein 6.3 Albumin 3.7 D Globulin 2.6 Albumin/Globulin Ratio 1.4 Triglycerides Cholesterol VLDL Cholesterol HDL Cholesterol Cholesterol/HDL Ratio DS: Diagnosis Discharge Diagnosis (1) Coronary artery disease: Status: Acute Code(s): I25.10 - Atherosclerotic heart disease of [place] coronary artery without angina pectoris Qualifiers: Associated angina: without angina Coronary Disease-Associated Artery/Lesion type: [place] artery [place] vs. transplanted heart: [place] heart Qualified Code(s): I25.10 - Atherosclerotic heart disease of [place] coronary artery without angina pectoris (2) Hypertension: Status: Acute Code(s): I10 - Essential (primary) hypertension Qualifiers: Hypertension type: primary hypertension Qualified Code(s): I10 - Essential (primary) hypertension (3) Hyperlipidemia: Status: Acute Code(s): E78.5 - Hyperlipidemia, unspecified Qualifiers: Hyperlipidemia type: mixed hyperlipidemia Qualified Code(s): E78.2 - Mixed hyperlipidemia Meds Home Medications and Allergies Home Medications ?Medication ?Instructions ?Recorded ?Confirmed ?Type aspirin 81 mg tablet,delayed 81 mg PO DAILY 12/28/17 12/23/24 History release (Adult Low Dose Aspirin) nitroglycerin 0.4 mg sublingual 0.4 mg sublingual Q5M PRN Chest 12/28/17 12/23/24 History tablet (Nitrostat) Pain ranolazine 1,000 mg 1,000 mg PO BID 12/28/17 12/23/24 History tablet,extended release,12 hr (Ranexa) dapagliflozin propanediol 10 mg 10 mg PO DAILY 11/29/23 12/23/24 History tablet (Farxiga) sacubitril 24 mg-valsartan 26 mg 1 tab PO BID 11/29/23 12/23/24 History tablet (Entresto) carvedilol 25 mg tablet 25 mg PO BID 30 days #60 tabs 12/17/24 12/23/24 Rx icosapent ethyl 1 gram capsule 2 g (2 x 1 gram) PO BID #120 caps 12/17/24 12/23/24 Rx (Vascepa) isosorbide mononitrate 60 mg 90 mg (1.5 x 60 mg) PO DAILY 30 12/17/24 12/23/24 Rx tablet,extended release 24 hr days #45 tabs rosuvastatin 20 mg tablet 40 mg (2 x 20 mg) PO DAILY 30 days 12/17/24 12/23/24 Rx #60 tabs clonidine HCl 0.1 mg tablet 1 mg (10 x 0.1 mg) PO DAILYP PRN 12/23/24 12/23/24 Rx Blood Pressure #30 tabs prasugrel 10 mg tablet (Effient) 10 mg PO DAILY #36 tabs 12/23/24 12/23/24 Rx New Prescriptions to Start Prescriptions: carvedilol Jas Rendonapent ethyl [Vascepa] Jason Pitts isosorbide mononitrate Jas Rendon rosuvastatin Jason Pitts Allergies Allergy/AdvReac Type Severity Reaction Status Date / Time morphine Allergy Intermediate HIVES,SWEAT Verified 12/23/24 08:52 ING clopidogrel (From Plavix) AdvReac Mild nonresponde Verified 12/23/24 09:29 r Discharge Plan Disposition Patient Disposition: Home, Self-Care Condition: Fair Follow up Plan Follow up with: Mimi Huerta APRN [Nurse Practitioner] - 12/23/24 9:15 am Ten Mendoza MD [Primary Care Provider] - 12/23/24 10:15 am Prescriptions/Medication Reconciliation: New carvedilol 25 mg Tablet 25 mg PO BID 30 Days Qty: 60 0RF isosorbide mononitrate 60 mg Tablet Extended Release 24 Hr 90 mg PO DAILY 30 Days Qty: 45 0RF icosapent ethyl [Vascepa] 1 gram capsule 2 g PO BID Qty: 120 0RF Continued Farxiga 10 mg tablet 10 mg PO DAILY Entresto 24-26 mg tablet 1 tab PO BID Patient Comments: TAKE ONE TABLET BY MOUTH TWICE DAILY aspirin [Adult Low Dose Aspirin] 81 mg tablet,delayed release (DR/EC) 81 mg PO DAILY nitroglycerin [Nitrostat] 0.4 mg tablet, sublingual 0.4 mg SUBLINGUAL Q5M PRN (Reason: Chest Pain) ranolazine [Ranexa] 1,000 mg tablet extended release 12 hr 1,000 mg PO BID Changed rosuvastatin 20 mg tablet 40 mg PO DAILY 30 Days Qty: 60 0RF Discontinued isosorbide mononitrate 60 mg tablet extended release 24 hr 60 mg PO HS hydrochlorothiazide 25 mg tablet 25 mg PO DAILY carvedilol 12.5 mg tablet 6.25 mg PO BID No Action prasugrel [Effient] 10 mg tablet 10 mg PO DAILY Qty: 36 2RF clonidine HCl 0.1 mg tablet 1 mg PO DAILYP PRN (Reason: Blood Pressure) Qty: 30 0RF Problem Reconciliation Problems Reviewed?: Yes Patient Discharge Instructions ACTIVITY: Continue current activity DIET: continue same diet Patient Instructions: DI for Heart Attack, Heart-Healthy Diet, DI for Cardiac Catheterization, DI for Surgical Site Infection Print Language: Hungarian Providers Primary Care Provider: Ten Mendoza Admit Provider: Jas Rendon Attending Provider: Jas Rendon
[2024-12-17 08:00] VITALS: BP 130/75; PULSE 68; PULSE 70; RESP 16; TEMP 36.7; O2SAT 97
[2024-12-17] MEDS: CLOPIDOGREL 75MG TAB 75 MG PO (08:35)
[2024-12-17] MEDS: RANOLAZINE 500MG ER TABLET 1000 MG PO (08:35)
[2024-12-17] MEDS: ASPIRIN EC 81MG TABLET 81 MG PO (08:35)
[2024-12-17] MEDS: CARVEDILOL 25MG TABLET 25 MG PO (08:35)
[2024-12-17] MEDS: ISOSORBIDE MONO 60MG TAB.ER.24H 90 MG PO (08:35)
[2024-12-17] MEDS: ENOXAPARIN 40MG/0.4ML SYRINGE 40 MG SUBCUT (08:35)
[2024-12-17] MEDS: SACUBITRIL/VALSARTAN 24-26MG TABLET 1 EACH PO (08:36)
--- NOTE | 2024-12-17 11:09 | P.PN_ITS ---
Subjective Subjective Date: 12/17/24 Time: 09:30 Principal diagnosis: unstable angina Interval history: Successful stenting of vein graft stent stenosis yesterday. Patient reports feeling much better today and is looking forward to discharge. Exam Data for Last 24 hours Vital signs and Labs for Last 24 Hours: Temp Pulse Resp BP Pulse Ox O2 Del Method 98.1 F 68 16 130/75 97 Room Air 12/17/24 08:00 12/17/24 08:00 12/17/24 08:00 12/17/24 08:00 12/17/24 08:00 12/17/24 08:00 Laboratory Results - last 24 hr 12/16/24 14:48: Sodium 139, Potassium 4.2, Chloride 105, Carbon Dioxide 26, Anion Gap 12.2, BUN 24 H, Creatinine 0.90, Estimated Creat Clear 79, Estimated GFR 83, Est GFR ( Amer) 101, Glucose 90, Calcium 9.4 12/16/24 17:27: Activated Clotting Time > 400 H* 12/17/24 06:12: Hemoglobin A1c 5.9, Triglycerides 118, Cholesterol 139 L, LDL Cholesterol Direct 75.64 L, VLDL Cholesterol 24, HDL Cholesterol 33 L, Cholesterol/HDL Ratio 4.2 H, TSH 1.73 I & O for Last 24 hours: Intake & Output 12/14/24 12/15/24 12/16/24 12/17/24 23:59 23:59 23:59 23:59 Intake Total 735 / 735 Output Total 1350 / 1350 400 / 400 Balance -1350 / -615 335 / 335 Weight 180 lb 180 lb 180 lb 0.013 oz Constitutional Constitutional: no acute distress and cooperative *Routine HEENT Exam Eye: Present PERRL *Routine Respiratory Exam Respiratory: Present CTA bilaterally; Absent accessory muscle use, wheezes or crackles *Routine Cardiovascular Exam Cardiovascular: Present RRR, Normal S1 and Normal S2; Absent murmur, gallop or rubs *Routine Abdominal Exam Abdominal: Present soft; Absent tenderness *Routine Extremities Exam Extremities: Present pulses intact; Absent cyanosis or edema *Routine Skin Exam Skin: Present intact; Absent erythema or wounds *Routine Neurological Exam Neurological: Present alert and oriented X3 Routine Psychiatric Exam Psychiatric: Present cooperative Progress Note: A&P Assessment and plan (1) [place]cendo angina: Status: Acute (2) Coronary artery disease: Status: Acute (3) Hypertension: Status: Acute (4) Hyperlipidemia: Status: Acute (5) HFrEF (heart failure with reduced ejection fraction): Status: Acute Assessment and Plan Assessment and Plan for All Diagnoses:: CAD with unstable angina and chronic Trop elevation - known CAD w/hx of CABG and ROBERTO - last 11/2023 - trop are flat and EKG is unchanged but given severity of symptoms requiring Ntg 5-6x daily pt went for [facility] - see full report for details but pt received stenting of severe SVG to RCA stenosis - ECHO pending - resume DAPT, BB, Imdur, Ranexa - Will increase crestor to max dose at discharge - add Vascepa for additional CV event reduction - pt is nonsmoker and nondiabetic - will send P2Y12 platelet function test to see if he's a Plavix nonresponder Chronic HFrEF - slightly reduced EF 45% on [facility], ECHO read is pending - pt is euvolemic and asymptomatic - cont Entresto, BB, and Farxiga - consider repeat imaging later this year MARCELLA - resolved - Cr 1.4 on arrival - now 0.9 after fluids AAA - 4.0 on ECHO last year - will check CTA Elevated D-Dimer with CP - CTA neg for PE CV stable for discharge. He needs office f/u in 2 weeks. CV Discharge Meds: Aspirin 81 mg 1 p.o. daily Plavix 75 mg 1 p.o. daily Coreg 25 mg 1 p.o. twice daily Ranexa 1000 mg 1 p.o. twice daily Isosorbide mononitrate 90 mg 1 p.o. daily Entresto 24-26 mg 1 p.o. twice daily Farxiga 10 mg 1 p.o. daily *Increase Crestor to 40 mg 1 p.o. daily *Add Vascepa 2 g p.o. twice daily
--- NOTE | 2024-12-17 11:58 | HMH.PHAINT1 ---
Pharmacy Intervention Comments: COUNSELED PATIENT ON NEW MEDICATIONS WELL DISCONTINUED MEDICATIONS PRIOR TO DISCHARGE. PATIENT VERBALIZED UNDERSTANDING.
[2024-12-17 12:00] VITALS: BP 120/69; PULSE 69; PULSE 80; RESP 17; TEMP 36.8; O2SAT 100
--- NOTE | 2024-12-17 13:11 | CARE MANAGER ---
Attempted to get PA for Vascepa that was ordered by cardiology prior to discharge. Unfortunately, insurance has denied. I notified [facility] and Robert in cardiology of denial.
--- NOTE | 2024-12-18 10:07 | SW/DCPLANNER ---
Spoke with patient on the phone. Patient stated that he is well. Patient stated that he is aware of his upcoming appointments on Monday. Patient stated that [facility] had to order his medicine and that he will pick it up today. Patient stated that he has no concerns or questions at this time. Greg Celestin
[2024-12-19 08:58] LABS: Miscellaneous Test SEE COMMENTS
== END 2024-12-17 14:07 | disposition home or self-care (01) ==
LOC: ER 19:09 → 2ND 20:10
PROVIDERS: Internal Medicine Cardiovascular Disease; Nurse Practitioner Family; Physician Assistant; Admitting Provider Student in an Organized Health Care Education/Training Program; Emergency Provider Student in an Organized Health Care Education/Training Program; PCP Internal Medicine Adolescent Medicine; Visit Provider Student in an Organized Health Care Education/Training Program
DX: I25.110 Atherosclerotic heart disease of native coronary artery with unstable angina pectoris (principal); I11.0 Hypertensive heart disease with heart failure; I50.22 Chronic systolic (congestive) heart failure; I25.82 Chronic total occlusion of coronary artery; N17.9 Acute kidney failure, unspecified; I45.10 Unspecified right bundle-branch block; E78.5 Hyperlipidemia, unspecified; Z79.82 Long term (current) use of aspirin; Z79.51 Long term (current) use of inhaled steroids; Z95.1 Presence of aortocoronary bypass graft; Z79.01 Long term (current) use of anticoagulants; Z85.46 Personal history of malignant neoplasm of prostate; Z79.84 Long term (current) use of oral hypoglycemic drugs; Z79.899 Other long term (current) drug therapy
CPT/HCPCS: 36415; 71045; 71275; 80048; 80053; 80061; 83036; 83735; 84443; 84484; 85025; 85347; 85378; 86803; 87389; 92937; 93005; 93308; 93459; 99152; 99153; 99285; C1725; C1760; C1769; C1874; C1894; C9604; G0378; J1200; J1644; J1650; J2250; J3010; J3475; J7120; Q9967

== ENCOUNTER 2024-12-23 07:55 | Outpatient (CLI) | payer BC, SELFPAY ==
[2024-12-23 08:21] LABS: Basophils % 0.5 % (0.1-2.0); Eosinophils # 0.1 K/mm3 (0.0-0.4); Eosinophils % 2.3 % (0.1-12.0); Hematocrit 37.5 % (42.0-52.0); Hemoglobin 12.4 g/dL (14.1-18.0); Mean Corpuscular HGB Conc 33.1 g/dL (31.8-35.4); Mean Corpuscular Hemoglobin 30.8 pg (27.0-31.2); Mean Corpuscular Volume 93.3 fl (80-94); Mean Platelet Volume 9.8 fl (7.4-10.4); Monocytes # 0.4 K/mm3 (0.1-1.0); Neutrophils # 4.4 K/mm3 (1.8-7.8); Neutrophils % 72.7 % (37.0-80.0); Platelet Count 221 K/mm3 (142-424); Red Blood Count 4.02 M/mm3 (4.60-6.20); Red Cell Distribution Width 13.2 % (11.5-17.5); White Blood Count 6.1 K/mm3 (4.8-10.8)
[2024-12-23 08:55] LABS: Alanine Aminotransferase 19 U/L (12-78); Albumin Level 3.8 g/dl (3.5-5.0); Albumin/Globulin Ratio 1.5 (1.1-1.8); Alkaline Phosphatase 55 U/L (38-126); Anion Gap 10.2 mEq/L (5-15); Aspartate Amino Transferase 27 U/L (17-59); Bilirubin,Total 0.3 mg/dl (0.2-1.3); Blood Urea Nitrogen 22 mg/dl (9-20); Calcium 9.3 mg/dl (8.4-10.2); Carbon Dioxide 26 mmol/L (22.0-30.0); Chloride 107 mmol/L (98-107); Estimated Glomerular Filt Rate 74 ml/min (>60); GFR (African American) 89 ML/MIN (>60); Globulin 2.5 g/dL (1.3-3.2); Glucose 124 mg/dl (74-100); Potassium 4.2 mmoL/L (3.5-5.1); Sodium 139 mmol/L (136-145); Total Protein,Serum 6.3 g/dl (6.3-8.2)
== END 2024-12-23 23:59 | disposition home or self-care (01) ==
LOC: LAB 08:01
PROVIDERS: PCP Internal Medicine Adolescent Medicine; Visit Provider Internal Medicine
DX: I21.4 Non-ST elevation (NSTEMI) myocardial infarction (principal); I10 Essential (primary) hypertension
CPT/HCPCS: 36415; 80053; 85025

== ENCOUNTER 2025-02-20 12:10 | Observation (INO) | payer BC, SELFPAY ==
[2025-02-20] VITALS (21 sets, daily range): BP systolic 137–163; BP diastolic 60–99; PULSE 54–80; RESP 18–20; TEMP 37.2; O2SAT 90–97; BMI 30.5
--- NOTE | 2025-02-20 06:42 | SUR.PREOP ---
notified by outpt registration that patient was here. Went out and spoke with patient regarding arrival time. pt was instructed to be here at 0800, pt states he was under the impression he needed to be here at 0600. Patient states he will stay and wait. Family states they are going to go home and come back. pt is alert and oriented. pt denies any needs at this time. apologized to patient for wait time.
--- NOTE | 2025-02-20 07:14 | IR_ITS ---
APPROVED REPORT Patient Location: Outpatient PROCEDURES Right femoral arterial access Left heart catheterization Left ventriculogram Selective coronary angiogram Selective engagement of the left internal mammary artery to the LAD Selective engagement of the saphenous vein graft to the right coronary artery Selective engagement of the saphenous vein graft to the first and second obtuse marginal artery Drug-eluting stent deployment to the [place] LAD via the left internal mammary artery Drug-eluting stent deployment to the ostial proximal and mid left internal mammary artery Bare-metal stent deployment to the left subclavian artery Left radial arterial access Stent deployment to the ostial and proximal saphenous vein graft to the first and second obtuse marginal artery INDICATION Coronary artery disease, History of coronary bypass surgery, Accelerated angina pectoris, Severe disease within the [place] LAD, 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 COMPLICATIONS NONE Estimated Blood Loss: LESS THAN 10 ML TECHNIQUE One percent lidocaine used to anesthetize the right groin. The right femoral artery was accessed via the Seldinger technique and a 5 [place] sheath was placed in the right femoral artery. A JL 4, JR4 catheter were used to perform left heart catheterization, left ventriculogram selective coronary angiography as well as selective engagement of the 2 vein grafts and the left internal mammary artery. At the end the diagnostic angiogram the 5 [place] sheath was exchanged for a 6 [place] sheath and therapeutic heparin was administered given a therapeutic ACT. A ARVIZU catheter was placed into the left internal mammary artery. Angiography was performed. A Choice PT extra-support wire was placed distally into the [place] LAD and a 3 mm x 15 mm [place] frontier stent was deployed at 20 kiley in the LAD reducing the critical stenosis to 0%. Catheter dissection occurred in the subclavian artery therefore a 10 mm x 40 mm self-expanding stent was placed in the ostial proximal subclavian artery to help tack back the dissection. The stent was placed proximal to the origin of the vertebral artery and left internal mammary artery. The apparatus was removed. The catheter was then used to intubate the saphenous vein graft to the first and second obtuse marginal artery. Two 4 mm x 38 mm [place] frontier stents were deployed in the ostial proximal mid segment of the saphenous vein graft reducing the critical stenosis to 0%. There was EKG abnormalities and repeat angiography demonstrated there was dissection and loss of the left internal mammary artery graft. 1% lidocaine was used to anesthetize the left anterior aspect of the wrist and the left radial artery was accessed via the S[place]er technique and a 6 [place] hydrophilic sheath was placed in the left radial artery. An arterial cocktail using nitroglycerin lidocaine and verapamil was administered intra-arterially. A ARVIZU guide catheter was placed into the left internal mammary artery and a Choice PT export wire was placed distally. Two 3.5 x 38 mm [place] frontier stents were placed in the proximal portion in an overlapping manner at 20 kiley. An additional 3.5 x 22 mm [place] frontier stent was placed distally overlapping the 38 mm stent at 20 kiley the wire was then placed into the subclavian artery where a 9 mm x 20 mm self-expanding stent was placed distal to the first self-expanding stent the subclavian artery yet still proximal to the left vertebral artery and origin of the left internal mammary artery. This was deployed which helped create a better transition into the [place] subclavian artery. Following this wire was placed back into the left internal mammary artery where an additional 3.5 x 12 mm [place] frontier stent was placed in the ostial segment to tack back an ostial dissection which was initially messed after the ARVIZU revascularization. Excellent angiograph results were obtained. Following this the apparatus was removed the groin is reprepped closure change sheath was removed and the femoral artery good hemostasis was achieved using Angio-Seal device patient was transferred to postop putting in stable addition for radial artery sheath removal. A total of 10 stents were used for the coronary artery revascularization along with multiple catheters as well as a guide liner and 5 different Choice PT extra-support wires in addition to an assortment of multiple balloons. A 75 cm sheath was also used to access the subclavian artery. ANGIOGRAPHIC RESULTS The left main artery Ostially occluded The right coronary artery Proximally occluded The MOE ventriculogram reveals Ejection fraction of 50% The left ventricular end-diastolic pressure 15 mmHg ARVIZU to LAD is patent however there is a 90% stenosis at the anastomotic site going into the LAD. The [place] LAD is then subtotally occluded as it approaches the apex and then bifurcates into 2 patent apical branches Saphenous to posterior descending artery is widely patent Saphenous to first and second obtuse marginal artery has ostial proximal and mid severe diffuse atheromatous disease creating eccentric 80 to 90% stenoses. The skip graft between the first and second obtuse marginal artery has a concentric 70% stenosis however is appropriately sized for the [place] second obtuse marginal artery Left subclavian artery is atheromatous and patent as is the left vertebral artery and left axillary artery IMPRESSION Coronary disease as described above Complex revascularization of the [place] LAD via the ARVIZU graft Reconstruction of the ostial proximal and mid left internal mammary artery dissection reduced to 0% with 4 contiguous drug-eluting stents Successful stenting of the dissected left subclavian artery severe to critical disease reduced to 0% with 2 contiguous bare-metal self expanding stents Successful reconstruction of the saphenous vein graft to the first and second obtuse marginal artery critical disease reduced to 0% with 2 contiguous drug-eluting stents Preserved ejection fraction Normal LVEDP PLAN 1. Continue Effient and aspirin 2. Admit patient overnight for monitoring 3. CBC chemistry panel the morning 4. Risk factor modification 5. LDL less than 55 achieved high intensity statin 6. Cardiac rehabilitation Electronically signed by : Pancho Mcgowan MD 02/20/2025 13:30:00
[2025-02-20 07:30] LABS: Basophils % 0.2 % (0.1-2.0); Eosinophils # 0.1 K/mm3 (0.0-0.4); Eosinophils % 2.2 % (0.1-12.0); Hematocrit 36.8 % (42.0-52.0); Hemoglobin 12.4 g/dL (14.1-18.0); Lymphocytes % 15.9 % (10-50); Mean Corpuscular HGB Conc 33.7 g/dL (31.8-35.4); Mean Corpuscular Hemoglobin 30.9 pg (27.0-31.2); Mean Corpuscular Volume 91.8 fl (80-94); Mean Platelet Volume 9.9 fl (7.4-10.4); Monocytes # 0.5 K/mm3 (0.1-1.0); Monocytes % 8.5 % (1.7-9.3); Neutrophils # 4.6 K/mm3 (1.8-7.8); Neutrophils % 72.9 % (37.0-80.0); Platelet Count 207 K/mm3 (142-424); Red Blood Count 4.01 M/mm3 (4.60-6.20); Red Cell Distribution Width 13.9 % (11.5-17.5); White Blood Count 6.3 K/mm3 (4.8-10.8)
[2025-02-20 07:44] LABS: Anion Gap 16.1 mEq/L (5-15); Blood Urea Nitrogen 23 mg/dl (9-20); Calcium 9.8 mg/dl (8.4-10.2); Carbon Dioxide 24 mmol/L (22.0-30.0); Chloride 106 mmol/L (98-107); Creatinine Clearance Estimated 77 mL/min (50-200); Estimated Glomerular Filt Rate 66 ml/min (>60); GFR (African American) 80 ML/MIN (>60); Glucose 118 mg/dl (74-100); Potassium 4.1 mmoL/L (3.5-5.1); Sodium 142 mmol/L (136-145)
[2025-02-20] MEDS: diphenhydrAMINE 50MG/ML VIAL 50 MG IV (09:58)
[2025-02-20] MEDS: LIDOCAINE 1% 10ML MDV 20 ML IJ (09:58)
[2025-02-20] MEDS: HEPARIN 1,000 UNITS/500ML NS (CATH LAB) 3000 UNIT IV (09:59)
[2025-02-20] MEDS: 0.9 % SODIUM CHLORIDE 500 ML 25 ML IV (09:59)
[2025-02-20] MEDS: MIDAZOLAM HCL 1MG/ML 5ML VIAL 1 MG IV (10:00)
[2025-02-20] MEDS: FENTANYL 100MCG/2ML VIAL 50 MCG IV (10:01)
[2025-02-20] MEDS: HEPARIN 1,000 UNITS/ML 10ML VIAL (CATH LAB) 10000 UNIT IV (10:19)
[2025-02-20] MEDS: NITROGLYCERIN 800MCG/8ML SYR (CATH LAB) 800 MCG IA (11:18)
[2025-02-20] MEDS: VERAPAMIL 2.5MG/ML 2ML VIAL 2.5 MG IV (11:18)
--- NOTE | 2025-02-20 11:20 | SUR.OPER ---
Notified Dr Weldon of admission, agreed to admit, notified case management
--- NOTE | 2025-02-20 11:38 | SUR.PREOP ---
called and spoke with pt's son, Ricardo ([phone]), at this time regarding pt's procedure and MD's decision to admit patient. Ricardo states he will be up to see patient later this date.
--- NOTE | 2025-02-20 12:18 | HMH.PHAINT1 ---
Pharmacy Intervention Comments: MEDICATION RECONCILIATION COMPLETED ON PATIENT USING EXTERNAL FILL HISTORY FROM PHARMACY AND LIST FROM CARDIOLOGY OFFICE. -PETER ALBARADO, ROLAD
[2025-02-20] MEDS: IOPAMIDOL-370 (76%);100ML BOTTLE 260 ML IV (12:49)
--- NOTE | 2025-02-20 13:31 | EXP.CARD.CON ---
History of Present Illness History of Present Illness Consult date: 02/20/25 Requesting physician: Jas Rendon Consult reason: chest pain and known to you Chief complaint: post coronary stenting Additional Medical History:: 1. CAD A. SVG to RCA Stenting 11/2023 B. Hx of multiple stents in the past C. Hx of CABG D. Aspirin and Plavix for DAPT 2. HLD-LDL goal is < 55. A. on statin. 3. Hypertension Echo 12/16/2023 shows a low normal EF of 50%, asynchronous septum, RV not well-visualized, mild AI mild MR mild TR mild PI, RVSP 30-35, mildly dilated aortic root of 4.0 cm. CTA of chest 12/16/2023 showed no aneurysm noted. 4. 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 [facility] Disclaimer: The information contained in this section may have been updated after the patient was seen, as this information can be updated by other users. Medical History Crescendo angina Abnormal electrocardiogram [ECG] [EKG] Acute non-ST elevation myocardial infarction (NSTEMI) CHF (congestive heart failure) Hyperlipidemia Hypertension Dizziness Coronary artery disease Acute hypokalemia Acute non-ST elevation myocardial infarction (NSTEMI) Accelerated hypertension Prostate cancer Pharyngitis Stable angina RBBB Angina at rest Chest pain due to coronary artery disease Chest pain Surgical History History of cardiac cath Hx of CABG Social History (Updated 02/20/25 @ 12:22 by Shirlene Cadet RN) Smoking Status: Never smoker second hand exposure: No alcohol intake: never substance use type: denies use current occupational status: employed Travel in the last 8 weeks: None adopted: No foster care: No household members: family housing: house lives independently: Yes marital status: service: No long term: No 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 current occupational exposures/hazards: No caffeine: Yes Have you lived/traveled outside [place] in past 30 days?: No Contact w/someone who lives/traveled outside US past 30 days?: No Exposure to someone with infectious disease in past 14 days?: No Do you have a fever (greater than 100.4 F or 38 C)?: No Have you tested positive for COVID-19: No Exposed to someone with COVID-19 in past 14 days?: No Do you have a sore throat?: No Do you have a cough?: No Do you have any weakness?: No Are you experiencing any nausea/vomitting?: No Do you have any diarrhea?: No Are you experiencing any unusual bleeding?: No Do you have any muscle aches/pain?: No Do you have any abdominal pain?: No Are you experiencing loss of taste or smell?: No Exam Data for Last 24 hours Vital signs and Labs for Last 24 Hours: Pulse Resp BP Pulse Ox O2 Del Method O2 Flow Rate 73 18 142/92 H 96 Room Air 2 02/20/25 12:45 02/20/25 12:45 02/20/25 12:45 02/20/25 13:02 02/20/25 13:02 02/20/25 12:45 Laboratory Results - last 24 hr 02/20/25 06:50: WBC 6.3, RBC 4.01 L, Hgb 12.4 L, Hct 36.8 L, MCV 91.8, MCH 30.9, MCHC 33.7, RDW 13.9, Plt Count 207, MPV 9.9, Neut % (Auto) 72.9, Lymph % (Auto) 15.9, [place] % (Auto) 8.5, Eos % (Auto) 2.2, Baso % (Auto) 0.2, Neut # (Auto) 4.6, Lymph # (Auto) 1.0, [place] # (Auto) 0.5, Eos # (Auto) 0.1, Baso # (Auto) 0.0, Sodium 142, Potassium 4.1, Chloride 106, Carbon Dioxide 24, Anion Gap 16.1 H, BUN 23 H, Creatinine 1.10, Estimated Creat Clear 77, Estimated GFR 66, Est GFR ( Amer) 80, Glucose 118 H, Calcium 9.8 I & O for Last 24 hours: Intake & Output 03/25/25 03/26/25 03/27/25 03/28/25 11:59 11:59 11:59 11:59 Output Total 250 / 250 Balance -250 / -250 Weight 195 lb Meds Home Medications and Allergies Home Medications ?Medication ?Instructions ?Recorded ?Confirmed ?Type aspirin 81 mg tablet,delayed 81 mg PO DAILY 12/28/17 02/20/25 History release (Adult Low Dose Aspirin) nitroglycerin 0.4 mg sublingual 0.4 mg sublingual Q5MINP PRN Chest 12/28/17 02/20/25 History tablet (Nitrostat) Pain dapagliflozin propanediol 10 mg 10 mg PO DAILY 11/29/23 02/20/25 History tablet (Farxiga) sacubitril 24 mg-valsartan 26 mg 1 tab PO BID 11/29/23 02/20/25 History tablet (Entresto) carvedilol 25 mg tablet 25 mg PO BID 30 days #60 tabs 12/17/24 02/20/25 Rx icosapent ethyl 1 gram capsule 2 g (2 x 1 gram) PO BID #120 caps 02/10/25 02/20/25 Rx (Vascepa) isosorbide mononitrate 60 mg 60 mg PO BID #60 tabs 02/10/25 02/20/25 Rx tablet,extended release 24 hr pantoprazole 40 mg tablet,delayed 40 mg PO DAILY #30 tabs 02/10/25 02/20/25 Rx release (Protonix) prasugrel HCl 10 mg tablet 10 mg PO DAILY #30 tabs 02/10/25 02/20/25 Rx (Effient) clonidine HCl 0.1 mg tablet 1 mg PO DAILYP PRN Hypertension 02/20/25 02/20/25 History ranolazine 1,000 mg 1,000 mg PO BID 02/20/25 02/20/25 History tablet,extended release,12 hr rosuvastatin 40 mg tablet 40 mg PO DAILY 02/20/25 02/20/25 History New Prescriptions to Start Prescriptions: Allergies Allergy/AdvReac Type Severity Reaction Status Date / Time morphine Allergy Intermediate HIVES,SWEAT Verified 02/20/25 08:11 ING clopidogrel (From Plavix) AdvReac Mild nonresponde Verified 02/20/25 08:11 r Assessment and Plan *Assessment and plan (1) Coronary artery disease: Status: Acute Qualifiers: Associated angina: without angina Coronary Disease-Associated Artery/Lesion type: [place] artery [place] vs. transplanted heart: [place] heart Qualified Code(s): I25.10 - Atherosclerotic heart disease of [place] coronary artery without angina pectoris Category: Medical Code(s): I25.10 - Atherosclerotic heart disease of [place] coronary artery without angina pectoris (2) Hx of CABG: Status: Acute Category: Surgical Code(s): Z95.1 - Presence of aortocoronary bypass graft (3) Hypertension: Status: Acute Qualifiers: Hypertension type: primary hypertension Qualified Code(s): I10 - Essential (primary) hypertension Category: Medical Code(s): I10 - Essential (primary) hypertension (4) Hyperlipidemia: Status: Acute Qualifiers: Hyperlipidemia type: mixed hyperlipidemia Qualified Code(s): E78.2 - Mixed hyperlipidemia Category: Medical Code(s): E78.5 - Hyperlipidemia, unspecified Plan 1. CAD with history of CABG -multivessel stenting (ARVIZU, LAD, Left subclavian, SVG to first and second OM) today with 8 stents on cath report -observe overnight -adjust meds (reduce anti-anginals as able) -DAPT with ASA/prasugrel 2. HTN -continue carvedilol and entresto 3. HLD -on statin -LDL 75, 11/2024 REsume home meds except hold isosorbide to see if he needs it. Ranexa will help with coronary vasospasm related to multiple stents.
--- NOTE | 2025-02-20 13:45 | PC.NURSE ---
Unable to ask [facility] questions at this time. 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
[2025-02-20 17:19] LABS: CATHL Activated Clotting Time 316 SEC (74-125)
[2025-02-20 17:20] LABS: CATHL Activated Clotting Time 326 SEC (74-125)
[2025-02-20] MEDS: ONDANSETRON 4MG/2ML VIAL 4 MG IV (17:21)
[2025-02-20] MEDS: CARVEDILOL 25MG TABLET 25 MG PO (20:07)
[2025-02-20] MEDS: RANOLAZINE 500MG ER TABLET 1000 MG PO (20:07)
[2025-02-20] MEDS: ATORVASTATIN 40MG TABLET 80 MG PO (20:07)
[2025-02-20] MEDS: SACUBITRIL/VALSARTAN 24-26MG TABLET 1 EACH PO (20:07)
--- NOTE | 2025-02-20 22:34 | P.HP_ITS ---
History of Present Illness *Admission Date: 02/20/25 *History of present illness: Anupam is a 70-year-old male with a history of CAD who presented for an outpatient [facility]. Received [address] Mcgowan requested admission and monitoring for contrast nephropathy. On my evaluation of patient, patient was lying in bed comfortably without acute distress. No chest pain, shortness of breath. Will continue gentle IV maintenance fluids. Follow-up morning CBC, CMP. PFSH [facility] Disclaimer: The information contained in this section may have been updated after the patient was seen, as this information can be updated by other users. Medical History (Updated 02/27/25 @ 09:19 by Beryl Jolly RN) Dizziness Abnormal electrocardiogram [ECG] [EKG] Crescendo angina Acute non-ST elevation myocardial infarction (NSTEMI) CHF (congestive heart failure) Hyperlipidemia Hypertension Coronary artery disease Acute hypokalemia Acute non-ST elevation myocardial infarction (NSTEMI) Accelerated hypertension Prostate cancer Pharyngitis Stable angina RBBB Angina at rest Chest pain due to coronary artery disease Chest pain Surgical History History of cardiac cath Hx of CABG Social History Smoking Status: Never smoker second hand exposure: No alcohol intake: never substance use type: denies use current occupational status: employed Travel in the last 8 weeks: None adopted: No foster care: No household members: family housing: house lives independently: Yes marital status: service: No mcc: No 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 current occupational exposures/hazards: No caffeine: Yes Other Medical History Have you received the Flu Vaccine for this season: Yes Have you received the Pneumonia Vaccine: Yes Meds Home Medications and Allergies Home Medications ?Medication ?Instructions ?Recorded ?Confirmed ?Type aspirin 81 mg tablet,delayed 81 mg PO DAILY 12/28/17 02/27/25 History release (Adult Low Dose Aspirin) nitroglycerin 0.4 mg sublingual 0.4 mg sublingual Q5MINP PRN Chest 12/28/17 02/27/25 History tablet (Nitrostat) Pain dapagliflozin propanediol 10 mg 10 mg PO DAILY 11/29/23 02/27/25 History tablet (Farxiga) sacubitril 24 mg-valsartan 26 mg 1 tab PO BID 11/29/23 02/27/25 History tablet (Entresto) icosapent ethyl 1 gram capsule 2 g (2 x 1 gram) PO BID #120 caps 02/10/25 02/27/25 Rx (Vascepa) isosorbide mononitrate 60 mg 60 mg PO BID #60 tabs 02/10/25 02/27/25 Rx tablet,extended release 24 hr pantoprazole 40 mg tablet,delayed 40 mg PO DAILY #30 tabs 02/10/25 02/27/25 Rx release (Protonix) prasugrel HCl 10 mg tablet 10 mg PO DAILY #30 tabs 02/10/25 02/27/25 Rx (Effient) clonidine HCl 0.1 mg tablet 1 mg PO DAILYP PRN Hypertension 02/20/25 02/27/25 History ranolazine 1,000 mg 1,000 mg PO BID 02/20/25 02/27/25 History tablet,extended release,12 hr rosuvastatin 40 mg tablet 40 mg PO DAILY 02/20/25 02/27/25 History carvedilol 12.5 mg tablet (Coreg) 12.5 mg PO BID #60 tabs 02/27/25 02/27/25 Rx New Prescriptions to Start Prescriptions: Allergies Allergy/AdvReac Type Severity Reaction Status Date / Time morphine Allergy Intermediate HIVES,SWEAT Verified 02/27/25 08:54 ING clopidogrel (From Plavix) AdvReac Mild nonresponde Verified 02/27/25 08:54 r Exam Data for Last 24 hours Vital signs and Labs for Last 24 Hours: Temp Pulse Resp BP Pulse Ox O2 Del Method O2 Flow Rate 99.0 F 76 20 142/85 H 94 L Room Air 2 02/20/25 19:15 02/20/25 19:15 02/20/25 19:15 02/20/25 19:15 02/20/25 19:15 02/20/25 19:15 02/20/25 13:15 Laboratory Results - last 24 hr 02/20/25 06:50: WBC 6.3, RBC 4.01 L, Hgb 12.4 L, Hct 36.8 L, MCV 91.8, MCH 30.9, MCHC 33.7, RDW 13.9, Plt Count 207, MPV 9.9, Neut % (Auto) 72.9, Lymph % (Auto) 15.9, [place] % (Auto) 8.5, Eos % (Auto) 2.2, Baso % (Auto) 0.2, Neut # (Auto) 4.6, Lymph # (Auto) 1.0, [place] # (Auto) 0.5, Eos # (Auto) 0.1, Baso # (Auto) 0.0, Sodium 142, Potassium 4.1, Chloride 106, Carbon Dioxide 24, Anion Gap 16.1 H, BUN 23 H, Creatinine 1.10, Estimated Creat Clear 77, Estimated GFR 66, Est GFR ( Amer) 80, Glucose 118 H, Calcium 9.8 02/20/25 10:14: Activated Clotting Time 326 H* 02/20/25 11:37: Activated Clotting Time 316 H* I & O for Last 24 hours: Intake & Output 02/17/25 02/18/25 02/19/25 02/20/25 23:59 23:59 23:59 23:59 Intake Total 360 / 360 Output Total 2049 Balance -1690 / -1690 Weight 88.451 kg Constitutional Constitutional: no acute distress *Routine HEENT Exam Head: Present normocephalic Eye: Present EOMI and PERRL ENT: Present mucous membranes moist *Routine Neck Exam Neck: Present supple; Absent lymphadenopathy *Routine Respiratory Exam Respiratory: Present CTA bilaterally *Routine Cardiovascular Exam Cardiovascular: Present RRR *Routine Abdominal Exam Abdominal: Present soft and normoactive bowel sounds; Absent tenderness *Routine Rectal Exam Rectal:: deferred *Routine Genitalia Exam Genitalia:: deferred *Routine Extremities Exam Extremities: Absent cyanosis, clubbing or edema *Routine Skin Exam Skin: Present warm; Absent rash *Routine Neurological Exam Neurological: Present alert and oriented X3 Assessment and Plan *Assessment and plan (1) Coronary artery disease: Status: Acute Qualifiers: Coronary Disease-Associated Artery/Lesion type: [place] artery [place] vs. transplanted heart: [place] heart Associated angina: without angina Qualified Code(s): I25.10 - Atherosclerotic heart disease of [place] coronary artery without angina pectoris Category: Medical Code(s): I25.10 - Atherosclerotic heart disease of [place] coronary artery without angina pectoris (2) Hx of CABG: Status: Acute Category: Surgical Code(s): Z95.1 - Presence of aortocoronary bypass graft Plan Anupam is a 70-year-old male with a history of CAD who presented for an ou [facility]. Received [address] Mcgowan requested admission and monitoring for contrast nephropathy. On my evaluation of patient, patient was lying in bed comfortably without acute distress. No chest pain, shortness of breath. Will continue gentle IV maintenance fluids. Follow-up morning CBC, CMP. #Multivessel CAD #History of CABG #Hypertension #Hyperlipidemia #CKD stage II ? S/p outpatient PCI with 8 stents to ARVIZU, LAD, Left subclavian, SVG to first and second OM. Patient tolerated procedure well. Admitted to monitor renal function in the setting of PCI contrast. ? Continue home aspirin 81 mg, Effient 10 mg, ranolazine 1000 mg twice daily, Imdur 60 mg. Hold Entresto, Farxiga, Coreg to reduce risk of contrast nephropathy. ? Continue gentle IV fluids at 75 mL/h. ? Creatinine 1.0, GFR 74. Stable. #GERD ? Continue home PPI. Full code DVT prophylaxis: Lovenox 40 mg
[2025-02-21] VITALS: BP 137/81; PULSE 75; PULSE 76; RESP 16; TEMP 37; O2SAT 95
[2025-02-21 04:00] VITALS: BP 125/60; PULSE 70; RESP 16; TEMP 37.1; O2SAT 91; BMI 30.6
--- NOTE | 2025-02-21 05:49 | PC.NURSE ---
Pt A/Ox4. Tracelet taken off L wrist without complication. Telfa/tegaderm applied to site, CDI. DSG to right femoral site CDI. Pt has ambulated to BR with standby assist, tolerated well. No complaints voiced to staff throughout shift. First degree block noted on tele. Call light within reach.
[2025-02-21 06:59] LABS: Basophils % 0.3 % (0.1-2.0); Eosinophils # 0.1 K/mm3 (0.0-0.4); Eosinophils % 0.8 % (0.1-12.0); Hematocrit 34.2 % (42.0-52.0); Hemoglobin 11.4 g/dL (14.1-18.0); Lymphocytes # 1.2 K/mm3 (0.7-4.5); Lymphocytes % 16.6 % (10-50); Mean Corpuscular HGB Conc 33.3 g/dL (31.8-35.4); Mean Corpuscular Hemoglobin 30.6 pg (27.0-31.2); Mean Corpuscular Volume 91.9 fl (80-94); Mean Platelet Volume 9.8 fl (7.4-10.4); Monocytes # 0.7 K/mm3 (0.1-1.0); Monocytes % 9.3 % (1.7-9.3); Neutrophils # 5.3 K/mm3 (1.8-7.8); Neutrophils % 72.9 % (37.0-80.0); Platelet Count 196 K/mm3 (142-424); Red Blood Count 3.72 M/mm3 (4.60-6.20); White Blood Count 7.2 K/mm3 (4.8-10.8)
[2025-02-21 07:10] LABS: Anion Gap 12.1 mEq/L (5-15); Blood Urea Nitrogen 20 mg/dl (9-20); Calcium 9.4 mg/dl (8.4-10.2); Carbon Dioxide 23 mmol/L (22.0-30.0); Chloride 107 mmol/L (98-107); Creatinine Clearance Estimated 77 mL/min (50-200); Estimated Glomerular Filt Rate 66 ml/min (>60); GFR (African American) 80 ML/MIN (>60); Glucose 103 mg/dl (74-100); Potassium 4.1 mmoL/L (3.5-5.1); Sodium 138 mmol/L (136-145)
[2025-02-21 08:00] VITALS: BP 110/62; PULSE 73; PULSE 80; RESP 20; TEMP 37.4; O2SAT 90
[2025-02-21] MEDS: SACUBITRIL/VALSARTAN 24-26MG TABLET 1 EACH PO (08:01)
[2025-02-21] MEDS: PANTOPRAZOLE 40MG TABLET 40 MG PO (08:01)
[2025-02-21] MEDS: DAPAGLIFLOZIN PROPANEDIOL 10 MG TABLET PO (08:01)
[2025-02-21] MEDS: CARVEDILOL 25MG TABLET 25 MG PO (08:01)
[2025-02-21] MEDS: RANOLAZINE 500MG ER TABLET 1000 MG PO (08:02)
--- NOTE | 2025-02-21 08:47 | P.DS_ITS ---
General Admission date:: 02/20/25 HPI HPI HPI: Anupam is a 70-year-old male with a history of CAD who presented for an outpatient [facility]. Received [address] Mcgowan requested admission and monitoring for contrast nephropathy. Continue IV maintenance fluids. Follow-up morning CBC, CMP. Hospital Course Hospital Course Hospital Course: Reynaldo Bo is a 70-year-old male with a history of CAD who presented for an outpatient [facility]. Received [address] Mcgowan requested admission and monitoring for contrast nephropathy. On my evaluation of patient, patient was lying in bed comfortably without acute distress. No chest pain, shortness of breath. Will continue gentle IV maintenance fluids. Follow-up morning CBC, CMP. #Multivessel CAD #History of CABG #Hypertension #Hyperlipidemia #CKD stage II ? S/p outpatient PCI 02/20/2025 with 8 stents to ARVIZU, LAD, Left subclavian, SVG to first and second OM. Patient tolerated procedure well. Admitted to monitor renal function in the setting of PCI contrast. ? Spoke with Dr. Mcgowan, continue home aspirin 81 mg, Effient 10 mg, ranolazine 1000 mg twice daily, Imdur 60 mg, Entresto, Farxiga, Coreg. ? Creatinine 1.0, GFR 74. Stable. ? Advised to follow-up with cardiology within 2 weeks. #GERD ? Continue home PPI. Exam Data for Last 24 hours Vital signs and Labs for Last 24 Hours: Temp Pulse Resp BP Pulse Ox O2 Del Method O2 Flow Rate 99.3 F 73 20 110/62 90 L Room Air 2 02/21/25 08:00 02/21/25 08:00 02/21/25 08:00 02/21/25 08:00 02/21/25 08:00 02/21/25 08:00 02/20/25 13:15 Laboratory Results - last 24 hr 02/20/25 10:14: Activated Clotting Time 326 H* 02/20/25 11:37: Activated Clotting Time 316 H* 02/21/25 06:48: WBC 7.2, RBC 3.72 L, Hgb 11.4 L, Hct 34.2 L, MCV 91.9, MCH 30.6, MCHC 33.3, RDW 14.0, Plt Count 196, MPV 9.8, Neut % (Auto) 72.9, Lymph % (Auto) 16.6, [place] % (Auto) 9.3, Eos % (Auto) 0.8, Baso % (Auto) 0.3, Neut # (Auto) 5.3, Lymph # (Auto) 1.2, [place] # (Auto) 0.7, Eos # (Auto) 0.1, Baso # (Auto) 0.0, Sodium 138, Potassium 4.1, Chloride 107, Carbon Dioxide 23, Anion Gap 12.1, BUN 20, Creatinine 1.10, Estimated Creat Clear 77, Estimated GFR 66, Est GFR ( Amer) 80, Glucose 103 H, Calcium 9.4 I & O for Last 24 hours: Intake & Output 02/18/25 02/19/25 02/20/25 02/21/25 23:59 23:59 23:59 23:59 Intake Total 360 / 360 240 / 240 Output Total 2150 / 2150 0 / 0 Balance -1790 / -1790 240 / 240 Weight 88.451 kg 88.415 kg Results Data Completed and Pending Labs on day of discharge: Labs from last 24 hours 02/21/25 02/20/25 02/20/25 06:48 11:37 10:14 WBC 7.2 RBC 3.72 L Hgb 11.4 L Hct 34.2 L MCV 91.9 MCH 30.6 MCHC 33.3 RDW 14.0 Plt Count 196 MPV 9.8 Neut % (Auto) 72.9 Lymph % (Auto) 16.6 [place] % (Auto) 9.3 Eos % (Auto) 0.8 Baso % (Auto) 0.3 Neut # (Auto) 5.3 Lymph # (Auto) 1.2 [place] # (Auto) 0.7 Eos # (Auto) 0.1 Baso # (Auto) 0.0 Activated Clotting Time 316 H* 326 H* Sodium 138 Potassium 4.1 Chloride 107 Carbon Dioxide 23 Anion Gap 12.1 BUN 20 Creatinine 1.10 Estimated Creat Clear 77 Estimated GFR 66 Est GFR ( Amer) 80 Glucose 103 H Calcium 9.4 DS: Diagnosis Discharge Diagnosis (1) Coronary artery disease: Status: Acute Code(s): I25.10 - Atherosclerotic heart disease of [place] coronary artery without angina pectoris Qualifiers: Associated angina: without angina Coronary Disease-Associated Artery/Lesion type: [place] artery [place] vs. transplanted heart: [place] heart Qualified Code(s): I25.10 - Atherosclerotic heart disease of [place] coronary artery without angina pectoris (2) Hx of CABG: Status: Acute Code(s): Z95.1 - Presence of aortocoronary bypass graft (3) Hypertension: Status: Acute Code(s): I10 - Essential (primary) hypertension Qualifiers: Hypertension type: primary hypertension Qualified Code(s): I10 - E ssential (primary) hypertension (4) Hyperlipidemia: Status: Acute Code(s): E78.5 - Hyperlipidemia, unspecified Qualifiers: Hyperlipidemia type: mixed hyperlipidemia Qualified Code(s): E78.2 - Mixed hyperlipidemia Meds Home Medications and Allergies Home Medications ?Medication ?Instructions ?Recorded ?Confirmed ?Type aspirin 81 mg tablet,delayed 81 mg PO DAILY 12/28/17 02/27/25 History release (Adult Low Dose Aspirin) nitroglycerin 0.4 mg sublingual 0.4 mg sublingual Q5MINP PRN Chest 12/28/17 02/27/25 History tablet (Nitrostat) Pain dapagliflozin propanediol 10 mg 10 mg PO DAILY 11/29/23 02/27/25 History tablet (Farxiga) sacubitril 24 mg-valsartan 26 mg 1 tab PO BID 11/29/23 02/27/25 History tablet (Entresto) icosapent ethyl 1 gram capsule 2 g (2 x 1 gram) PO BID #120 caps 02/10/25 02/27/25 Rx (Vascepa) isosorbide mononitrate 60 mg 60 mg PO BID #60 tabs 02/10/25 02/27/25 Rx tablet,extended release 24 hr pantoprazole 40 mg tablet,delayed 40 mg PO DAILY #30 tabs 02/10/25 02/27/25 Rx release (Protonix) prasugrel HCl 10 mg tablet 10 mg PO DAILY #30 tabs 02/10/25 02/27/25 Rx (Effient) clonidine HCl 0.1 mg tablet 1 mg PO DAILYP PRN Hypertension 02/20/25 02/27/25 History ranolazine 1,000 mg 1,000 mg PO BID 02/20/25 02/27/25 History tablet,extended release,12 hr rosuvastatin 40 mg tablet 40 mg PO DAILY 02/20/25 02/27/25 History carvedilol 12.5 mg tablet (Coreg) 12.5 mg PO BID #60 tabs 02/27/25 02/27/25 Rx New Prescriptions to Start Prescriptions: Allergies Allergy/AdvReac Type Severity Reaction Status Date / Time morphine Allergy Intermediate HIVES,SWEAT Verified 02/27/25 08:54 ING clopidogrel (From Plavix) AdvReac Mild nonresponde Verified 02/27/25 08:54 r Discharge Plan Disposition Patient Disposition: Home, Self-Care Condition: Fair Follow up Plan Follow up with: Pancho Mcgowan MD [Staff Physician] - 02/27/25 9:00 am Ten Mendoza MD [Primary Care Provider] - 02/26/25 12:15 pm Prescriptions/Medication Reconciliation: Continued Farxiga 10 mg tablet 10 mg PO DAILY Entresto 24-26 mg tablet 1 tab PO BID Patient Comments: TAKE ONE TABLET BY MOUTH TWICE DAILY aspirin [Adult Low Dose Aspirin] 81 mg tablet,delayed release (DR/EC) 81 mg PO DAILY nitroglycerin [Nitrostat] 0.4 mg tablet, sublingual 0.4 mg SUBLINGUAL Q5MINP PRN (Reason: Chest Pain) icosapent ethyl [Vascepa] 1 gram capsule 2 g PO BID Qty: 120 5RF prasugrel HCl [Effient] 10 mg tablet 10 mg PO DAILY Qty: 30 11RF pantoprazole [Protonix] 40 mg tablet,delayed release (DR/EC) 40 mg PO DAILY Qty: 30 5RF isosorbide mononitrate 60 mg tablet extended release 24 hr 60 mg PO BID Qty: 60 4RF rosuvastatin 40 mg tablet 40 mg PO DAILY Patient Comments: TAKE ONE TABLET BY MOUTH EVERY DAY ranolazine 1,000 mg tablet extended release 12 hr 1,000 mg PO BID Patient Comments: TAKE ONE TABLET BY MOUTH TWICE DAILY clonidine HCl 0.1 mg tablet 1 mg PO DAILYP PRN (Reason: Hypertension) No Action carvedilol [Coreg] 12.5 mg tablet 12.5 mg PO BID Qty: 60 5RF Rx Instructions: must administer with a meal/food Problem Reconciliation Problems Reviewed?: Yes Patient Discharge Instructions Patient Instructions: Cardiac Catheterization, DI for Cardiac Catheterization, DI for Surgical Site Infection, DI for Moderate Sedation Print Language: Thai Providers Primary Care Provider: Ten Mendoza Admit Provider: Pancho Mcgowan Attending Provider: Jas Rendon
[2025-02-21] MEDS: PRASUGREL 10MG TAB 10 MG PO (10:01)
[2025-02-21] MEDS: ASPIRIN EC 81MG TABLET 81 MG PO (10:02)
--- NOTE | 2025-02-25 10:51 | SW/DCPLANNER ---
Spoke with patient on the phone. Patient stated that he is doing well. Patient stated that he is aware of his upcoming appointments. Patient stated that he was not prescribed any new medicine to continue the medicine that he has been on. Patient stated that he has no concerns or questions at this time. Greg Celestin
== END 2025-02-21 11:06 | disposition home or self-care (01) ==
LOC: 2ND 12:11
PROVIDERS: Admitting Provider Internal Medicine; PCP Internal Medicine Adolescent Medicine; Visit Provider Student in an Organized Health Care Education/Training Program
DX: I25.110 Atherosclerotic heart disease of native coronary artery with unstable angina pectoris (principal); Z95.1 Presence of aortocoronary bypass graft; I77.79 Dissection of other specified artery; I77.1 Stricture of artery; I25.2 Old myocardial infarction; E78.5 Hyperlipidemia, unspecified; Z88.5 Allergy status to narcotic agent; Z88.8 Allergy status to other drugs, medicaments and biological substances; Z79.899 Other long term (current) drug therapy; Z79.82 Long term (current) use of aspirin; I25.729 Atherosclerosis of autologous artery coronary artery bypass graft(s) with unspecified angina pectoris; I25.83 Coronary atherosclerosis due to lipid rich plaque; I11.0 Hypertensive heart disease with heart failure; I50.9 Heart failure, unspecified
CPT/HCPCS: 36415; 80048; 85025; 85347; 92928; 92937; 92938; 93459; 99152; 99153; C1725; C1760; C1766; C1769; C1874; C1876; C1894; C9600; C9604; C9605; G0378; J1200; J1644; J2405; J3010; Q9967

== ENCOUNTER 2025-02-27 07:40 | Outpatient (CLI) | payer BC, SELFPAY ==
[2025-02-27 08:09] LABS: Basophils % 0.5 % (0.1-2.0); Eosinophils # 0.2 K/mm3 (0.0-0.4); Eosinophils % 3.2 % (0.1-12.0); Hematocrit 30.2 % (42.0-52.0); Lymphocytes # 1.1 K/mm3 (0.7-4.5); Lymphocytes % 18.4 % (10-50); Mean Corpuscular HGB Conc 33.1 g/dL (31.8-35.4); Mean Corpuscular Hemoglobin 30.7 pg (27.0-31.2); Mean Corpuscular Volume 92.6 fl (80-94); Mean Platelet Volume 10.1 fl (7.4-10.4); Monocytes # 0.6 K/mm3 (0.1-1.0); Monocytes % 9.8 % (1.7-9.3); Neutrophils % 67.8 % (37.0-80.0); Platelet Count 229 K/mm3 (142-424); Red Blood Count 3.26 M/mm3 (4.60-6.20); Red Cell Distribution Width 13.7 % (11.5-17.5); White Blood Count 5.9 K/mm3 (4.8-10.8)
[2025-02-27 09:03] LABS: Chloride 109 mmol/L (98-107); Sodium 140 mmol/L (136-145)
[2025-02-27 09:04] LABS: Potassium 4.3 mmoL/L (3.5-5.1)
[2025-02-27 09:06] LABS: Blood Urea Nitrogen 22 mg/dl (9-20); Estimated Glomerular Filt Rate 74 ml/min (>60); GFR (African American) 89 ML/MIN (>60)
[2025-02-27 09:07] LABS: Anion Gap 13.3 mEq/L (5-15); Calcium 9.2 mg/dl (8.4-10.2); Carbon Dioxide 22 mmol/L (22.0-30.0); Glucose 109 mg/dl (74-100)
== END 2025-02-27 23:59 | disposition home or self-care (01) ==
LOC: LAB 07:42
PROVIDERS: PCP Internal Medicine Adolescent Medicine; Visit Provider Internal Medicine
DX: I25.110 Atherosclerotic heart disease of native coronary artery with unstable angina pectoris (principal); Z95.5 Presence of coronary angioplasty implant and graft; R42 Dizziness and giddiness; E78.2 Mixed hyperlipidemia
CPT/HCPCS: 36415; 80048; 85025

== ENCOUNTER 2025-11-07 10:25 | Emergency (ER) | payer BC, SELFPAY ==
[2025-11-07 10:31] VITALS: BP 139/86; PULSE 81; O2SAT 97
[2025-11-07 10:35] VITALS: BP 139/86; PULSE 82; RESP 16; TEMP 36.5; O2SAT 96; BMI 27.3
--- NOTE | 2025-11-07 10:46 | HMH.EDGENADL ---
Discharge Plan Disposition Patient Disposition: Xfer Other Condition: Fair Prescriptions Prescriptions: No Action Farxiga 10 mg tablet 10 mg PO DAILY Entresto 24-26 mg tablet 1 tab PO BID Patient Comments: TAKE ONE TABLET BY MOUTH TWICE DAILY famotidine 20 mg tablet PO Patient Comments: TAKE ONE TABLET BY MOUTH TWICE DAILY aspirin [Adult Low Dose Aspirin] 81 mg tablet,delayed release (DR/EC) 81 mg PO DAILY nitroglycerin [Nitrostat] 0.4 mg tablet, sublingual 0.4 mg SUBLINGUAL Q5MINP PRN (Reason: Chest Pain) prasugrel HCl [Effient] 10 mg tablet 10 mg PO DAILY Qty: 30 11RF pantoprazole 40 mg tablet,delayed release (DR/EC) See Rx Instructions .ROUTE .COMPLEX Qty: 30 5RF Dose Instruction: TAKE ONE TABLET BY MOUTH EVERY DAY Rx Instructions: TAKE ONE TABLET BY MOUTH EVERY DAY icosapent ethyl [Vascepa] 1 gram capsule 2 g PO BID Qty: 120 5RF isosorbide mononitrate 60 mg tablet extended release 24 hr 60 mg PO BID Qty: 60 4RF carvedilol [Coreg] 12.5 mg tablet 12.5 mg PO BID Qty: 60 5RF Rx Instructions: must administer with a meal/food rosuvastatin 40 mg tablet 40 mg PO DAILY Patient Comments: TAKE ONE TABLET BY MOUTH EVERY DAY ranolazine 1,000 mg tablet extended release 12 hr 1,000 mg PO BID Patient Comments: TAKE ONE TABLET BY MOUTH TWICE DAILY clonidine HCl 0.1 mg tablet 1 mg PO DAILYP PRN (Reason: Hypertension) Referrals Follow up/Referrals: Ten Mendoza MD [Primary Care Provider, Internal Medicine] - See instructions Clinical Impressions Clinical Impression: Eye redness Stand Alone Forms Stand Alone Forms: Transfer Record - ED Print Language Print Language: Greenlandic Discharge ED Provider: Allyn Ramirez General Adult HPI General Chief complaint: Eye Problems Stated complaint: blood in eye Time Seen by Provider: 11/07/25 10:46 Mode of Arrival: Ambulatory Source of Information: Patient Description of Symptoms (Recalled from ER Triage Doc. by RN): Patient states he woke up this morning with his left eye red. Denies any itching or discharge from eye, states it was fine when he went to bed. History of Present Illness HPI narrative: Patient is a 70-year-old with past medical history significant for coronary artery disease status post 13 stents on dual antiplatelet therapy presents to emergency department with left eye redness that patient noticed when he got up this morning. Patient wears contacts but not glasses. Has 2 dogs asleep in the bed within that sometimes will wake in the face but does not remember any specific instances of being bit scratched or looked in the face this morning yesterday evening went to bed with normal eye. Patient denies pain or vision changes. Does report that last week patient had multiple episodes of coughing fits but denies any overnight that might have triggered his symptoms. Denies sneezing coughing that might have triggered his symptoms as well. Related Data Home Medications ?Medication ?Instructions ?Recorded ?Confirmed aspirin 81 mg tablet,delayed 81 mg PO DAILY 12/28/17 09/25/25 release (Adult Low Dose Aspirin) nitroglycerin 0.4 mg sublingual 0.4 mg sublingual Q5MINP PRN Chest 12/28/17 09/25/25 tablet (Nitrostat) Pain dapagliflozin propanediol 10 mg 10 mg PO DAILY 11/29/23 09/25/25 tablet (Farxiga) sacubitril 24 mg-valsartan 26 mg 1 tab PO BID 11/29/23 09/25/25 tablet (Entresto) clonidine HCl 0.1 mg tablet 1 mg PO DAILYP PRN Hypertension 02/20/25 09/25/25 ranolazine 1,000 mg 1,000 mg PO BID 02/20/25 09/25/25 tablet,extended release,12 hr rosuvastatin 40 mg tablet 40 mg PO DAILY 02/20/25 09/25/25 famotidine 20 mg tablet mg PO 06/19/25 09/25/25 Previous Rx's ?Medication ?Instructions ?Recorded prasugrel HCl 10 mg tablet 10 mg PO DAILY #30 tabs 04/01/25 (Effient) pantoprazole 40 mg tablet,delayed See Rx Instructions .Route 08/14/25 release .COMPLEX #30 tabs icosapent ethyl 1 gram capsule 2 g (2 x 1 gram) PO BID #120 caps 09/09/25 (Vascepa) isosorbide mononitrate 60 mg 60 mg PO BID #60 tabs 09/09/25 tablet,extended release 24 hr carvedilol 12.5 mg tablet (Coreg) 12.5 mg PO BID #60 tabs 10/09/25 Allergies Allergy/AdvReac Type Severity Reaction Status Date / Time morphine Allergy Intermediate HIVES,SWEAT Verified 09/25/25 09:34 ING clopidogrel (From Plavix) AdvReac Mild nonresponde Verified 09/25/25 09:34 r PFSH [facility] Disclaimer: The information contained in this section may have been updated after the patient was seen, as this information can be updated by other users. Medical History (Updated 11/07/25 @ 13:23 by Allyn Ramirez MD) History of impacted cerumen Hearing difficulty of both ears Irritation of external ear canal Impacted cerumen of both ears Dizziness Abnormal electrocardiogram [ECG] [EKG] Crescendo angina Acute non-ST elevation myocardial infarction (NSTEMI) CHF (congestive heart failure) Hyperlipidemia Hypertension Coronary artery disease Acute hypokalemia Acute non-ST elevation myocardial infarction (NSTEMI) Accelerated hypertension Prostate cancer Pharyngitis Stable angina RBBB Angina at rest Chest pain due to coronary artery disease Chest pain Surgical History History of cardiac cath Hx of CABG Social History Smoking Status: Never smoker second hand exposure: No alcohol intake: never substance use type: denies use current occupational status: employed Travel in the last 8 weeks?: None adopted: No foster care: No household members: family housing: house lives independently: Yes marital status: service: No senior living: No 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 current occupational exposures/hazards: No caffeine: Yes Have you lived/traveled outside [place] in past 30 days?: No Contact w/someone who lives/traveled outside [place] past 30 days?: No Exposure to someone with infectious disease in past 14 days?: No Do you have a fever (greater than 100.4 F or 38 C)?: No Have you tested positive for COVID-19?: No Exposed to someone with COVID-19 in past 14 days?: No Do you have a sore throat?: No Do you have a cough?: No Do you have any weakness?: No Do you have any diarrhea?: No Are you experiencing any unusual bleeding?: No Do you have any muscle aches/pain?: No Do you have any abdominal pain?: No Are you experiencing loss of taste or smell?: No Other Medical History Have you received the Flu Vaccine for this season: No Have you received the Pneumonia Vaccine: No ROS Obtained: Yes All systems reviewed & no additional complaints except as documented Physical Exam General General appearance: alert and in no apparent distress Head Head exam: atraumatic and other Eye Eye exam: Present PERRL (No irregularity of the pupils), EOMI, conjunctival redness (Hemorrhagic chemosis and lower inner lid edema ) and other (no proptosis, no siedel sign, no increased uptake on fluorescein exam); Absent discharge Respiratory Respiratory exam: Absent respiratory distress Cardiovascular Cardiovascular exam: Present regular rate and normal rhythm Abdominal Exam Abdominal exam: Present soft; Absent tenderness Neurological Exam Neurological exam: Present alert and oriented X3 Medical Decision Making Medical Records Screening: Per USPSTF and CDC recommendations, given the prevalence of disease in our region, it is our hospital?s policy to screen for HIV and viral Hepatitis for all patients aged 18 and over and those with ongoing risk factors. Justin Inquiry Pt receiving controlled substance: No Vital Signs: 11/07/25 10:31 11/07/25 10:35 11/07/25 11:00 Temperature 97.7 F Temperature Source Oral Pulse Rate 81 76 Pulse Rate [Right Brachial] 82 Respiratory Rate 16 Blood Pressure 139/86 132/97 H Blood Pressure [Right Arm] 139/86 Blood Pressure Mean [Right Arm] 103 Blood Pressure Source [Right Arm] Automatic Cuff Blood Pressure Position [Right Arm] Sitting 02 Sat by Pulse Oximetry 97 96 98 Oxygen Delivery Method Room Air Room Air 11/07/25 12:40 Temperature Temperature Source Pulse Rate 74 Pulse Rate [Right Brachial] Respiratory Rate Blood Pressure 128/75 Blood Pressure [Right Arm] Blood Pressure Mean [Right Arm] Blood Pressure Source [Right Arm] Blood Pressure Position [Right Arm] 02 Sat by Pulse Oximetry 96 Oxygen Delivery Method Room Air Lab Data Lab Results 11/07/25 11:40: WBC 5.9, RBC 3.94 L, Hgb 12.2 L, Hct 36.9 L, MCV 93.7, MCH 31.0, MCHC 33.1, RDW 13.6, Plt Count 238, MPV 10.1, Neut % (Auto) 69.7, Lymph % (Auto) 20.5, [place] % (Auto) 6.3, Eos % (Auto) 2.9, Baso % (Auto) 0.3, Neut # (Auto) 4.1, Lymph # (Auto) 1.2, [place] # (Auto) 0.4, Eos # (Auto) 0.2, Baso # (Auto) 0.0, PT 10.5, INR 0.94, Sodium 142, Potassium 4.3, Chloride 105, Carbon Dioxide 25, Anion Gap 16.3 H, BUN 27 H, Creatinine 1.20, Estimated Creat Clear 63, Estimated GFR 60, Est GFR ( Amer) 72, Glucose 106 H, Calcium 9.3, Total Bilirubin 0.5, AST 28, ALT 17, Alkaline Phosphatase 64, Total Protein 7.7, Albumin 4.5, Globulin 3.2, Albumin/Globulin Ratio 1.4 11/07/25 11:40 11/07/25 11:40 Orders (Tests/Meds): ED MEDICATIONS Generic Name Dose Route Start Last Admin Trade Name Freq PRN Reason Stop Dose Admin Ampicillin Sodium/Sulbactam 100 mls @ 200 mls/hr 11/07/25 11:30 11/07/25 13:01 Sodium 3 gm/ Sodium Chloride IV 11/17/25 11:29 200 mls/hr Q6H JENELLE Administration Discontinued Medications Generic Name Dose Route Start Last Admin Trade Name Freq PRN Reason Stop Dose Admin Iopamidol 75 ml 11/07/25 12:38 11/07/25 12:39 Iopamidol-370 (76%);100ml Bottle IV 11/07/25 12:39 75 ml ONCE ONE Administration ORDERS Category Date Time Status CT orbit BI wo/w con Stat Cat Scan 11/07/25 11:17 Taken Complete Blood Count Auto Diff Stat Lab 11/07/25 11:40 Completed Comprehensive Metabolic Panel Stat Lab 11/07/25 11:40 Completed Prothrombin Time INR Stat Lab 11/07/25 11:40 Completed Blood Culture Stat Micro 11/07/25 11:38 Received Medical Decision Narrative: In summary, this 70-year-old male presents to the emergency department today with painless red eye. On initial evaluation patient is hemodynamically stable saturating appropriately on room air afebrile in no acute distress. Differential diagnosis includes but is not limited to hemorrhagic chemosis, FB, open globe, endopthalmitis, foregin body. Based on these concerns, I ordered CBC, CMP, ct orbit with and without IV contrast Low suspicion for open globe based off the patient's history and atrumatic exam but in abundance of caution avoided checking IOPs and placed eye sheild on affected eye. Low suspicion for endophthalmitis based off of no diplopia but still in the differential so we will give a dose of IV Unasyn in the setting of potential dog lick/pucture exposure. High suspicion of spontaneous hemorrhagic chemosis in the setting of dual antiplatelet therapy. I had an interactive conversation with Dr. Knight and the ophthalmology department with recommendations for transfer for dilated eye exam for evaluation of intraorbital hemorrhage as patient is on dual antiplatelet therapy. Patient was initially hesitant on traveling to [place] due to the weather but ultimately was agreeable to transfer for further evaluation. Patient received Unasyn for treatment CT imaging personally interpreted demonstrate no foreign body visualized Of note, social determinants of health include limited access to specialty care. Critical Care Critical Care Time Critical Care Time: No
[2025-11-07 11:00] VITALS: BP 132/97; PULSE 76; O2SAT 98
--- NOTE | 2025-11-07 11:17 | CT_ITS ---
FINAL REPORT TECHNIQUE: Thin-section axial CT images were performed through the temporal bones before and after contrast administration. Coronal and sagittal reformatted images were submitted. This study was performed with techniques to keep radiation doses as low as reasonably achievable, (ALARA). Individualized dose reduction techniques using automated exposure control or adjustment of mA and/or kV according to the patient's size were employed. CLINICAL HISTORY: hemorrhagic chemosis, concern for open globe vs FB woke up this morning with a red left eye, nki visible white part of eyeball is dark red FINDINGS: There is mild mucoperiosteal thickening in both maxillary sinuses. Ostiomeatal units are patent. There is no air-fluid levels. There is mild soft tissue inflammation in the extraconal fat on the left which is asymmetrically greater than that seen on the right. The globe is intact. No definite radiopaque foreign body is identified. IMPRESSION: Mild inflammatory reaction surrounding the left globe. No definite foreign body is identified. No abscess identified. Mild changes of chronic bilateral maxillary sinusitis Reviewed, Interpreted and Dictated by Walter Ayala MD Transcribed by Staci Rios Authenticated and [facility]
[2025-11-07 11:52] LABS: Hematocrit 36.9 % (42.0-52.0); Hemoglobin 12.2 g/dL (14.1-18.0); Immature Granulocytes % 0.3 %; Mean Corpuscular HGB Conc 33.1 g/dL (31.8-35.4); Mean Corpuscular Hemoglobin 31.0 pg (27.0-31.2); Mean Corpuscular Volume 93.7 fl (80-94); Nucleated Red Blood Cells % 0 %; Platelet Count 238 K/mm3 (142-424); Red Blood Count 3.94 M/mm3 (4.60-6.20); Red Cell Distribution Width-SD 46.7 fL; White Blood Count 5.9 K/mm3 (4.8-10.8)
[2025-11-07 12:01] LABS: Albumin Level 4.5 g/dl (3.5-5.0); Chloride 105 mmol/L (98-107); Potassium 4.3 mmoL/L (3.5-5.1); Sodium 142 mmol/L (136-145)
[2025-11-07 12:04] LABS: Alanine Aminotransferase 17 U/L (12-78); Albumin/Globulin Ratio 1.4 (1.1-1.8); Alkaline Phosphatase 64 U/L (38-126); Anion Gap 16.3 mEq/L (5-15); Aspartate Amino Transferase 28 U/L (17-59); Bilirubin,Total 0.5 mg/dl (0.2-1.3); Blood Urea Nitrogen 27 mg/dl (9-20); Carbon Dioxide 25 mmol/L (22.0-30.0); Creatinine Clearance Estimated 63 mL/min (50-200); Creatinine,Serum 1.20 mg/dl (0.66-1.25); Estimated Glomerular Filt Rate 60 ml/min (>60); GFR (African American) 72 ML/MIN (>60); Globulin 3.2 g/dL (1.3-3.2); Total Protein,Serum 7.7 g/dl (6.3-8.2)
[2025-11-07 12:05] LABS: Calcium 9.3 mg/dl (8.4-10.2); Glucose 106 mg/dl (74-100)
[2025-11-07 12:24] LABS: INR 0.94 (0.9-1.1); Prothrombin Time 10.5 seconds (10.1-12.5)
[2025-11-07] MEDS: IOPAMIDOL-370 (76%);100ML BOTTLE 75 ML IV (12:39)
--- NOTE | 2025-11-07 12:39 | PC.NURSE ---
Called for a consult for Dr. Worrell, they are going to call back.
[2025-11-07 12:40] VITALS: BP 128/75; PULSE 74; O2SAT 96
--- NOTE | 2025-11-07 12:59 | PC.NURSE ---
R eye 20/50 L eye 20/40 Both eyes 20/25
[2025-11-07] MEDS: AMPICILLIN/SULBACTAM 3 GM in 0.9 % SODIUM CHLORIDE 100 ML IV (13:01)
--- NOTE | 2025-11-07 13:09 | PC.NURSE ---
Pt is refusing to go to , made them aware.
--- NOTE | 2025-11-07 13:13 | PC.NURSE ---
Pt is willing to go to [facility] now, called them back and made them aware
[2025-11-07 13:43] VITALS: BP 128/75; PULSE 74; RESP 16; TEMP 36.5; O2SAT 96
== END 2025-11-07 13:45 | disposition other institution (70) ==
PROVIDERS: Emergency Provider Student in an Organized Health Care Education/Training Program; PCP Internal Medicine Adolescent Medicine
DX: H57.89 Other specified disorders of eye and adnexa (principal); Z88.8 Allergy status to other drugs, medicaments and biological substances; Z88.5 Allergy status to narcotic agent; I11.0 Hypertensive heart disease with heart failure; I50.9 Heart failure, unspecified; E78.5 Hyperlipidemia, unspecified; I25.10 Atherosclerotic heart disease of native coronary artery without angina pectoris; Z79.82 Long term (current) use of aspirin; Z79.899 Other long term (current) drug therapy
CPT/HCPCS: 70482; 80053; 85025; 85610; 87040; 96365; 96366; 99285; J0295; Q9967